=== PATIENT | female | born 1930 | race Caucasian/White ===

== ENCOUNTER 2016-12-10 18:24 | Emergency (ER) | payer MEDICARE ==
[2016-12-10] MEDS ORDERED: SODIUM CHLORIDE 1,000 ML IV SCH (19:30)
[2016-12-10 19:39] VITALS: BMI 29.2
[2016-12-10 20:08] LABS: BASOPHIL 0.7 % (0-2.0); EOSINOPHIL 4.4 % (0-4.5); MCH 31.9 pg (25.7-33.7); MCHC 33.2 g/dl (32.0-36.0); MEAN CELL VOLUME 96.2 fl (80-96); MEAN PLT VOLUME 7.6 fl (7.5-11.1); NEUTROPHILS 61.2 % (42.8-82.8); PLATELET COUNT 348 K/MM3 (134-434); RDW 14.5 % (11.6-15.6)
[2016-12-10 23:00] LABS: ALBUMIN 3.1 g/dl (3.4-5.0); ANION GAP 9 (8-16); BILIRUBIN,TOTAL 0.3 mg/dL (0.2-1.0); CALCIUM 8.8 mg/dL (8.5-10.1); CO2 26 mmol/L (21-32); CREATININE 1.1 mg/dL (0.55-1.02); GLUCOSE,RANDOM 93 mg/dL (74-106); SGOT/AST 12 U/L (15-37); SGPT/ALT 11 U/L (12-78); TOT PROT 5.9 g/dl (6.4-8.2)
[2016-12-10 23:03] LABS: ALK PHOS 69 U/L (45-117); TROPONIN I < 0.02 ng/ml (0.00-0.05)
--- NOTE | 2016-12-10 23:46 | PDOC ---
History of Present Illness - General Chief Complaint: Lightheaded Stated Complaint: Lightheaded Time Seen by Provider: 12/10/16 19:07 History Source: Patient Exam Limitations: No Limitations - History of Present Illness Initial Comments: 12/10/16 21:41 86yo Female patient presented to ED c/o dizziness. Patient states while watching TV the room began spinning for approximately 30 sec. She closed her eye - spinning stopped, but felt pain to left side of body from head to toes w/ left sided jaw pain. Patient reports sx began around 6pm tonight. She reported that she took a Tramadol for pain at 10am this morning and thinks this may have something to do with her symptoms. Denies CP, Abd pain, Back pain, Diff breathing, n/v/d, fever, cough, congestion, dysuria, hematuria or any other complaints at this time. Past History - Travel Traveled outside of the country in the last 30 days: No Close contact w/someone who was outside of country & ill: No - Past Medical History Allergies/Adverse Reactions: Allergies Allergy/AdvReac Type Severity Reaction Status Date / Time No Known Allergies Allergy Verified 12/10/16 19:39 Home Medications: Ambulatory Orders Aspirin [ASA -] 81 mg PO DAILY #0 tab.chew 08/22/12 Levothyroxine [Synthroid -] 75 mcg PO DAILY #0 tablet 08/22/12 Meclizine HCl [Antivert -] 25 mg PO Q6H PRN #30 tablet 08/22/12 Olmesartan/Hydrochlorothiazide [Benicar Hct 40-25 mg Tablet] 1 each PO DAILY #0 tablet 08/22/12 Tramadol HCl 50 mg PO TID PRN #10 tablet MDD 3 10/14/16 Levofloxacin [Levaquin] 750 mg PO DAILY #7 tab 12/11/16 HTN: Yes Thyroid Disease: Yes - Surgical History Appendectomy: Yes - Psycho/Social/Smoking Cessation Hx Anxiety: No Suicidal Ideation: No Smoking Status: No Smoking History: Never smoked Have you smoked in the past 12 months: No Number of Cigarettes Smoked Daily: 0 Hx Alcohol Use: No Drug/Substance Use Hx: No Hx Substance Use Treatment: No Review of Systems - Review of Systems Able to Perform ROS?: Yes Is the patient limited Cymro proficient: No Constitutional: No: Chills, Fever, Weakness HEENTM: No: Blurred Vision, Double Vision, Ear Pain, Difficulty Swallowing Respiratory: No: Symptoms reported, See HPI, Cough, Orthopnea, Shortness of Breath, SOB with Exertion, SOB at Rest, Stridor, Wheezing, Productive cough, Hemoptysis, Other Cardiac (ROS): No: Symptoms Reported, See HPI, Chest Pain, Edema, Irregular Heart Rate, Lightheadedness, Palpitations, Syncope, Chest Tightness, Other ABD/GI: No: Symptoms Reported, See HPI, Abdominal Distended, Abd. Pain w/ defecation, Blood Streaked Bowels, Constipated, Diarrhea, Difficulty Swallowing , Nausea, Poor Appetite, Poor Fluid Intake, Rectal Bleeding, Vomiting, Indigestion, Abdominal cramping, Tarry Stools, Other : No: Symptoms Reported, See HPI, Burning, Dysuria, Discharge, Frequency, Flank Pain, Hematuria, Incontinence, Pain, Urgency, Testicular Mass, Testicular Swelling, Lesions, Testicular Pain, Other Musculoskeletal: Yes: Muscle Pain (Throughout left side of patients' body.). No : Back Pain Integumentary: No: Symptoms Reported, See HPI, Bruising, Change in Color, Change in Hair/Nails, Dryness, Erythema, Flushing, Lesions, Lumps, Pallor, Pruritus, Rash, Sweating, Other Neurological: No: Symptoms reported, See HPI, Headache, Numbness, Paresthesia, Pre-Existing Deficit, Seizure, Tingling, Tremors, Weakness, Unsteady Gait, Ataxia, Dizziness, Other All Other Systems: Reviewed and Negative *Physical Exam - Vital Signs Last Vital Signs Temp Pulse Resp BP Pulse Ox 97.9 F 72 20 171/60 100 12/10/16 19:00 12/10/16 19:00 12/10/16 19:00 12/10/16 19:00 12/10/16 19:00 - Physical Exam General Appearance: Yes: Nourished, Appropriately Dressed. No: Apparent Distress, Mild Distress, Moderate Distress, Severe Distress HEENT: positive: EOMI, HOMER, Normal ENT Inspection, Normal Voice, Symmetrical, TMs Normal, Pharynx Normal Neck: positive: Trachea midline, Supple. negative: Decreased range of motion, Stridor, Lymphadenopathy (R), Lymphadenopathy (L), Tender lateral, Tender midline Respiratory/Chest: positive: Lungs Clear, Normal Breath Sounds. negative: Respiratory Distress, Accessory Muscle Use, Labored Respiration, Rapid RR, Crackles, Rales, Rhonchi, Stridor, Wheezing Cardiovascular: positive: Regular Rhythm, Regular Rate. negative: JVD, Murmur Gastrointestinal/Abdominal: positive: Normal Bowel Sounds, Soft, Distended. negative: Guarding, Rebound, Tenderness Musculoskeletal: positive: Normal Inspection. negative: CVA Tenderness Extremity: positive: Normal Capillary Refill, Normal Inspection, Normal Range of Motion. negative: Swelling, Calf Tenderness Integumentary: positive: Normal Color, Dry, Warm Neurologic: positive: medical asst II-XII NML intact, Fully Oriented, Alert, Normal Mood/ Affect, Normal Response, Motor Strength 5/5 Heart Score/ECG Review - History History: Slightly suspicious - Electrocardiogram EKG: Normal - Age Age: >/= 65 - Risk Factors Risk Factors Heart Score: Yes Hx Hypertension Based on the list above the patient has:: 1-2 risk factors - Troponin Troponin: </= normal limit - Score Heart Score - Total: 3 - ECG Impressions Normal ECG: Yes Non-specific ST Elevation: No Ischemic Changes: No Bradycardia: No Torsades mic Pointes: No WPW: No Comment:: 12/10/16 23:49 NORMAL EKG. ED Treatment Course - LABORATORY CBC & Chemistry Diagram: 12/10/16 19:40 12/10/16 22:20 - ADDITIONAL ORDERS Additional order review: Laboratory Results 12/10/16 12/10/16 12/10/16 22:20 19:39 19:39 Sodium 141 Cancelled Potassium 4.2 Cancelled Chloride 106 Cancelled Carbon Dioxide 26 Cancelled Anion Gap 9 Cancelled BUN 26 H D Cancelled Creatinine 1.1 H Cancelled Creat Clearance w eGFR 46.98 Cancelled Random Glucose 93 Cancelled Calcium 8.8 Cancelled Total Bilirubin 0.3 D Cancelled AST 12 L Cancelled ALT 11 L D Cancelled Alkaline Phosphatase 69 D Cancelled Creatine Kinase 64 Cancelled Troponin I < 0.02 Cancelled B-Natriuretic Peptide 91.61 Cancelled Total Protein 5.9 L Cancelled Albumin 3.1 L Cancelled 12/10/16 19:40 RBC 3.49 L MCV 96.2 H MCHC 33.2 RDW 14.5 MPV 7.6 Neutrophils % 61.2 Lymphocytes % 19.4 Monocytes % 14.3 H Eosinophils % 4.4 Basophils % 0.7 - RADIOLOGY Radiology Studies Ordered: Category Date Time Status HEAD CT WITHOUT CONTRAST [CT] Stat CT Scan 12/10/16 19:20 Completed CHEST X-RAY PORTABLE* [RAD] Stat Radiology 12/10/16 19:20 Completed *DC/Admit/Observation/Transfer Diagnosis at time of Disposition: UTI (urinary tract infection), bacterial - Discharge Dispostion Disposition: HOME Condition at time of disposition: Stable Admit: No - Prescriptions - Patient Instructions
--- NOTE | 2016-12-11 00:05 | HP ---
Admitting History and Physical - Primary Care Physician PCP: Phyllis Myers - Smoking History Smoking history: Never smoked Have you smoked in the past 12 months: No Aproximately how many cigarettes per day: 0 - Alcohol/Substance Use Hx Alcohol Use: No Home Medications - Allergies Allergies/Adverse Reactions: Allergies Allergy/AdvReac Type Severity Reaction Status Date / Time No Known Allergies Allergy Verified 12/10/16 19:39 - Home Medications Home Medications: Ambulatory Orders Aspirin [ASA -] 81 mg PO DAILY #0 tab.chew 08/22/12 Levothyroxine [Synthroid -] 75 mcg PO DAILY #0 tablet 08/22/12 Meclizine HCl [Antivert -] 25 mg PO Q6H PRN #30 tablet 08/22/12 Olmesartan/Hydrochlorothiazide [Benicar Hct 40-25 mg Tablet] 1 each PO DAILY #0 tablet 08/22/12 Tramadol HCl 50 mg PO TID PRN #10 tablet MDD 3 10/14/16 Physical Examination Vital Signs: Vital Signs Temperature 97.9 F 12/10/16 19:00 Pulse Rate 72 12/10/16 19:00 Respiratory Rate 20 12/10/16 19:00 Blood Pressure 171/60 12/10/16 19:00 O2 Sat by Pulse Oximetry (%) 100 12/10/16 19:00 HENT: Yes: Atraumatic Neck: Yes: Supple Cardiovascular: Yes: Regular Rate and Rhythm Respiratory: Yes: CTA Bilaterally Gastrointestinal: Yes: Normal Bowel Sounds Extremities: Yes: WNL Labs: CBC, BMP 12/10/16 19:40 12/10/16 22:20
--- NOTE | 2016-12-11 00:32 | PDOC ---
*Physical Exam - Vital Signs Last Vital Signs Temp Pulse Resp BP Pulse Ox 97.9 F 72 20 171/60 100 12/10/16 19:00 12/10/16 19:00 12/10/16 19:00 12/10/16 19:00 12/10/16 19:00 ED Treatment Course - LABORATORY CBC & Chemistry Diagram: 12/10/16 19:40 12/10/16 22:20 - ADDITIONAL ORDERS Additional order review: Laboratory Results 12/10/16 12/10/16 12/10/16 22:20 19:39 19:39 Sodium 141 Cancelled Potassium 4.2 Cancelled Chloride 106 Cancelled Carbon Dioxide 26 Cancelled Anion Gap 9 Cancelled BUN 26 H D Cancelled Creatinine 1.1 H Cancelled Creat Clearance w eGFR 46.98 Cancelled Random Glucose 93 Cancelled Calcium 8.8 Cancelled Total Bilirubin 0.3 D Cancelled AST 12 L Cancelled ALT 11 L D Cancelled Alkaline Phosphatase 69 D Cancelled Creatine Kinase 64 Cancelled Troponin I < 0.02 Cancelled B-Natriuretic Peptide 91.61 Cancelled Total Protein 5.9 L Cancelled Albumin 3.1 L Cancelled 12/10/16 19:40 RBC 3.49 L MCV 96.2 H MCHC 33.2 RDW 14.5 MPV 7.6 Neutrophils % 61.2 Lymphocytes % 19.4 Monocytes % 14.3 H Eosinophils % 4.4 Basophils % 0.7 Medical Decision Making - Medical Decision Making 12/11/16 00:32 agree with care from WHITNEY Maldonado *DC/Admit/Observation/Transfer Diagnosis at time of Disposition: UTI (urinary tract infection), bacterial - Discharge Dispostion Disposition: HOME Condition at time of disposition: Stable - Prescriptions Prescriptions: Levofloxacin [Levaquin] 750 mg PO DAILY #7 tab Meclizine HCl 25 mg PO TID PRN #30 tab.chew PRN Reason: Dizziness - Referrals Referrals: Jewel Nassar MD [Primary Care Provider] - - Patient Instructions Printed Discharge Instructions: Urinary Tract Infection
[2016-12-11 00:33] LABS: URINE APPEARANCE TURBID; URINE BILIRUBIN NEGATIVE (NEGATIVE); URINE COLOR YELLOW; URINE GLUCOSE (UA) NEGATIVE (NEGATIVE); URINE KETONE NEGATIVE (NEGATIVE); URINE NITRITE POSITIVE (NEGATIVE); URINE UROBILINOGEN NEGATIVE E.U./dl (0.2-1.0)
[2016-12-11 00:49] LABS: URINE BLOOD 2+ (NEGATIVE); URINE LEUK ESTERASE 3+ (NEGATIVE); URINE PROTEIN 1+ (NEGATIVE)
[2016-12-11 00:51] LABS: URINE BACTERIA MANY /hpf (NONE SEEN); URINE MUCUS RARE; URINE RBC 24 /hpf (0-3); URINE WBC 1792 /hpf (3-5)
[2016-12-11] MEDS ORDERED: LEVOFLOXACIN 750 MG IVPB 150 ML IVPB ONE ×2 (01:18→01:54)
[2016-12-11 03:50] VITALS: BP 180/78; PULSE 71; TEMP 98
[2016-12-11] MEDS ORDERED: LEVOTHYROXINE NA 75 MCG TABLET (FP) PO SCH (10:00)
[2016-12-11] MEDS ORDERED: PATIENT'S OWN MEDICATION (NON-FORMULARY) (Olmesartan/Hydrochlorothiazide [Benicar Hct 40-2 PO SCH (10:00)
[2016-12-11] MEDS ORDERED: ASPIRIN 81 MG CHEWABLE TABLETS PO SCH (10:00)
--- NOTE | 2016-12-11 16:08 | EKG ---
Test Reason : Blood Pressure : / mmHG Vent. Rate : 063 BPM Atrial Rate : 063 BPM P-R Int : 208 ms QRS Dur : 084 ms QT Int : 434 ms P-R-T Axes : 059 012 047 degrees QTc Int : 444 ms NORMAL SINUS RHYTHM POSSIBLE LEFT ATRIAL ENLARGEMENT BORDERLINE ECG WHEN COMPARED WITH ECG OF 13-OCT-2016 20:57, NO SIGNIFICANT CHANGE WAS FOUND Confirmed by OSKAR KIRKLAND MD ([id number]) on 12/11/2016 4:07:46 PM Referred By: Confirmed By:OSKAR KIRKLAND MD
== END 2016-12-11 04:26 | disposition home or self-care (01) ==
LOC: JER 18:24 → UNDOADMIN 12-11 00:03 → JERBED 12-11 00:03 → JER 12-11 04:26
DX: N39.0 Urinary tract infection, site not specified (principal); I10 Essential (primary) hypertension; E07.9 Disorder of thyroid, unspecified
CPT/HCPCS: 36415; 70450-TC; 71010-TC; 80053; 81003; 81015; 82550; 83880; 84484; 85025; 87086; 87186; 93005; 93010; 99284-25

== ENCOUNTER 2017-06-27 12:55 | Inpatient (IN) | payer MEDICARE ==
--- NOTE | 2017-06-27 13:50 | PDOC ---
History of Present Illness - General History Source: Patient Exam Limitations: No Limitations - History of Present Illness Initial Comments: 06/27/17 15:37 The patient is a 87 year old female brought via EMS nad presenting with her daughter, with a significant past medical history of HTN, chronic back pain, chronic bilateral knee pain, prolapsed bladder and thyroid disease, who presents to the emergency department with weakness since yesterday. The daughter reports that the patient fell yesterday (slid off her couch) and attempted to break her fall against the cough, which she did but then slid to the floor. There was no head injury, or loc. The patient has urinary incontinence sometimes. The pateint has an upcoming breast biopsy after a nodule was found in her breast. The patient denies chest pain, shortness of breath, headache and dizziness. Denies fever, chills, nausea, vomit, diarrhea and constipation. Denies dysuria, frequency, urgency and hematuria. Allergies: None Past surgical history: Appendectomy Social history: No alcohol, tobacco or drug use reported PMD - Dr. Kike Nassar <Vic Valenzuela - Last Filed: 06/27/17 15:37> - General History Source: Patient Exam Limitations: No Limitations <Yadiel Carmona - Last Filed: 06/27/17 15:49> - General Chief Complaint: Weakness Stated Complaint: CONFUSE, SHAKING Time Seen by Provider: 06/27/17 13:16 Past History <Vic Valenzuela - Last Filed: 06/27/17 15:37> - Past Medical History HTN: Yes Thyroid Disease: Yes - Surgical History Appendectomy: Yes - Psycho/Social/Smoking Cessation Hx Anxiety: No Suicidal Ideation: No Smoking Status: No Smoking History: Never smoked Have you smoked in the past 12 months: No Number of Cigarettes Smoked Daily: 0 Hx Alcohol Use: No Drug/Substance Use Hx: No Hx Substance Use Treatment: No <Yadiel Carmona - Last Filed: 06/27/17 15:49> - Past Medical History Allergies/Adverse Reactions: Allergies Allergy/AdvReac Type Severity Reaction Status Date / Time No Known Allergies Allergy Verified 06/27/17 13:28 Home Medications: Ambulatory Orders Aspirin [ASA -] 81 mg PO DAILY #0 tab.chew 08/22/12 Levothyroxine [Synthroid -] 75 mcg PO DAILY #0 tablet 08/22/12 Meclizine HCl [Antivert -] 25 mg PO Q6H PRN #30 tablet 08/22/12 Olmesartan/Hydrochlorothiazide [Benicar Hct 40-25 mg Tablet] 1 each PO DAILY #0 tablet 08/22/12 Tramadol HCl 50 mg PO TID PRN #10 tablet MDD 3 10/14/16 Review of Systems - Review of Systems Able to Perform ROS?: Yes Comments:: 06/27/17 15:37 CONSTITUTIONAL: Reported: Genralzied weakness No reported: Fever, Chills, Diaphoresis, Malaise, Loss of Appetite HEENT: No reported: Rhinorrhea, Nasal Congestion, Throat Pain, Throat Swelling, Difficulty Swallowing, Mouth Swelling, Ear Pain, Eye Pain, Visual Changes CARDIOVASCULAR: No reported: Chest Pain, Syncope, Palpitations, Irregular Heart Rate, Lightheadedness, Peripheral Edema RESPIRATORY: No reported: Cough, Shortness of Breath, SOB with Exertion, Orthopnea, Wheezing , Stridor, Hemoptysis GASTROINTESTINAL: No reported: Abdominal pain, Abdominal Distension, Nausea, Vomiting, Diarrhea, Constipation, Melena, Hematochezia GENITOURINARY: No reported: Dysuria, Frequency, Urgency, Hesitancy, Flank Pain, Genital Pain MUSCULOSKELETAL: No reported: Myalgia, Arthralgia, Joint Swelling, Back pain, Neck Pain SKIN: No reported: Rash, Itching, Pallor HEMEATOLOGIC/IMMUNOLOGIC: No reported: Easy Bleeding, Easy Bruising, Lymphadenopathy, Frequent infections ENDOCRINE: No reported: Unexplained Weight Gain, Unexplained Weight Loss, Heat Intolerance , Cold Intolerance NEUROLOGIC: No reported: Headache, Focal Weakness, Paresthesias, Vertigo, Lightheadedness, Unsteady Gait, Seizure, Mental Status Changes, Incontinence PSYCHIATRIC: No reported: Anxiety, Depression <Vic Valenzuela - Last Filed: 06/27/17 15:37> *Physical Exam - Vital Signs Last Vital Signs Temp Pulse Resp BP Pulse Ox 99.0 F 71 22 142/49 95 06/27/17 13:05 06/27/17 13:05 06/27/17 13:05 06/27/17 13:05 06/27/17 13:05 - Physical Exam Comments: 06/27/17 15:37 GENERAL: The patient is awake, alert, Nontoxic - in no acute distress. HEAD: Normocephalic, atraumatic. EYES: extraocular movements intact, sclera anicteric, conjunctiva clear. ENT: Normal voice, Moist mucous membranes. NECK: Normal range of motion, supple LUNGS: Breath sounds equal, clear to auscultation bilaterally. No wheezes, no rhonchi, no rales. HEART: Regular rate and rhythm, without murmur, rub or gallop. ABDOMEN: Soft, nontender, normoactive bowel sounds. No guarding, no rebound.No CVA tenderness EXTREMITIES: Normal range of motion, no edema. No clubbing or cyanosis. No cords, erythema, or tenderness. NEUROLOGICAL: No facial assymetry, Normal speech, PSYCH: Normal mood, normal affect. SKIN: Warm, Dry, normal turgor, <Vic Valenzuela - Last Filed: 06/27/17 15:37> - Vital Signs Last Vital Signs Temp Pulse Resp BP Pulse Ox 99.0 F 71 22 142/49 95 06/27/17 13:05 06/27/17 13:05 06/27/17 13:05 06/27/17 13:05 06/27/17 13:05 <Yadiel Carmona - Last Filed: 06/27/17 15:49> Heart Score/ECG Review - ECG Impressions Comment:: 06/27/17 15:49 Twelve-lead EKG was performed and reviewed by me. There is normal sinus rhythm with a normal rate. Rate of 63 The axis is normal. The intervals are normal. There are no ST or T wave abnormalities. <Yadiel Carmona - Last Filed: 06/27/17 15:49> ED Treatment Course - LABORATORY CBC & Chemistry Diagram: 06/27/17 14:02 06/27/17 14:02 - ADDITIONAL ORDERS Additional order review: Laboratory Results 06/27/17 06/27/17 06/27/17 14:02 14:02 14:02 INR Sodium 134 L Potassium 4.6 Chloride 98 Carbon Dioxide 24 Anion Gap 12 BUN 34 H D Creatinine 2.1 H D Creat Clearance w eGFR 22.23 Random Glucose 98 Calcium 8.9 Total Bilirubin 0.7 D AST 17 D ALT 13 Alkaline Phosphatase 85 D Creatine Kinase 165 Creatine Kinase Index 0.9 CK-MB (CK-2) 1.640 Troponin I < 0.02 Total Protein 6.7 Albumin 3.4 TSH 2.18 Urine Color Yellow Urine Appearance Cloudy Urine pH 5.0 Urine Protein 1+ H Urine Glucose (UA) Negative Urine Ketones Negative Urine Blood 2+ H Urine Nitrite Positive Urine Bilirubin Negative Urine Urobilinogen Negative Ur Leukocyte Esterase 2+ H Urine RBC 2 Urine WBC 530 Ur Epithelial Cells Rare Urine Mucus Rare 06/27/17 14:02 INR 1.32 H D Sodium Potassium Chloride Carbon Dioxide Anion Gap BUN Creatinine Creat Clearance w eGFR Random Glucose Calcium Total Bilirubin AST ALT Alkaline Phosphatase Creatine Kinase Creatine Kinase Index CK-MB (CK-2) Troponin I Total Protein Albumin TSH Urine Color Urine Appearance Urine pH Urine Protein Urine Glucose (UA) Urine Ketones Urine Blood Urine Nitrite Urine Bilirubin Urine Urobilinogen Ur Leukocyte Esterase Urine RBC Urine WBC Ur Epithelial Cells Urine Mucus 06/27/17 14:02 RBC 3.20 L MCV 91.3 MCHC 32.4 RDW 15.8 H MPV 8.2 Neutrophils % Y Lymphocytes % Y - Medications Given in the ED: ED Medications Discontinued Medications Generic Name Dose Route Start Last Admin Trade Name Freq PRN Reason Stop Dose Admin Ceftriaxone Sodium 1 gm/ 50 mls @ 100 mls/hr 06/27/17 14:36 06/27/17 15:10 Dextrose IVPB 06/27/17 15:05 100 mls/hr ONCE ONE Administration <Vic Valenzuela - Last Filed: 06/27/17 15:37> - LABORATORY CBC & Chemistry Diagram: 06/27/17 14:02 06/27/17 14:02 - RADIOLOGY Radiology Studies Ordered: Category Date Time Status CHEST X-RAY PORTABLE* [RAD] Stat Radiology 06/27/17 13:45 Ordered <Yadiel Carmona - Last Filed: 06/27/17 15:49> Medical Decision Making - Medical Decision Making 06/27/17 13:47 89y F hx of hypothyroidism, htn, chronic back pain, prolapsed bladder presents for evaluation of weakness. Per the daugther the pt has been unable to ambulate by herself last night and was shaky. The pt denies any focal complaints including chest pain, sob, cough, abd pain, dysuria, diarrhea, headache, dizziness, dsyarthria, numbness/tingling/weakness, neck pain. pts exam is also nonfocal. differential is wide and includes occult infection, uti/pna, acs, anemia, metabolic dernagement, thyroid disease will ck labs, ua will ck ekg/trops will reassess A portion of this note was documented by scribe services under my direction. I have reviewed the details of the note, within reason, and agree with the documentation with the following case summary and management plan written by me 06/27/17 15:34 labs reviewed noted for elevated cr. to 2.1 up tfomr 1.1 ua c/w uti will admit for further management of Uti and sobia pt written for ctx case dw dr. wynne agree with adimssion for further management Case discussed in detail with admitting physician including history, physical exam and ancillary studies. Admitting physician has assumed care for the patient, will follow all pending diagnostics and will complete the evaluation and treatment. <Yadiel Carmona - Last Filed: 06/27/17 15:49> *DC/Admit/Observation/Transfer - Attestations Scribe Attestion: 06/27/17 15:37 Documentation prepared by Vic Valenzuela, acting as medical logistics specialist for Yadiel Carmona MD <Vic Valenzuela - Last Filed: 06/27/17 15:37> - Discharge Dispostion Admit: Yes <Yadiel Carmona - Last Filed: 06/27/17 15:49> Diagnosis at time of Disposition: UTI (urinary tract infection), bacterial Accident due to mechanical fall without injury Qualifiers: Encounter type: initial encounter Qualified Code(s): W19.XXXA - Unspecified fall, initial encounter Acute kidney failure Qualifiers: Acute renal failure type: unspecified Qualified Code(s): N17.9 - Acute kidney failure, unspecified - Discharge Dispostion Condition at time of disposition: Stable - Referrals Referrals: Jewel Nassar MD [Primary Care Provider] -
[2017-06-27 14:15] LABS: MCH 29.6 pg (25.7-33.7); MCHC 32.4 g/dl (32.0-36.0); MEAN CELL VOLUME 91.3 fl (80-96); MEAN PLT VOLUME 8.2 fl (7.5-11.1); PLATELET COUNT 286 K/MM3 (134-434); RDW 15.8 % (11.6-15.6); WHITE BLOOD COUNT 20.9 K/mm3 (4.0-10.0)
[2017-06-27 14:18] LABS: URINE APPEARANCE CLOUDY; URINE BILIRUBIN NEGATIVE (NEGATIVE); URINE BLOOD 2+ (NEGATIVE); URINE COLOR YELLOW; URINE GLUCOSE (UA) NEGATIVE (NEGATIVE); URINE KETONE NEGATIVE (NEGATIVE); URINE LEUK ESTERASE 2+ (NEGATIVE); URINE NITRITE POSITIVE (NEGATIVE); URINE PROTEIN 1+ (NEGATIVE); URINE UROBILINOGEN NEGATIVE mg/dL (0.2-1.0)
[2017-06-27 14:22] LABS: URINE MUCUS RARE; URINE RBC 2 /hpf (0-3); URINE WBC 530 /hpf (3-5)
[2017-06-27] MEDS ORDERED: CEFTRIAXONE 1 GM in DEXTROSE 5%-WATER - 50 ML IVPB ONE (14:36)
[2017-06-27 14:42] LABS: ALBUMIN 3.4 g/dl (3.4-5.0); ANION GAP 12 (8-16); BILIRUBIN,TOTAL 0.7 mg/dL (0.2-1.0); CALCIUM 8.9 mg/dL (8.5-10.1); CO2 24 mmol/L (21-32); CREATININE 2.1 mg/dL (0.55-1.02); GLUCOSE,RANDOM 98 mg/dL (74-106); SGOT/AST 17 U/L (15-37); SGPT/ALT 13 U/L (12-78); TOT PROT 6.7 g/dl (6.4-8.2)
[2017-06-27 14:44] LABS: INR 1.32 (0.82-1.09); PROTHROMBIN TIME (PATIENT) 14.6 SEC (9.98-11.88)
[2017-06-27 14:45] LABS: ALK PHOS 85 U/L (45-117); CPK 165 IU/L (26-192); TROPONIN I < 0.02 ng/ml (0.00-0.05)
[2017-06-27] MEDS ORDERED: CEFTRIAXONE 50 ML ONE (14:55)
[2017-06-27 15:19] LABS: PLATELET COMMENT2 FEW LARGE PLTS; PLATELET ESTIMATE ADEQUATE (NORMAL); TOTAL CELLS COUNTED 100
[2017-06-27] MEDS ORDERED: SODIUM CHLORIDE 500 ML IV STA (15:34)
[2017-06-27] MEDS ORDERED: MECLIZINE HCL 25 MG TABLET (FP) PO PRN (17:18)
[2017-06-27] MEDS ORDERED: DEXTROSE 5%-0.45% SALINE 1,000 ML IV SCH (17:30)
[2017-06-27 17:43] VITALS: BMI 32.1
--- NOTE | 2017-06-27 21:00 | HP ---
Admitting History and Physical - Admission Chief Complaint: weakness, unable to walk History of Present Illness: Patient has a history of "arthritis" in knees and notes a few days ago she "slid " off her couch when she tried to get up. Notes EMS was called and helped her up, but as she was unhurt she did not want to go to hospital. Dtr noted, however that now patient unable to walk, as seems too weak. Patient denies any N /V or diarrhea, no coughing. In ED found to have WBC 20,000, anemic at hgb 9.4 and 500 WBC in urine, so started on treatment for UTI. Patient denies any blood per rectum. History Source: Patient, Family Member ((dtr)), Medical Record Limitations to Obtaining History: No Limitations - Past Medical History SANITIZER: Yes: Vertigo Cardiovascular: Yes: CAD, HTN, Hyperlipdemia, Other (LVH) Gastrointestinal: Yes: GERD, Hiatal Hernia, Irritable Bowel Disease Hepatobiliary: Yes: Other (gall bladder sludge) Psych: Yes: Anxiety Musculoskeletal: Yes: Chronic low back pain, Osteoarthritis Endocrine: Yes: Hypothyroidism, Other (osteoporosis, vit d def) Additional Past Medical History: left sided ptosis - Past Surgical History Past Surgical History: Yes: Appendectomy, Cataract Removal (bilateral), Hysterectomy (with BSO) - Smoking History Smoking history: Never smoked Have you smoked in the past 12 months: No Aproximately how many cigarettes per day: 0 - Alcohol/Substance Use Hx Alcohol Use: No - Social History 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 Other Social History: , 4 children Home Medications - Allergies Allergies/Adverse Reactions: Allergies Allergy/AdvReac Type Severity Reaction Status Date / Time No Known Allergies Allergy Verified 06/27/17 13:28 - Home Medications Home Medications: Ambulatory Orders Aspirin [ASA -] 81 mg PO DAILY #0 tab.chew 08/22/12 Levothyroxine [Synthroid -] 75 mcg PO DAILY #0 tablet 08/22/12 Meclizine HCl [Antivert -] 25 mg PO Q6H PRN #30 tablet 08/22/12 Olmesartan/Hydrochlorothiazide [Benicar Hct 40-25 mg Tablet] 1 each PO DAILY #0 tablet 08/22/12 Tramadol HCl 50 mg PO TID PRN #10 tablet MDD 3 10/14/16 Family Disease History - Family Disease History Family History: Unremarkable Review of Systems - Review of Systems Constitutional: reports: Malaise, Weakness. denies: Loss of Appetite, Unintentional Wgt. Loss Eyes: reports: No Symptoms HENT: denies: Difficult Swallowing, Epistaxis, Nasal Congestion Neck: denies: Pain on Movement, Swollen Glands Cardiovascular: denies: Chest Pain, Palpitations Respiratory: denies: Cough, SOB Gastrointestinal: denies: Abdominal Pain, Diarrhea, Dysphagia, Nausea, Vomiting Genitourinary: denies: Burning, Dysuria Musculoskeletal: reports: Joint Pain (bilateral knees) Neurological: denies: Syncope Physical Examination Vital Signs: Vital Signs Temperature 100.0 F H 06/27/17 17:29 Pulse Rate 73 06/27/17 17:29 Respiratory Rate 22 06/27/17 17:29 Blood Pressure 157/64 06/27/17 17:29 O2 Sat by Pulse Oximetry (%) 98 06/27/17 17:29 Constitutional: Yes: Well Nourished, No Distress Eyes: Yes: EOM Intact, PERRL HENT: Yes: Atraumatic Neck: Yes: Supple. No: Lymphadenopathy, Tenderness Cardiovascular: Yes: Regular Rate and Rhythm, S1, S2. No: Murmur Respiratory: Yes: Regular, CTA Bilaterally. No: Rales, Rhonchi, Wheezes Gastrointestinal: Yes: Normal Bowel Sounds, Soft. No: Distention, Tenderness Musculoskeletal: Yes: Other (OA changes b/l knees) Edema: No Neurological: Yes: Alert, Oriented Labs: Laboratory Tests 06/27/17 06/27/17 06/27/17 14:02 14:02 14:02 WBC 20.9 H D RBC 3.20 L Hgb 9.4 L D Hct 29.2 L MCV 91.3 MCH 29.6 MCHC 32.4 RDW 15.8 H Plt Count 286 MPV 8.2 Total Counted 100 Neutrophils % Y Neutrophils % (Manual) 82 Band Neuts % (Manual) 8 Lymphocytes % Y Lymphocytes % (Manual) 4 L Monocytes % (Manual) 6 Platelet Estimate Adequate Platelet Comment Few large plts INR 1.32 H D Sodium Potassium Chloride Carbon Dioxide Anion Gap BUN Creatinine Creat Clearance w eGFR Random Glucose Calcium Total Bilirubin AST ALT Alkaline Phosphatase Creatine Kinase Creatine Kinase Index CK-MB (CK-2) Troponin I Total Protein Albumin TSH Urine Color Yellow Urine Appearance Cloudy Urine pH 5.0 Ur Specific [place] 1.015 Urine Protein 1+ H Urine Glucose (UA) Negative Urine Ketones Negative Urine Blood 2+ H Urine Nitrite Positive Urine Bilirubin Negative Urine Urobilinogen Negative Ur Leukocyte Esterase 2+ H Urine RBC 2 Urine WBC 530 Ur Epithelial Cells Rare Urine Mucus Rare 06/27/17 06/27/17 14:02 14:02 WBC RBC Hgb Hct MCV MCH MCHC RDW Plt Count MPV Total Counted Neutrophils % Neutrophils % (Manual) Band Neuts % (Manual) Lymphocytes % Lymphocytes % (Manual) Monocytes % (Manual) Platelet Estimate Platelet Comment INR Sodium 134 L Potassium 4.6 Chloride 98 Carbon Dioxide 24 Anion Gap 12 BUN 34 H D Creatinine 2.1 H D Creat Clearance w eGFR 22.23 Random Glucose 98 Calcium 8.9 Total Bilirubin 0.7 D AST 17 D ALT 13 Alkaline Phosphatase 85 D Creatine Kinase 165 Creatine Kinase Index 0.9 CK-MB (CK-2) 1.640 Troponin I < 0.02 Total Protein 6.7 Albumin 3.4 TSH 2.18 Urine Color Urine Appearance Urine pH Ur Specific [place] Urine Protein Urine Glucose (UA) Urine Ketones Urine Blood Urine Nitrite Urine Bilirubin Urine Urobilinogen Ur Leukocyte Esterase Urine RBC Urine WBC Ur Epithelial Cells Urine Mucus Imaging - Results Chest X-ray: Report Reviewed (NO infiltrates, blunting of) Problem List - Problems (1) UTI (urinary tract infection), bacterial Assessment/Plan: ?source of her weakness and failure to thrive -started on abx, await culture Code(s): N39.0 - URINARY TRACT INFECTION, SITE NOT SPECIFIED A49.9 - BACTERIAL INFECTION, UNSPECIFIED (2) Acute kidney failure Assessment/Plan: -Creatinine 1.1 earlier this year at an ER visit -renal consult -check renal dopplers -low dose IVF Code(s): N17.9 - ACUTE KIDNEY FAILURE, UNSPECIFIED Qualifiers: Acute renal failure type: unspecified Qualified Code(s): N17.9 - Acute kidney failure, unspecified (3) Elevated WBC count Assessment/Plan: -due to UTI, follow on abx Code(s): D72.829 - ELEVATED WHITE BLOOD CELL COUNT, UNSPECIFIED (4) Anemia Assessment/Plan: -Hgb 11.1 at earlier visit this year (in ER) -check iron studies, B12/ folate -?anemia contributing to her weakness Code(s): D64.9 - ANEMIA, UNSPECIFIED (5) Osteoarthritis Assessment/Plan: -PT eval Code(s): M19.90 - UNSPECIFIED OSTEOARTHRITIS, UNSPECIFIED SITE (6) Hypothyroidism Assessment/Plan: -TSH controlled on current dose synthroid Code(s): E03.9 - HYPOTHYROIDISM, UNSPECIFIED (7) Hypertension Assessment/Plan: -with ARF will hold Benicar HCT -[facility] Code(s): I10 - ESSENTIAL (PRIMARY) HYPERTENSION
[2017-06-27] MEDS: HEPARIN NA (PORCINE) 5,000 UNITS/ML 1ML VIAL SQ SCH (21:32)
[2017-06-27] MEDS: ACETAMINOPHEN 325 MG TABLET (FP) PO PRN (22:14)
[2017-06-28] MEDS: traMADol HCL 50 MG TABLET PO PRN ×2 (06:34→18:58)
[2017-06-28] MEDS: LEVOTHYROXINE NA 75 MCG TABLET (FP) PO SCH (06:34)
[2017-06-28] MEDS: amLODIPine BESYLATE 5 MG TABLET (FP) PO SCH (07:11)
[2017-06-28 08:01] LABS: BASOPHIL 0.4 % (0-2.0); EOSINOPHIL 0.4 % (0-4.5); MCH 29.9 pg (25.7-33.7); MCHC 32.6 g/dl (32.0-36.0); MEAN CELL VOLUME 91.8 fl (80-96); MEAN PLT VOLUME 8.2 fl (7.5-11.1); NEUTROPHILS 88.6 % (42.8-82.8); PLATELET COUNT 265 K/MM3 (134-434); RDW 16.3 % (11.6-15.6); WHITE BLOOD COUNT 11.9 K/mm3 (4.0-10.0)
[2017-06-28 08:26] LABS: ALBUMIN 2.9 g/dl (3.4-5.0); ANION GAP 11 (8-16); CALCIUM 8.4 mg/dL (8.5-10.1); CO2 24 mmol/L (21-32); CREATININE 1.9 mg/dL (0.55-1.02); GLUCOSE,RANDOM 101 mg/dL (74-106); SGOT/AST 15 U/L (15-37); SGPT/ALT 11 U/L (12-78)
[2017-06-28 08:28] LABS: ALK PHOS 80 U/L (45-117); BILIRUBIN,TOTAL 0.5 mg/dL (0.2-1.0); TOT PROT 6.2 g/dl (6.4-8.2)
[2017-06-28 08:30] LABS: FERRITIN 93.896 ng/ml (6.9-282.5)
--- NOTE | 2017-06-28 08:42 | PN ---
Progress Note, Physician History of Present Illness: notes pain in left buttock going down leg today. Had fevers overnight, blood cultures drawn (on abx currently) - Current Medication List Current Medications: Active Medications Acetaminophen (Tylenol -) 650 mg PO Q4H PRN PRN Reason: FEVER OR PAIN Last Admin: 06/27/17 22:14 Dose: 650 mg Amlodipine Besylate (Norvasc -) 5 mg PO DAILY [facility] Last Admin: 06/28/17 07:11 Dose: 5 mg Aspirin (Asa -) 81 mg PO DAILY [facility] Heparin Sodium (Porcine) (Heparin -) 5,000 unit SQ BID [facility] Last Admin: 06/27/17 21:32 Dose: 5,000 unit Ceftriaxone Sodium 1 gm/ (Dextrose) 50 mls @ 100 mls/hr IVPB DAILY [facility] Levothyroxine Sodium (Synthroid -) 75 mcg PO DAILY@0700 [facility] Last Admin: 06/28/17 06:34 Dose: 75 mcg Meclizine HCl (Antivert -) 25 mg PO Q6H PRN PRN Reason: DIZZINESS Tramadol HCl (Ultram -) 50 mg PO Q8H PRN PRN Reason: PAIN LEVEL 6-10 Last Admin: 06/28/17 06:34 Dose: 50 mg - Objective Vital Signs: Vital Signs Temperature 98.9 F 06/28/17 06:00 Pulse Rate 77 06/27/17 21:43 Respiratory Rate 18 06/27/17 21:43 Blood Pressure 166/74 06/28/17 06:38 O2 Sat by Pulse Oximetry (%) 95 06/27/17 21:00 Constitutional: Yes: No Distress, Calm Neck: Yes: Supple, Trachea Midline Cardiovascular: Yes: Regular Rate and Rhythm, S1, S2. No: Murmur Respiratory: Yes: Regular, CTA Bilaterally. No: Rales, Rhonchi, Wheezes Gastrointestinal: Yes: Normal Bowel Sounds, Soft. No: Distention, Tenderness Edema: No Labs: CBC, BMP 06/28/17 07:20 INR, PTT INR 1.32 (0.82-1.09) H D 06/27/17 14:02 Problem List - Problems (1) UTI (urinary tract infection), bacterial Code(s): N39.0 - URINARY TRACT INFECTION, SITE NOT SPECIFIED A49.9 - BACTERIAL INFECTION, UNSPECIFIED (2) Acute kidney failure Code(s): N17.9 - ACUTE KIDNEY FAILURE, UNSPECIFIED Qualifiers: Acute renal failure type: unspecified Qualified Code(s): N17.9 - Acute kidney failure, unspecified (3) Elevated WBC count Code(s): D72.829 - ELEVATED WHITE BLOOD CELL COUNT, UNSPECIFIED (4) Anemia Code(s): D64.9 - ANEMIA, UNSPECIFIED (5) Osteoarthritis Code(s): M19.90 - UNSPECIFIED OSTEOARTHRITIS, UNSPECIFIED SITE (6) Hypothyroidism Code(s): E03.9 - HYPOTHYROIDISM, UNSPECIFIED (7) Hypertension Code(s): I10 - ESSENTIAL (PRIMARY) HYPERTENSION Assessment/Plan Current Active Problems Accident due to mechanical fall without injury (Acute) Acute kidney failure (Acute) Anemia (Acute) Elevated WBC count (Acute) Hypertension (Acute) Hypothyroidism (Acute) Osteoarthritis (Acute) UTI (urinary tract infection), bacterial (Acute) -for renal sono, nephrology consult -if obstructive uropathy, may have to check abd/pelv CT -does have a history of back pain, on prn tramadol, but if quesada and fevers continue may have to image back (r/o discitis)
[2017-06-28] MEDS ORDERED: cefTRIAXone SODIUM 1 GM VIAL ONE (09:49)
[2017-06-28] MEDS ORDERED: DEXTROSE 5%-WATER - 50 ML IVPB ONE (09:50)
[2017-06-28] MEDS: CEFTRIAXONE 1 GM in DEXTROSE 5%-WATER - 50 ML IVPB SCH (09:57)
[2017-06-28] MEDS: ASPIRIN 81 MG CHEWABLE TABLETS PO SCH (09:57)
[2017-06-28] MEDS: HEPARIN NA (PORCINE) 5,000 UNITS/ML 1ML VIAL SQ SCH ×2 (09:57→21:32)
[2017-06-28] MEDS ORDERED: amLODIPine BESYLATE 5 MG TABLET (FP) PO SCH (10:00)
--- NOTE | 2017-06-28 10:29 | PN ---
Progress Note (short form) - Note Progress Note: ID Full note dictated Selected Entries 06/28/17 09:52 Pulse Rate 96 H Respiratory 18 Rate Blood Pressure 124/60 Microbiology 12/11/16 00:11 Urine - Urine Clean Catch Urine Culture - Final Staphylococcus Aureus Laboratory Tests 06/27/17 06/27/17 06/28/17 14:02 14:02 07:20 WBC 20.9 H D 11.9 H D RBC 3.06 L Hct 28.1 L Plt Count 265 Creatinine Ur Leukocyte Esterase 2+ H Urine RBC 2 Urine WBC 530 06/28/17 07:20 WBC RBC Hct Plt Count Creatinine 1.9 H Ur Leukocyte Esterase Urine RBC Urine WBC ASSESSMENT Hydronephrosis kidney stones and UTI Plan Ceftriaxone pending c/s as ordered Katie MARIA Problem List - Problems (1) UTI (urinary tract infection), bacterial Code(s): N39.0 - URINARY TRACT INFECTION, SITE NOT SPECIFIED A49.9 - BACTERIAL INFECTION, UNSPECIFIED (2) Hydronephrosis Code(s): N13.30 - UNSPECIFIED HYDRONEPHROSIS
--- NOTE | 2017-06-28 11:05 | CONS ---
DATE OF CONSULTATION: DATE OF DICTATION: 06/28/2017 INFECTIOUS DISEASE CONSULTATION HISTORY OF PRESENT ILLNESS: This is an 87-year-old female whom I am asked to see for evaluation of a urinary tract infection, with fever and white count elevation. She came in because she apparently slid off her couch trying to get up, necessitating a call to EMS, which brought her unhurt to the hospital. She apparently felt very weak and on admission was found to have an elevated WBC count of 20,000, with fever and pyuria. She notes at least 1 prior episode of urinary tract infection, but this does not seem to be a recurrence, with a recurrent event with her. She is empirically placed on ceftriaxone and I am asked to see her, noting that she denies any urinary complaints. PAST MEDICAL HISTORY: Includes coronary artery disease, hypertension, hyperlipidemia, GERD, irritable bowel disease, osteoarthritis, hypothyroidism, appendectomy, cataract removal, hysterectomy. SOCIAL HISTORY: Never smoked. Lives with a family member at home who helps care for her. 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 MEDICATIONS: Aspirin, levothyroxine, Antivert, Benicar and tramadol. ALLERGIES: None known. FAMILY HISTORY: Reviewed and unremarkable. REVIEW OF SYSTEMS: All systems reviewed and negative. PHYSICAL EXAMINATION: General: She was an alert female in no acute distress. Vital Signs: T-max 101.7, currently 100.5. Pulse 96, blood pressure 124/60, respirations 18. Neck: Supple. Lungs: Clear to percussion and auscultation. Heart: S1, S2. Regular rhythm. No murmur. Abdomen: Soft, normoactive bowel sounds. No distention, tenderness, rebound, guarding. Extremities: No edema. DIAGNOSTIC STUDIES: White count initially 21,000, now 11.9; hemoglobin 9.2; platelets 265. INR 1.32. BUN 34, creatinine 2.1. Liver enzymes within normal limits. Urinalysis with 530 WBCs, 2 RBCs, 2+ leukocyte esterase. Renal sonogram obtained June 27 showed bilateral hydronephrosis, greater on the left, with non-obstructing right renal stones. ASSESSMENT: Urinary tract infection in the setting of bilateral hydronephrosis with kidney stones, white count coming down at this time. RECOMMENDATIONS: The patient has received ceftriaxone as per Dr. White, which we will continue pending final blood and urine cultures. Consideration of Urology consultation. A renal consultation has been requested. BRIAN JJ M.D. ROHIT/[id number]
--- NOTE | 2017-06-28 12:59 | CONSULT ---
Consult Consult Specialty:: Hematology Reason for Consultation:: anemia - History of Present Illness History of Present Illness: Patient admitted following period of failure to thrive, with gait instability etc, and found to be febrile, with likely urosepsis. Noted to have new normocytic anemia - Hb circa 9, that was not present 6 months ago. Patient report being in her usual state of health until relatively recently, when started experiencing generalized weakness, pain lower extremities, and poor appetite. No knowledge of prior hematological issues. Denies blood in stools, melena, PMVB, hematuria. 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 Cardio/Vascular: Yes: CAD, HTN, Hyperlipdemia, Other (LVH) Gastrointestinal: Yes: GERD, Hiatal Hernia, Irritable Bowel Disease Hepatobiliary: Yes: Other (gall bladder sludge) Heme/Onc: No: Anemia, B12 Deficiency, Bleeding Disorder Psych: Yes: Anxiety Musculoskeletal: Yes: Chronic low back pain, Osteoarthritis Endocrine: Yes: Hypothyroidism, Other (osteoporosis, vit d def) - Past Surgical History Past Surgical History: Yes: Appendectomy, Cataract Removal (bilateral), Hysterectomy (with BSO) - Alcohol/Substance Use Hx Alcohol Use: No - Smoking History Smoking history: Never smoked Have you smoked in the past 12 months: No Aproximately how many cigarettes per day: 0 - 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 Home Medications - Allergies Allergies/Adverse Reactions: Allergies Allergy/AdvReac Type Severity Reaction Status Date / Time No Known Allergies Allergy Verified 06/27/17 13:28 - Home Medications Home Medications: Ambulatory Orders Aspirin [ASA -] 81 mg PO DAILY #0 tab.chew 08/22/12 Levothyroxine [Synthroid -] 75 mcg PO DAILY #0 tablet 08/22/12 Meclizine HCl [Antivert -] 25 mg PO Q6H PRN #30 tablet 08/22/12 Olmesartan/Hydrochlorothiazide [Benicar Hct 40-25 mg Tablet] 1 each PO DAILY #0 tablet 08/22/12 Tramadol HCl 50 mg PO TID PRN #10 tablet MDD 3 10/14/16 Review of Systems - Review of Systems Constitutional: reports: Lethargy, Loss of Appetite, Weakness. denies: Unintentional Wgt. Loss Eyes: reports: No Symptoms HENT: reports: No Symptoms Neck: reports: No Symptoms Cardiovascular: reports: No Symptoms. denies: Palpitations, Shortness of Breath Respiratory: reports: SOB on Exertion. denies: Cough Gastrointestinal: reports: No Symptoms. denies: Abdominal Pain, Rectal Bleeding Neurological: reports: Unsteady Gait Endocrine: denies: Unexplained Weight Loss Hematology/Lymphatic: denies: Easily Bruised, Excessive Bleeding Psychiatric: reports: No Symptoms Physical Exam Vital Signs: Vital Signs Temperature 100.5 F H 06/28/17 09:52 Pulse Rate 96 H 06/28/17 09:52 Respiratory Rate 18 06/28/17 09:52 Blood Pressure 124/60 06/28/17 09:52 O2 Sat by Pulse Oximetry (%) 96 06/28/17 09:00 Constitutional: Yes: Well Nourished, No Distress, Calm Eyes: Yes: Conjunctiva Clear HENT: Yes: Atraumatic Neck: Yes: Supple, Trachea Midline. No: Lymphadenopathy Cardiovascular: Yes: Regular Rate and Rhythm, S1, S2. No: Murmur Respiratory: Yes: WNL, Regular, CTA Bilaterally. No: Rales, Stridor, Tachypnea Gastrointestinal: Yes: Normal Bowel Sounds, Abdomen, Obese. No: Splenomegaly, Tenderness ...Rectal Exam: Yes: Deferred Musculoskeletal: No: Joint Swelling Extremities: Yes: WNL Neurological: Yes: Alert, Oriented, Cran Nerves II-XII Intact. No: Confusion, Loss of Sensation ...Motor Strength: WNL Psychiatric: Yes: Alert, Oriented Labs: CBC, BMP 06/28/17 07:20 06/28/17 07:20 Assessment/Plan Mild normocytic anemia, in an elderly female presenting from home with recent acute onset ambulatory dysfunction / fall, likely attributable to sepsis ( febrile, leukocytosis) - now improved with initiation of abics/hydration. Mild drop in Hb from historical baseline difficult to evaluate in acute setting , but would agree with screening hematinics, reticulocyte count for now. Mild increase in creatinine also noted - but may be acute. Screening SPEP and serum free LCs fro completeness. Interesting to note that MCV significantly decreased compared to September 2016 ( when she was macrocytcic, without anemia), raising suggestion of interim development of of iron deficiency. Iron panel pending. Check serial stools for occult blood. Undiagosed breast lump - unlikely to be relevant to her anemia, but noted.
--- NOTE | 2017-06-28 13:47 | EKG ---
Test Reason : Blood Pressure : / mmHG Vent. Rate : 063 BPM Atrial Rate : 063 BPM P-R Int : 186 ms QRS Dur : 088 ms QT Int : 418 ms P-R-T Axes : 059 011 035 degrees QTc Int : 427 ms NORMAL SINUS RHYTHM POSSIBLE LEFT ATRIAL ENLARGEMENT SLOW R WAVE PROGRESSION IN V1-V3 ABNORMAL ECG WHEN COMPARED WITH ECG OF 10-DEC-2016 18:36, NO SIGNIFICANT CHANGE WAS FOUND REPEAT EKG IF CLINICALLY INDICATED Confirmed by SANDRO REILLY MD ([id number]) on 06/28/2017 1:46:48 PM Referred By: Confirmed By:SANDRO REILLY MD
--- NOTE | 2017-06-28 13:58 | CONSULT ---
Consult Consult Specialty:: Nephrology ( Drs. Santos/ Rohan) Referred by:: Dr. White Reason for Consultation:: Abnormal kidney functions - History of Present Illness Chief Complaint: Many thanks for this consult referral. Patient has a history of "arthritis" in knees and notes a few days ago she "slid" off her couch when she tried to get up. EMS was called and helped her up, but as she was unhurt she did not want to go to hospital. Later her daughter noted, however that now patient unable to walk and too weak. Patient denies any N/V or diarrhea, no coughing. In ED found to have WBC 20,000, anemic at hgb 9.4 and 500 WBC in urine, so started on treatment for UTI. Patient denies any blood per rectum. History of Present Illness: Her medical history is significant for Coronary artery disease, Hypertension, Hyperlipidemia, LVH, GERD, IBS, Chronic anxiety, Ch. LBP, Hypothyroidism. A sonogram done during this admission shows Bilateral Hydronephrosis and possible kidney stones. The patient has urinary incontinence. She had a Vaginal pessary , which was removed about 1 year ago because of her feeling uncomfortable. 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 Cardio/Vascular: Yes: CAD, HTN, Hyperlipdemia, Other (LVH) Gastrointestinal: Yes: GERD, Hiatal Hernia, Irritable Bowel Disease Hepatobiliary: Yes: Other (gall bladder sludge) Renal/: Yes: Neurogenic Bladder Heme/Onc: Yes: Anemia Psych: Yes: Anxiety Musculoskeletal: Yes: Chronic low back pain, Osteoarthritis Endocrine: Yes: Hypothyroidism, Other (osteoporosis, vit d def) - Past Surgical History Past Surgical History: Yes: Appendectomy, Cataract Removal (bilateral), Hysterectomy (with BSO) - Alcohol/Substance Use Hx Alcohol Use: No - Smoking History Smoking history: Never smoked Have you smoked in the past 12 months: No Aproximately how many cigarettes per day: 0 - 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 History 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 Home Medications - Allergies Allergies/Adverse Reactions: Allergies Allergy/AdvReac Type Severity Reaction Status Date / Time No Known Allergies Allergy Verified 06/27/17 13:28 - Home Medications Home Medications: Ambulatory Orders Aspirin [ASA -] 81 mg PO DAILY #0 tab.chew 08/22/12 Levothyroxine [Synthroid -] 75 mcg PO DAILY #0 tablet 08/22/12 Meclizine HCl [Antivert -] 25 mg PO Q6H PRN #30 tablet 08/22/12 Olmesartan/Hydrochlorothiazide [Benicar Hct 40-25 mg Tablet] 1 each PO DAILY #0 tablet 08/22/12 Tramadol HCl 50 mg PO TID PRN #10 tablet MDD 3 10/14/16 Review of Systems - Review of Systems Constitutional: reports: Malaise HENT: reports: No Symptoms Neck: reports: No Symptoms Cardiovascular: denies: Chest Pain, Palpitations, Shortness of Breath Respiratory: denies: Cough Gastrointestinal: reports: Abdominal Pain, Bloating Genitourinary: reports: Incontinence Musculoskeletal: reports: Back Pain Neurological: reports: Weakness Psychiatric: reports: Anxiety Physical Exam Vital Signs: Vital Signs Temperature 100.5 F H 06/28/17 09:52 Pulse Rate 96 H 06/28/17 09:52 Respiratory Rate 18 06/28/17 09:52 Blood Pressure 124/60 06/28/17 09:52 O2 Sat by Pulse Oximetry (%) 96 06/28/17 09:00 Constitutional: Yes: Anxious, Pallor Eyes: Yes: Conjunctiva Clear HENT: Yes: Normocephalic Neck: Yes: Trachea Midline Cardiovascular: Yes: Regular Rate and Rhythm, S1, S2 Respiratory: Yes: CTA Bilaterally, Diminished Gastrointestinal: Yes: Normal Bowel Sounds, Abdomen, Obese Renal/: No: CVA Tenderness - Left, CVA Tenderness - Right Musculoskeletal: Yes: Back Pain, Joint Stiffness Edema: No Neurological: Yes: Alert, Oriented Labs: CBC, BMP 06/28/17 07:20 06/28/17 07:20 Imaging - Results Chest X-ray: Pending X-ray: Pending Problem List - Problems (1) Accident due to mechanical fall without injury Code(s): W19.XXXA - UNSPECIFIED FALL, INITIAL ENCOUNTER Qualifiers: Encounter type: initial encounter Qualified Code(s): W19.XXXA - Unspecified fall, initial encounter (2) Acute kidney failure Code(s): N17.9 - ACUTE KIDNEY FAILURE, UNSPECIFIED Qualifiers: Acute renal failure type: unspecified Qualified Code(s): N17.9 - Acute kidney failure, unspecified (3) Anemia Code(s): D64.9 - ANEMIA, UNSPECIFIED (4) Elevated WBC count Code(s): D72.829 - ELEVATED WHITE BLOOD CELL COUNT, UNSPECIFIED (5) Hydronephrosis Code(s): N13.30 - UNSPECIFIED HYDRONEPHROSIS (6) Hypertension Code(s): I10 - ESSENTIAL (PRIMARY) HYPERTENSION (7) Hypothyroidism Code(s): E03.9 - HYPOTHYROIDISM, UNSPECIFIED (8) Osteoarthritis Code(s): M19.90 - UNSPECIFIED OSTEOARTHRITIS, UNSPECIFIED SITE (9) UTI (urinary tract infection), bacterial Code(s): N39.0 - URINARY TRACT INFECTION, SITE NOT SPECIFIED A49.9 - BACTERIAL INFECTION, UNSPECIFIED (10) Nephrolithiasis Code(s): N20.0 - CALCULUS OF KIDNEY Assessment/Plan 87 y/o female admitted with inability to ambulate after a trauma. Found to have a Urinary Tract Infection...and has been started on Antibiotics. Abnormal Kidney functions, with elevated BUN/ Cr. While there is definitely an Acute component to her renal dysfunction( Chronic Microvascular Renal disease), there is possibly a Chronic component to her renal disease as well. The patient has bilateral Hydronephrosis ( h/o pessary in the past) with evidence of stone disease. The patient seems to be unaware of any renal stones. ? eval. PLAN: Basic w/u as ordered. Will monitor the renal functions with you. IV Abx as ordered...ID Thank you. Will follow with you. Jayda Santos MD
[2017-06-28] MEDS: BACLOFEN 10 MG TABLET (FP) PO PRN (21:32)
[2017-06-28] MEDS: APPLE CIDER VINEGAR PO SCH (21:36)
[2017-06-28] MEDS ORDERED: APPLE CIDER VINEGAR PO SCH (22:00)
[2017-06-29] MEDS: BACLOFEN 10 MG TABLET (FP) PO PRN (06:03)
[2017-06-29] MEDS: LEVOTHYROXINE NA 75 MCG TABLET (FP) PO SCH (06:03)
[2017-06-29 06:06] LABS: SERUM IRON 7 ug/dL (27-139); TOTAL IRON BINDING CAPACITY 267 ug/dL (250-450); UIBC 260 ug/dL (118-369)
[2017-06-29 08:28] LABS: BASOPHIL 0.4 % (0-2.0); EOSINOPHIL 1.5 % (0-4.5); MCH 30.4 pg (25.7-33.7); MCHC 33.5 g/dl (32.0-36.0); MEAN CELL VOLUME 90.8 fl (80-96); MEAN PLT VOLUME 8.3 fl (7.5-11.1); NEUTROPHILS 76.2 % (42.8-82.8); PLATELET COUNT 248 K/MM3 (134-434); RDW 16.4 % (11.6-15.6); WHITE BLOOD COUNT 7.1 K/mm3 (4.0-10.0)
[2017-06-29 08:55] LABS: ALBUMIN 2.4 g/dl (3.4-5.0); ANION GAP 11 (8-16); CALCIUM 8.3 mg/dL (8.5-10.1); CO2 22 mmol/L (21-32); CREATININE 1.8 mg/dL (0.55-1.02); GLUCOSE,RANDOM 85 mg/dL (74-106); PHOSPHOROUS 2.8 mg/dL (2.5-4.9); SGOT/AST 17 U/L (15-37); SGPT/ALT 13 U/L (12-78)
[2017-06-29 08:57] LABS: ALK PHOS 62 U/L (45-117); BILIRUBIN,TOTAL 0.5 mg/dL (0.2-1.0); TOT PROT 5.4 g/dl (6.4-8.2)
--- NOTE | 2017-06-29 10:25 | PN ---
Progress Note (short form) - Note Progress Note: ID Ceftriaxone continues NO fevers T max 102 on admission Selected Entries 06/29/17 06:00 Temperature 99.1 F Pulse Rate 63 Respiratory 18 Rate Blood Pressure 140/64 Microbiology 06/28/17 01:30 Blood - Peripheral Venous Blood Culture - Preliminary NO GROWTH OBTAINED AFTER 24 HOURS, INCUBATION TO CONTINUE FOR 4 DAYS. 06/28/17 01:30 Blood - Peripheral Venous Blood Culture - Preliminary NO GROWTH OBTAINED AFTER 24 HOURS, INCUBATION TO CONTINUE FOR 4 DAYS. 06/27/17 14:02 Urine - Urine Clean Catch Urine Culture - Preliminary Lactose Fermenting Neg Bacilli Laboratory Tests 06/27/17 06/27/17 06/28/17 14:02 14:02 07:20 WBC 20.9 H D 11.9 H D RBC Hgb Plt Count Creat Clearance w eGFR Ur Leukocyte Esterase 2+ H Urine RBC 2 Urine WBC 530 06/29/17 06/29/17 07:25 07:25 WBC 7.1 D RBC 2.63 L Hgb 8.0 L D Plt Count 248 Creat Clearance w eGFR 26.55 Ur Leukocyte Esterase Urine RBC Urine WBC Assessment Gram negative urinary infection Plan Continue Ceftriaxone pendin c/s Urology margarita Wilson MD Problem List - Problems (1) UTI (urinary tract infection), bacterial Code(s): N39.0 - URINARY TRACT INFECTION, SITE NOT SPECIFIED A49.9 - BACTERIAL INFECTION, UNSPECIFIED (2) Hydronephrosis Code(s): N13.30 - UNSPECIFIED HYDRONEPHROSIS
--- NOTE | 2017-06-29 10:31 | PN ---
Progress Note (short form) - Note Progress Note: Renal Follow up for GILA vs. CKD Pt seen and examined at the bedside awake and alert denies any SOB, chest pain, abd pain Vital Signs Temperature 99.1 F 06/29/17 06:00 Pulse Rate 63 06/29/17 06:00 Respiratory Rate 18 06/29/17 06:00 Blood Pressure 140/64 06/29/17 06:00 O2 Sat by Pulse Oximetry (%) 95 06/28/17 21:00 Intake & Output 06/26/17 06/27/17 06/28/17 06/29/17 23:59 23:59 23:59 23:59 Intake Total 715 1905 Balance 715 1905 Weight 164 lb 8 oz gen: NAD, awake and alert CVS:RRR Lungs CTA (anterior) Abd: soft NT/ND, no bladder distension Ext: no edema CBC, BMP 06/29/17 07:25 06/29/17 07:25 Current Medications Acetaminophen (Tylenol -) 650 mg PO Q4H PRN PRN Reason: FEVER OR PAIN Last Admin: 06/27/17 22:14 Dose: 650 mg Amlodipine Besylate (Norvasc -) 5 mg PO DAILY [facility] Last Admin: 06/28/17 07:11 Dose: 5 mg Aspirin (Asa -) 81 mg PO DAILY [facility] Last Admin: 06/28/17 09:57 Dose: 81 mg Baclofen (Lioresal -) 10 mg PO TID PRN PRN Reason: MUSCLE SPASMS Last Admin: 06/29/17 06:03 Dose: 10 mg Heparin Sodium (Porcine) (Heparin -) 5,000 unit SQ BID [facility] Last Admin: 06/28/17 21:32 Dose: 5,000 unit Ceftriaxone Sodium 1 gm/ (Dextrose) 50 mls @ 100 mls/hr IVPB DAILY [facility] Last Admin: 06/28/17 09:57 Dose: 100 mls/hr Levothyroxine Sodium (Synthroid -) 75 mcg PO DAILY@0700 [facility] Last Admin: 06/29/17 06:03 Dose: 75 mcg Meclizine HCl (Antivert -) 25 mg PO Q6H PRN PRN Reason: DIZZINESS Ptnt's Own Med ( Apple Cider Vinegar 108 Mg) 108 mg PO BID [facility] Last Admin: 06/28/17 21:36 Dose: Not Given Tramadol HCl (Ultram -) 50 mg PO Q8H PRN PRN Reason: PAIN LEVEL 6-10 Last Admin: 06/28/17 18:58 Dose: 50 mg A/P 87 year old woman with PMhx of HTN, chronic back pain, chronic bilateral knee pain, prolapsed bladder and thyroid disease who presented with weakness and found to be febrile and with GILA with b/l hydronephrosis #Acute Kidney Injury with b/l hydronephrosis with some small kidney stones Renal function stable, unclear how much urine pt is producing will insert robbins catheter to r/o lower level urinary tract obstruction Urology consult continue to monitor renal function #Fever/Cystitis continue Ceftriaxone as per ID will plan to discontinue robbins in 24 hours if no significant improvement in renal function Thank you Al Madrigal DO
[2017-06-29] MEDS ORDERED: DEXTROSE 5%-WATER - 50 ML IVPB ONE (11:29)
[2017-06-29] MEDS ORDERED: cefTRIAXone SODIUM 1 GM VIAL ONE (11:29)
[2017-06-29] MEDS: HEPARIN NA (PORCINE) 5,000 UNITS/ML 1ML VIAL SQ SCH ×2 (11:30→22:13)
[2017-06-29] MEDS: APPLE CIDER VINEGAR PO SCH ×2 (11:31→22:13)
[2017-06-29] MEDS: CEFTRIAXONE 1 GM in DEXTROSE 5%-WATER - 50 ML IVPB SCH (11:31)
[2017-06-29] MEDS: amLODIPine BESYLATE 5 MG TABLET (FP) PO SCH (11:31)
[2017-06-29] MEDS: ASPIRIN 81 MG CHEWABLE TABLETS PO SCH (11:31)
--- NOTE | 2017-06-29 11:48 | PN ---
Progress Note, Physician History of Present Illness: Feeling better today with decreased back pain and leg pain - Current Medication List Current Medications: Active Medications Acetaminophen (Tylenol -) 650 mg PO Q4H PRN PRN Reason: FEVER OR PAIN Last Admin: 06/27/17 22:14 Dose: 650 mg Amlodipine Besylate (Norvasc -) 5 mg PO DAILY [facility] Last Admin: 06/29/17 11:31 Dose: 5 mg Aspirin (Asa -) 81 mg PO DAILY [facility] Last Admin: 06/29/17 11:31 Dose: 81 mg Baclofen (Lioresal -) 10 mg PO TID PRN PRN Reason: MUSCLE SPASMS Last Admin: 06/29/17 06:03 Dose: 10 mg Heparin Sodium (Porcine) (Heparin -) 5,000 unit SQ BID [facility] Last Admin: 06/29/17 11:30 Dose: 5,000 unit Ceftriaxone Sodium 1 gm/ (Dextrose) 50 mls @ 100 mls/hr IVPB DAILY [facility] Last Admin: 06/29/17 11:31 Dose: 100 mls/hr Levothyroxine Sodium (Synthroid -) 75 mcg PO DAILY@0700 [facility] Last Admin: 06/29/17 06:03 Dose: 75 mcg Meclizine HCl (Antivert -) 25 mg PO Q6H PRN PRN Reason: DIZZINESS Ptnt's Own Med ( Apple Cider Vinegar 108 Mg) 108 mg PO BID [facility] Last Admin: 06/29/17 11:31 Dose: 108 mg Tramadol HCl (Ultram -) 50 mg PO Q8H PRN PRN Reason: PAIN LEVEL 6-10 Last Admin: 06/28/17 18:58 Dose: 50 mg - Objective Vital Signs: Vital Signs Temperature 98.4 F 06/29/17 11:41 Pulse Rate 82 06/29/17 11:29 Respiratory Rate 20 06/29/17 11:29 Blood Pressure 143/70 06/29/17 11:29 O2 Sat by Pulse Oximetry (%) 95 06/28/17 21:00 Constitutional: Yes: No Distress, Calm Cardiovascular: Yes: Regular Rate and Rhythm, S1, S2. No: Murmur Respiratory: Yes: Regular, CTA Bilaterally. No: Rales, Rhonchi, Wheezes Gastrointestinal: Yes: Normal Bowel Sounds, Soft. No: Distention, Tenderness Edema: No Labs: CBC, BMP 06/29/17 07:25 06/29/17 07:25 INR, PTT INR 1.32 (0.82-1.09) H D 06/27/17 14:02 Problem List - Problems (1) UTI (urinary tract infection), bacterial Code(s): N39.0 - URINARY TRACT INFECTION, SITE NOT SPECIFIED A49.9 - BACTERIAL INFECTION, UNSPECIFIED (2) Acute kidney failure Code(s): N17.9 - ACUTE KIDNEY FAILURE, UNSPECIFIED Qualifiers: Acute renal failure type: unspecified Qualified Code(s): N17.9 - Acute kidney failure, unspecified (3) Elevated WBC count Code(s): D72.829 - ELEVATED WHITE BLOOD CELL COUNT, UNSPECIFIED (4) Anemia Code(s): D64.9 - ANEMIA, UNSPECIFIED (5) Osteoarthritis Code(s): M19.90 - UNSPECIFIED OSTEOARTHRITIS, UNSPECIFIED SITE (6) Hypothyroidism Code(s): E03.9 - HYPOTHYROIDISM, UNSPECIFIED (7) Hypertension Code(s): I10 - ESSENTIAL (PRIMARY) HYPERTENSION Assessment/Plan Current Active Problems Accident due to mechanical fall without injury (Acute) Acute kidney failure (Acute) Anemia (Acute) Elevated WBC count (Acute) Hypertension (Acute) Hypothyroidism (Acute) Osteoarthritis (Acute) UTI (urinary tract infection), bacterial (Acute) Bilateral Hydronephrosis -WBC improving on current abx -urology consult for hydronephrosis (to receive robbins catheter -anemia worsened, although no sign of active bleeding -is iron deficient -will start iron supplement (?need for GI eval for occult GI bleed)
[2017-06-29] MEDS: ASCORBIC ACID 500 MG TABLET (FP) PO SCH (22:13)
[2017-06-29] MEDS: FERROUS SO4 325 MG TABLET (FP) PO SCH (22:13)
[2017-06-30] MEDS: BACLOFEN 10 MG TABLET (FP) PO PRN (02:34)
[2017-06-30] MEDS: LEVOTHYROXINE NA 75 MCG TABLET (FP) PO SCH (06:11)
[2017-06-30 07:07] LABS: BASOPHIL 0.4 % (0-2.0); EOSINOPHIL 2.3 % (0-4.5); MCH 30.2 pg (25.7-33.7); MCHC 33.5 g/dl (32.0-36.0); MEAN CELL VOLUME 90.2 fl (80-96); MEAN PLT VOLUME 8.5 fl (7.5-11.1); NEUTROPHILS 70.5 % (42.8-82.8); PLATELET COUNT 257 K/MM3 (134-434); RDW 16.6 % (11.6-15.6); WHITE BLOOD COUNT 6.7 K/mm3 (4.0-10.0)
[2017-06-30 07:23] LABS: ANION GAP 11 (8-16); CALCIUM 8.4 mg/dL (8.5-10.1); CO2 22 mmol/L (21-32); CREATININE 1.7 mg/dL (0.55-1.02); GLUCOSE,RANDOM 91 mg/dL (74-106); MAGNESIUM 2.3 mg/dL (1.8-2.4); PHOSPHOROUS 2.9 mg/dL (2.5-4.9)
--- NOTE | 2017-06-30 10:31 | CON.GU ---
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 Cardio/Vascular: Yes: CAD, HTN, Hyperlipdemia, Other (LVH) Gastrointestinal: Yes: GERD, Hiatal Hernia, Irritable Bowel Disease Hepatobiliary: Yes: Other (gall bladder sludge) Renal/: Yes: Neurogenic Bladder Heme/Onc: Yes: Anemia Psych: Yes: Anxiety Musculoskeletal: Yes: Chronic low back pain, Osteoarthritis Endocrine: Yes: Hypothyroidism, Other (osteoporosis, vit d def) - Past Surgical History Past Surgical History: Yes: Appendectomy, Cataract Removal (bilateral), Hysterectomy (with BSO) - Alcohol/Substance Use Hx Alcohol Use: No - Smoking History Smoking history: Never smoked Have you smoked in the past 12 months: No Aproximately how many cigarettes per day: 0 - Social History 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 Home Medications - Allergies Allergies/Adverse Reactions: Allergies Allergy/AdvReac Type Severity Reaction Status Date / Time No Known Allergies Allergy Verified 06/27/17 13:28 - Home Medications Home Medications: Ambulatory Orders Aspirin [ASA -] 81 mg PO DAILY #0 tab.chew 08/22/12 Levothyroxine [Synthroid -] 75 mcg PO DAILY #0 tablet 08/22/12 Meclizine HCl [Antivert -] 25 mg PO Q6H PRN #30 tablet 08/22/12 Olmesartan/Hydrochlorothiazide [Benicar Hct 40-25 mg Tablet] 1 each PO DAILY #0 tablet 08/22/12 Tramadol HCl 50 mg PO TID PRN #10 tablet MDD 3 10/14/16 Physical Exam- Vital Signs: Vital Signs Temperature 98.9 F 06/30/17 06:00 Pulse Rate 61 06/30/17 06:00 Respiratory Rate 18 06/30/17 06:00 Blood Pressure 148/66 06/30/17 06:00 O2 Sat by Pulse Oximetry (%) 97 06/29/17 21:00 Respiratory: Yes: WNL Gastrointestinal: Yes: Normal Bowel Sounds Renal/: Yes: CVA Tenderness - Left (no cvat B/L), Beasley Present Labs: CBC, BMP 06/30/17 06:10 09/05/17 06:10 Imaging - Results Cat Scan: Report Reviewed Problem List - Problems (1) Hydronephrosis Assessment/Plan: 87 yo female w pylonepritis initially w WBC 20 now 6.7 Pt clinically w no signs of renal colic Small b/l calc noted on sonogram non obstructing Would order ncct scan of abd and pelvis to R/O ureteral calculus cr 1.7 stable Cont IV abx as per id Beasley to sd may give voiding trial when medically indicated and follow pvr Code(s): N13.30 - UNSPECIFIED HYDRONEPHROSIS
[2017-06-30] MEDS ORDERED: cefTRIAXone SODIUM 1 GM VIAL ONE (11:03)
[2017-06-30] MEDS ORDERED: DEXTROSE 5%-WATER - 50 ML IVPB ONE (11:04)
[2017-06-30] MEDS: amLODIPine BESYLATE 5 MG TABLET (FP) PO SCH (11:06)
[2017-06-30] MEDS: FERROUS SO4 325 MG TABLET (FP) PO SCH ×2 (11:06→22:58)
[2017-06-30] MEDS: ASPIRIN 81 MG CHEWABLE TABLETS PO SCH (11:06)
[2017-06-30] MEDS: ASCORBIC ACID 500 MG TABLET (FP) PO SCH ×2 (11:06→22:57)
[2017-06-30] MEDS: APPLE CIDER VINEGAR PO SCH ×2 (11:07→22:57)
[2017-06-30] MEDS: CEFTRIAXONE 1 GM in DEXTROSE 5%-WATER - 50 ML IVPB SCH (11:07)
[2017-06-30] MEDS: HEPARIN NA (PORCINE) 5,000 UNITS/ML 1ML VIAL SQ SCH ×2 (11:07→22:57)
--- NOTE | 2017-06-30 13:51 | PN ---
Progress Note (short form) - Note Progress Note: Renal Follow up for GILA vs. CKD Pt seen and examined at the bedside no acute complaints awake and alert but with slow speech has a flat affect robbins in place with good urine output Vital Signs Temperature 98 F 06/30/17 13:05 Pulse Rate 54 L 06/30/17 13:05 Respiratory Rate 19 06/30/17 13:05 Blood Pressure 150/53 06/30/17 13:05 O2 Sat by Pulse Oximetry (%) 97 06/29/17 21:00 Intake & Output 06/27/17 06/28/17 06/29/17 06/30/17 23:59 23:59 23:59 23:59 Intake Total 715 1905 940 180 Output Total 1150 1300 Balance 715 1905 -210 -1120 Weight 164 lb 8 oz gen: NAD, awake and alert CVS:RRR Lungs CTA (anterior) Abd: soft NT/ND, no bladder distension Ext: no edema CBC, BMP 06/30/17 06:10 06/30/17 06:10 Laboratory Tests 06/30/17 06:10 Calcium 8.4 L Phosphorus 2.9 Magnesium 2.3 Current Medications Acetaminophen (Tylenol -) 650 mg PO Q4H PRN PRN Reason: FEVER OR PAIN Last Admin: 06/27/17 22:14 Dose: 650 mg Amlodipine Besylate (Norvasc -) 5 mg PO DAILY [facility] Last Admin: 06/30/17 11:06 Dose: 5 mg Ascorbic Acid (Vitamin C -) 500 mg PO BID [facility] Last Admin: 06/30/17 11:06 Dose: 500 mg Aspirin (Asa -) 81 mg PO DAILY [facility] Last Admin: 06/30/17 11:06 Dose: 81 mg Baclofen (Lioresal -) 10 mg PO TID PRN PRN Reason: MUSCLE SPASMS Last Admin: 06/30/17 02:34 Dose: 10 mg Ferrous Sulfate (Feosol -) 325 mg PO BID [facility] Last Admin: 06/30/17 11:06 Dose: 325 mg Heparin Sodium (Porcine) (Heparin -) 5,000 unit SQ BID [facility] Last Admin: 06/30/17 11:07 Dose: 5,000 unit Ceftriaxone Sodium 1 gm/ (Dextrose) 50 mls @ 100 mls/hr IVPB DAILY [facility] Last Admin: 06/30/17 11:07 Dose: 100 mls/hr Levothyroxine Sodium (Synthroid -) 75 mcg PO DAILY@0700 [facility] Last Admin: 06/30/17 06:11 Dose: 75 mcg Meclizine HCl (Antivert -) 25 mg PO Q6H PRN PRN Reason: DIZZINESS Ptnt's Own Med ( Apple Cider Vinegar 108 Mg) 108 mg PO BID [facility] Last Admin: 06/30/17 11:07 Dose: 108 mg Tramadol HCl (Ultram -) 50 mg PO Q8H PRN PRN Reason: PAIN LEVEL 6-10 Last Admin: 06/28/17 18:58 Dose: 50 mg A/P 87 year old woman with PMhx of HTN, chronic back pain, chronic bilateral knee pain, prolapsed bladder and thyroid disease who presented with weakness and found to be febrile and with GILA with b/l hydronephrosis #Non-oliguric Acute Kidney Injury with b/l hydronephrosis with some small kidney stones No significant improvement in renal function seen by urology, for CT of the Abd today would maintain robbins for new pending CT scan Trend BUN/Cr Dose all meds for Cr Cl less then 30 avoid nsaids, iv contrast #Fever/Cystitis continue Ceftriaxone as per ID Thank you Al Madrigal DO
--- NOTE | 2017-06-30 14:58 | PN ---
Progress Note (short form) - Note Progress Note: flat affect Vital Signs Period Temp Pulse Resp BP Sys/[place] Pulse Ox Last 24 Hr 98 F-99.4 F 54-66 16-20 117-207/53-79 97 cor-rrr lungs clear abd soft,nt ext no edema +robbins CBC, BMP 06/30/17 06:10 06/30/17 06:10 Microbiology 06/28/17 01:30 Blood - Peripheral Venous Blood Culture - Preliminary NO GROWTH OBTAINED AFTER 48 HOURS, INCUBATION TO CONTINUE FOR 3 DAYS. 06/28/17 01:30 Blood - Peripheral Venous Blood Culture - Preliminary NO GROWTH OBTAINED AFTER 48 HOURS, INCUBATION TO CONTINUE FOR 3 DAYS. 06/27/17 14:02 Urine - Urine Clean Catch Urine Culture - Final Escherichia Coli Active Medications Acetaminophen (Tylenol -) 650 mg PO Q4H PRN PRN Reason: FEVER OR PAIN Last Admin: 06/27/17 22:14 Dose: 650 mg Amlodipine Besylate (Norvasc -) 5 mg PO DAILY [facility] Last Admin: 06/30/17 11:06 Dose: 5 mg Ascorbic Acid (Vitamin C -) 500 mg PO BID [facility] Last Admin: 06/30/17 11:06 Dose: 500 mg Aspirin (Asa -) 81 mg PO DAILY [facility] Last Admin: 06/30/17 11:06 Dose: 81 mg Baclofen (Lioresal -) 10 mg PO TID PRN PRN Reason: MUSCLE SPASMS Last Admin: 06/30/17 02:34 Dose: 10 mg Ferrous Sulfate (Feosol -) 325 mg PO BID [facility] Last Admin: 06/30/17 11:06 Dose: 325 mg Heparin Sodium (Porcine) (Heparin -) 5,000 unit SQ BID [facility] Last Admin: 06/30/17 11:07 Dose: 5,000 unit Ceftriaxone Sodium 1 gm/ (Dextrose) 50 mls @ 100 mls/hr IVPB DAILY [facility] Last Admin: 06/30/17 11:07 Dose: 100 mls/hr Levothyroxine Sodium (Synthroid -) 75 mcg PO DAILY@0700 [facility] Last Admin: 06/30/17 06:11 Dose: 75 mcg Meclizine HCl (Antivert -) 25 mg PO Q6H PRN PRN Reason: DIZZINESS Ptnt's Own Med ( Apple Cider Vinegar 108 Mg) 108 mg PO BID [facility] Last Admin: 06/30/17 11:07 Dose: 108 mg Tramadol HCl (Ultram -) 50 mg PO Q8H PRN PRN Reason: PAIN LEVEL 6-10 Last Admin: 06/28/17 18:58 Dose: 50 mg a/p ecoli uti- continue rocephin bilateral hydronephrosis- for ct scan per urology
[2017-06-30] MEDS ORDERED: amLODIPine BESYLATE 5 MG TABLET (FP) PO ONE (15:01)
--- NOTE | 2017-06-30 15:02 | PN ---
Progress Note, Physician Chief Complaint: Ms Richards says she "doesn't feel anything". Denies headache, dizziness, tinnitus, chest pain, shortness of breath, nausea/vomiting. She says that she feels like she is "going downhill". Says that she cannot move her hands or feet and that she has no feeling in them, however she moves them both spontaneously and also when stimulated by pain without difficulty. - Current Medication List Current Medications: Active Medications Acetaminophen (Tylenol -) 650 mg PO Q4H PRN PRN Reason: FEVER OR PAIN Last Admin: 06/27/17 22:14 Dose: 650 mg Amlodipine Besylate (Norvasc -) 10 mg PO DAILY [facility] Amlodipine Besylate (Norvasc -) 5 mg PO ONCE ONE Stop: 06/30/17 15:02 Ascorbic Acid (Vitamin C -) 500 mg PO BID [facility] Last Admin: 06/30/17 11:06 Dose: 500 mg Aspirin (Asa -) 81 mg PO DAILY [facility] Last Admin: 06/30/17 11:06 Dose: 81 mg Baclofen (Lioresal -) 10 mg PO TID PRN PRN Reason: MUSCLE SPASMS Last Admin: 06/30/17 02:34 Dose: 10 mg Ferrous Sulfate (Feosol -) 325 mg PO BID [facility] Last Admin: 06/30/17 11:06 Dose: 325 mg Heparin Sodium (Porcine) (Heparin -) 5,000 unit SQ BID [facility] Last Admin: 06/30/17 11:07 Dose: 5,000 unit Ceftriaxone Sodium 1 gm/ (Dextrose) 50 mls @ 100 mls/hr IVPB DAILY [facility] Last Admin: 06/30/17 11:07 Dose: 100 mls/hr Levothyroxine Sodium (Synthroid -) 75 mcg PO DAILY@0700 [facility] Last Admin: 06/30/17 06:11 Dose: 75 mcg Meclizine HCl (Antivert -) 25 mg PO Q6H PRN PRN Reason: DIZZINESS Ptnt's Own Med ( Apple Cider Vinegar 108 Mg) 108 mg PO BID [facility] Last Admin: 06/30/17 11:07 Dose: 108 mg Tramadol HCl (Ultram -) 50 mg PO Q8H PRN PRN Reason: PAIN LEVEL 6-10 Last Admin: 06/28/17 18:58 Dose: 50 mg - Objective Vital Signs: Vital Signs Temperature 36.8 C 06/30/17 14:40 Pulse Rate 60 06/30/17 14:41 Respiratory Rate 20 06/30/17 14:41 Blood Pressure 207/79 06/30/17 14:41 O2 Sat by Pulse Oximetry (%) 97 06/29/17 21:00 Constitutional: Yes: Well Nourished, No Distress, Calm, Other (flat affect) Cardiovascular: Yes: Regular Rate and Rhythm. No: Gallop, Murmur, Rub Respiratory: Yes: Regular, CTA Bilaterally. No: Rales, Rhonchi, Wheezes Gastrointestinal: Yes: Normal Bowel Sounds, Soft. No: Distention, Tenderness Extremities: Yes: WNL Edema: No Labs: CBC, BMP 06/30/17 06:10 06/30/17 06:10 INR, PTT INR 1.32 (0.82-1.09) H D 06/27/17 14:02 Problem List - Problems (1) UTI (urinary tract infection), bacterial Assessment/Plan: -patient with pansensitive e coli UTI -continue rocephin -leukocytosis resolved Code(s): N39.0 - URINARY TRACT INFECTION, SITE NOT SPECIFIED A49.9 - BACTERIAL INFECTION, UNSPECIFIED (2) Sepsis Assessment/Plan: -present on admission -resolved -continue rocephin Code(s): A41.9 - SEPSIS, UNSPECIFIED ORGANISM (3) Acute kidney failure Assessment/Plan: -appreciate nephrology assistance and note reviewed -not much improvement in renal function -holding all nephrotoxic agents -with hydronephrosis, urology following Code(s): N17.9 - ACUTE KIDNEY FAILURE, UNSPECIFIED Qualifiers: Acute renal failure type: unspecified Qualified Code(s): N17.9 - Acute kidney failure, unspecified (4) Hydronephrosis Assessment/Plan: -bilateral -urology note reviewed and appreciate assistance -abd/pelvis ct scan ordered Code(s): N13.30 - UNSPECIFIED HYDRONEPHROSIS (5) Nephrolithiasis Assessment/Plan: -non-obstructing nephrolithiasis seen on ultrasound -obtain CT scan as above for further investigation Code(s): N20.0 - CALCULUS OF KIDNEY (6) Anemia Assessment/Plan: -hematology consulted -labs c/w anemia of chronic disease with iron deficiency -currently stable -monitor, currently no need for transfusion -will consult GI for possible GI bleed -occult blood ordered but currently no recorded bowel movement, add stool softeners Code(s): D64.9 - ANEMIA, UNSPECIFIED Qualifiers: Anemia type: iron deficiency Iron deficiency anemia type: unspecified iron deficiency Qualified Code(s): D50.9 - Iron deficiency anemia, unspecified (7) Hypertension Assessment/Plan: -poorly controlled -because of ARF, both olmesartan and HCTZ are held -started on amlodipine -however now blood pressure quite elevated -will increase amlodipine to 10mg daily, give extra 5mg dose today -avoiding CARLOZ/ARBs/diuretics secondary to renal function -patient's HR 50-60s, consider beta blanca but will need to use sparingly as do not want to cause bradycardia -also avoid clonidine secondary to bradycardia -consider hydralazine, but patient with history of CAD -will d/w nephrology and see if responds to increase of amlodipine Code(s): I10 - ESSENTIAL (PRIMARY) HYPERTENSION (8) Hypothyroidism Assessment/Plan: -continue synthroid Code(s): E03.9 - HYPOTHYROIDISM, UNSPECIFIED (9) Accident due to mechanical fall without injury Assessment/Plan: -PT consult Code(s): W19.XXXA - UNSPECIFIED FALL, INITIAL ENCOUNTER Qualifiers: Encounter type: initial encounter Qualified Code(s): W19.XXXA - Unspecified fall, initial encounter
[2017-06-30] MEDS: ACETAMINOPHEN 325 MG TABLET (FP) PO PRN (15:28)
[2017-06-30] MEDS: POLYETHYLENE GLYCOL 3350 119 GM BTL PO SCH (22:50)
[2017-06-30] MEDS: traMADol HCL 50 MG TABLET PO PRN (22:58)
[2017-06-30] MEDS: DOCUSATE SODIUM 100 MG CAPSULE (FP) PO SCH (22:58)
[2017-07-01] MEDS: LEVOTHYROXINE NA 75 MCG TABLET (FP) PO SCH (06:17)
[2017-07-01 07:25] LABS: BASOPHIL 0.4 % (0-2.0); EOSINOPHIL 1.5 % (0-4.5); MCH 30.1 pg (25.7-33.7); MCHC 33.3 g/dl (32.0-36.0); MEAN CELL VOLUME 90.4 fl (80-96); PLATELET COUNT 286 K/MM3 (134-434); WHITE BLOOD COUNT 8.5 K/mm3 (4.0-10.0)
[2017-07-01 08:07] LABS: ANION GAP 11 (8-16); CALCIUM 8.4 mg/dL (8.5-10.1); CO2 22 mmol/L (21-32); CREATININE 1.4 mg/dL (0.55-1.02); GLUCOSE,RANDOM 87 mg/dL (74-106); MAGNESIUM 2.5 mg/dL (1.8-2.4); PHOSPHOROUS 2.7 mg/dL (2.5-4.9)
--- NOTE | 2017-07-01 09:35 | CON.GI ---
Consult Consult Specialty:: GI: For Dr. Medina Referred by:: Dr. Simpson Reason for Consultation:: Anemia - History of Present Illness Chief Complaint: Patient was not sure why she was brought to hospital History of Present Illness: 87F admitted through [facility] ER 06/28 for evaluation of weakness. This history was obtained from the chart as the patient was unclear as to why she was in the hospital. She complains of being "unable to have a bowel movement of late" and has been eating less. She denies rectal bleeding, dark bowel movements, abdominal pain. She is being evaluated by urology, had robbins placed and is being treated for UTI. Hematology also evaluated her and raised the question of some component of iron deficiency ad her MCV has decreased and serum iron was low. Ms. Rincon is unsure if she has ever had an EGD or colonoscopy. There is no family history of colorectal cancer. - History Source History Provided By: Patient, Medical Record Limitations to Obtaining History: Poor Historian - Past Medical History [employer]: Yes: Vertigo Cardio/Vascular: Yes: CAD, HTN, Hyperlipdemia, Other (LVH) Gastrointestinal: Yes: GERD, Hiatal Hernia, Irritable Bowel Disease Hepatobiliary: Yes: Other (gall bladder sludge) Renal/: Yes: Neurogenic Bladder Psych: Yes: Anxiety Musculoskeletal: Yes: Chronic low back pain, Osteoarthritis Endocrine: Yes: Hypothyroidism, Other (osteoporosis, vit d def) - Past Surgical History Past Surgical History: Yes: Appendectomy, Cataract Removal (bilateral), Hysterectomy (with BSO) - Alcohol/Substance Use Hx Alcohol Use: No - Smoking History Smoking history: Never smoked Have you smoked in the past 12 months: No Aproximately how many cigarettes per day: 0 - 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 History 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 Home Medications - Allergies Allergies/Adverse Reactions: Allergies Allergy/AdvReac Type Severity Reaction Status Date / Time No Known Allergies Allergy Verified 06/27/17 13:28 - Home Medications Home Medications: Ambulatory Orders Aspirin [ASA -] 81 mg PO DAILY #0 tab.chew 08/22/12 Levothyroxine [Synthroid -] 75 mcg PO DAILY #0 tablet 08/22/12 Meclizine HCl [Antivert -] 25 mg PO Q6H PRN #30 tablet 08/22/12 Olmesartan/Hydrochlorothiazide [Benicar Hct 40-25 mg Tablet] 1 each PO DAILY #0 tablet 08/22/12 Tramadol HCl 50 mg PO TID PRN #10 tablet MDD 3 10/14/16 Family Disease History - Family Disease History Family Disease History: Other: Father ( 80's: unclear cause), Mother ( 49: unclear cause. ? liver problem), Son (2, 1 with parkinson's disease), Daughter (2, healthy) Other Family History: No family history of colorectal cancer or other GI malignancy Review of Systems - Review of Systems Constitutional: denies: Chills Cardiovascular: denies: Chest Pain, Shortness of Breath Gastrointestinal: reports: Constipation. denies: Abdominal Pain, Diarrhea, Dysphagia, Melena, Rectal Bleeding, Vomiting Musculoskeletal: reports: Joint Pain Physical Exam-GI Vital Signs: Vital Signs Temperature 99.8 F H 07/01/17 06:00 Pulse Rate 73 07/01/17 06:00 Respiratory Rate 20 07/01/17 06:00 Blood Pressure 152/63 07/01/17 06:00 O2 Sat by Pulse Oximetry (%) 98 06/30/17 21:00 Constitutional: Yes: Calm Eyes: No: Sclera Icterus Cardiovascular: Yes: Regular Rate and Rhythm. No: Murmur Respiratory: Yes: CTA Bilaterally Gastrointestinal Inspection: Yes: Scars (pelvic scar and ruq scar). No: Distention ...Auscultate: Yes: Normoactive Bowel Sounds ...Palpate: No: Hepatomegaly, Splenomegaly, Tenderness ...Percussion: No: Tympanitic ...Rectal Exam: Yes: Guaiac Negative (formed light brown stool in rectal vault, no masses, no external lesions) Edema: No Neurological: Yes: Alert. No: Oriented (to person,place and partially to time) Labs: CBC, BMP 07/01/17 06:15 07/01/17 06:15 INR, PTT INR 1.32 (0.82-1.09) H D 06/27/17 14:02 Problem List - Problems (1) Anemia Assessment/Plan: No overt bleeding and guaiac negative on my exam Discussed the finding of anemia with Ms. Rincon. We discussed both EGD and colonoscopy to evaluate for GI sources of blood loss / iron deficiency such as colon polyps, bleeding blood vessels and maligfnancies of the GI tract such as colon cancer. We discussed potential risks of the procedures like but not limited to bleeding, perforation requiring surgery to repair, infection, sedation medication effects all of which could be potentially life threatening. She did not consent to the procedures. I asked that she think about these options and speak with her daughter as well. I also called her daughter at Ms. Rincon's request to discuss things further as well and left my office number to call back Please recall if patient and family amenable to procedures Code(s): D64.9 - ANEMIA, UNSPECIFIED Qualifiers: Anemia type: iron deficiency Iron deficiency anemia type: unspecified iron deficiency Qualified Code(s): D50.9 - Iron deficiency anemia, unspecified
[2017-07-01] MEDS ORDERED: cefTRIAXone SODIUM 1 GM VIAL ONE (10:54)
[2017-07-01] MEDS ORDERED: DEXTROSE 5%-WATER - 50 ML IVPB ONE (10:55)
[2017-07-01] MEDS: DOCUSATE SODIUM 100 MG CAPSULE (FP) PO SCH ×2 (11:02→21:14)
[2017-07-01] MEDS: APPLE CIDER VINEGAR PO SCH ×2 (11:12→21:13)
[2017-07-01] MEDS: ASPIRIN 81 MG CHEWABLE TABLETS PO SCH (11:12)
[2017-07-01] MEDS: FERROUS SO4 325 MG TABLET (FP) PO SCH ×2 (11:13→21:14)
[2017-07-01] MEDS: HEPARIN NA (PORCINE) 5,000 UNITS/ML 1ML VIAL SQ SCH ×2 (11:13→21:29)
[2017-07-01] MEDS: amLODIPine BESYLATE 5 MG TABLET (FP) PO SCH (11:14)
--- NOTE | 2017-07-01 11:14 | PN ---
Progress Note, Physician Chief Complaint: Ms Susie fragoso says she doesn't feel anything, but this morning clarifies that she is not having pain and that she feels fine. No cp, sob, n/v. - Current Medication List Current Medications: Active Medications Acetaminophen (Tylenol -) 650 mg PO Q4H PRN PRN Reason: FEVER OR PAIN Last Admin: 06/30/17 15:28 Dose: 650 mg Amlodipine Besylate (Norvasc -) 10 mg PO DAILY [facility] Ascorbic Acid (Vitamin C -) 500 mg PO BID [facility] Last Admin: 06/30/17 22:57 Dose: 500 mg Aspirin (Asa -) 81 mg PO DAILY [facility] Last Admin: 06/30/17 11:06 Dose: 81 mg Docusate Sodium (Colace -) 100 mg PO BID [facility] Last Admin: 07/01/17 11:02 Dose: 100 mg Ferrous Sulfate (Feosol -) 325 mg PO BID [facility] Last Admin: 06/30/17 22:58 Dose: 325 mg Heparin Sodium (Porcine) (Heparin -) 5,000 unit SQ BID [facility] Last Admin: 06/30/17 22:57 Dose: 5,000 unit Ceftriaxone Sodium 1 gm/ (Dextrose) 50 mls @ 100 mls/hr IVPB DAILY [facility] Last Admin: 06/30/17 11:07 Dose: 100 mls/hr Levothyroxine Sodium (Synthroid -) 75 mcg PO DAILY@0700 [facility] Last Admin: 07/01/17 06:17 Dose: 75 mcg Meclizine HCl (Antivert -) 25 mg PO Q6H PRN PRN Reason: DIZZINESS Ptnt's Own Med ( Apple Cider Vinegar 108 Mg) 108 mg PO BID [facility] Last Admin: 06/30/17 22:57 Dose: 108 mg Polyethylene Glycol (Miralax (For Daily Use) -) 17 gm PO BID [facility] Last Admin: 06/30/17 22:50 Dose: 17 grams Tramadol HCl (Ultram -) 50 mg PO Q8H PRN PRN Reason: PAIN LEVEL 6-10 Last Admin: 06/30/17 22:58 Dose: 50 mg - Objective Vital Signs: Vital Signs Temperature 37.7 C H 07/01/17 06:00 Pulse Rate 73 07/01/17 06:00 Respiratory Rate 20 07/01/17 06:00 Blood Pressure 152/63 07/01/17 06:00 O2 Sat by Pulse Oximetry (%) 98 06/30/17 21:00 Constitutional: Yes: No Distress, Calm, Obese Cardiovascular: Yes: Regular Rate and Rhythm. No: Gallop, Murmur, Rub Respiratory: Yes: Regular, CTA Bilaterally. No: Rales, Rhonchi, Wheezes Gastrointestinal: Yes: Normal Bowel Sounds, Soft. No: Distention, Tenderness Extremities: Yes: WNL Edema: No Labs: CBC, BMP 07/01/17 06:15 07/01/17 06:15 INR, PTT INR 1.32 (0.82-1.09) H D 06/27/17 14:02 Problem List - Problems (1) UTI (urinary tract infection), bacterial Code(s): N39.0 - URINARY TRACT INFECTION, SITE NOT SPECIFIED A49.9 - BACTERIAL INFECTION, UNSPECIFIED (2) Sepsis Code(s): A41.9 - SEPSIS, UNSPECIFIED ORGANISM (3) Acute kidney failure Code(s): N17.9 - ACUTE KIDNEY FAILURE, UNSPECIFIED Qualifiers: Qualified Code(s): N17.9 - Acute kidney failure, unspecified (4) Hydronephrosis Code(s): N13.30 - UNSPECIFIED HYDRONEPHROSIS (5) Nephrolithiasis Code(s): N20.0 - CALCULUS OF KIDNEY (6) Anemia Code(s): D64.9 - ANEMIA, UNSPECIFIED Qualifiers: Qualified Code(s): D50.9 - Iron deficiency anemia, unspecified (7) Hypertension Code(s): I10 - ESSENTIAL (PRIMARY) HYPERTENSION (8) Hypothyroidism Code(s): E03.9 - HYPOTHYROIDISM, UNSPECIFIED (9) Accident due to mechanical fall without injury Code(s): W19.XXXA - UNSPECIFIED FALL, INITIAL ENCOUNTER Qualifiers: Qualified Code(s): W19.XXXA - Unspecified fall, initial encounter Assessment/Plan (1) UTI (urinary tract infection), bacterial Assessment/Plan: -patient with pansensitive e coli UTI -continue rocephin day 4/5 Code(s): N39.0 - URINARY TRACT INFECTION, SITE NOT SPECIFIED A49.9 - BACTERIAL INFECTION, UNSPECIFIED (2) Sepsis Assessment/Plan: -present on admission -resolved -continue rocephin Code(s): A41.9 - SEPSIS, UNSPECIFIED ORGANISM (3) Acute kidney failure Assessment/Plan: -CT scan reviewed, no hydronephrosis noted -? secondary to urinary retention in the bladder -renal function improving -nephrology following -still holding HCT and olmesartan Code(s): N17.9 - ACUTE KIDNEY FAILURE, UNSPECIFIED Qualifiers: Acute renal failure type: unspecified Qualified Code(s): N17.9 - Acute kidney failure, unspecified (4) Hydronephrosis Assessment/Plan: -resolved on CT scan -urology following Code(s): N13.30 - UNSPECIFIED HYDRONEPHROSIS (5) Nephrolithiasis Assessment/Plan: -not seen on CT scan Code(s): N20.0 - CALCULUS OF KIDNEY (6) Anemia Assessment/Plan: -hematology and GI consulted -patient declines GI interventions at this time -H/H stable, monitor Code(s): D64.9 - ANEMIA, UNSPECIFIED Qualifiers: Anemia type: iron deficiency Iron deficiency anemia type: unspecified iron deficiency Qualified Code(s): D50.9 - Iron deficiency anemia, unspecified (7) Hypertension Assessment/Plan: -improved on increased amlodipine -continue amlodipine 10mg daily -will await nephrology recommendations about restarting olmesartan and HCTZ Code(s): I10 - ESSENTIAL (PRIMARY) HYPERTENSION (8) Hypothyroidism Assessment/Plan: -continue synthroid Code(s): E03.9 - HYPOTHYROIDISM, UNSPECIFIED (9) Accident due to mechanical fall without injury Assessment/Plan: -PT consulted Code(s): W19.XXXA - UNSPECIFIED FALL, INITIAL ENCOUNTER Qualifiers: Encounter type: initial encounter Qualified Code(s): W19.XXXA - Unspecified fall, initial encounter
[2017-07-01] MEDS: CEFTRIAXONE 1 GM in DEXTROSE 5%-WATER - 50 ML IVPB SCH (11:15)
--- NOTE | 2017-07-01 11:15 | PN ---
Progress Note (short form) - Note Progress Note: much more animated today feels well Vital Signs Period Temp Pulse Resp BP Sys/[place] Pulse Ox Last 24 Hr 97.9 F-99.8 F 54-73 17-20 149-207/50-94 98 cor-rrr lungs clear abd soft,nt ext no edema robbins CBC, BMP 07/01/17 06:15 07/01/17 06:15 Microbiology 06/28/17 01:30 Blood - Peripheral Venous Blood Culture - Preliminary NO GROWTH OBTAINED AFTER 72 HOURS, INCUBATION TO CONTINUE FOR 2 DAYS. 06/28/17 01:30 Blood - Peripheral Venous Blood Culture - Preliminary NO GROWTH OBTAINED AFTER 72 HOURS, INCUBATION TO CONTINUE FOR 2 DAYS. 06/27/17 14:02 Urine - Urine Clean Catch Urine Culture - Final Escherichia Coli a/p ecoli uti- continue rocephin day #4 bilateral hydronephrosis- resolved on ct scan sobia resolving can switch to po keflex bid when ready for discharge please call back if needed
[2017-07-01] MEDS: ASCORBIC ACID 500 MG TABLET (FP) PO SCH ×2 (11:16→21:14)
[2017-07-01] MEDS: POLYETHYLENE GLYCOL 3350 119 GM BTL PO SCH ×2 (12:51→21:14)
--- NOTE | 2017-07-01 14:05 | PN ---
Progress Note (short form) - Note Progress Note: Called Ms. Richards's daughter Sara. She spoke with her mother. Both agreeable for procedures. Plan for EGD/Colon 07/02/17 Problem List - Problems (1) Anemia Code(s): D64.9 - ANEMIA, UNSPECIFIED Qualifiers: Anemia type: iron deficiency Iron deficiency anemia type: unspecified iron deficiency Qualified Code(s): D50.9 - Iron deficiency anemia, unspecified
[2017-07-01 14:14] LABS: A/G RATIO 0.9 (0.7-1.7); ALBUMIN 2.4 g/dL (2.9-4.4); CALCIUM 8.3 mg/dL (8.7-10.3); GLOBULIN, TOTAL 2.8 g/dL (2.2-3.9); M-SPIKE Not Observed g/dL (Not Observed); TOTAL PROTEIN 5.2 g/dL (6.0-8.5)
--- NOTE | 2017-07-01 14:35 | PN ---
Progress Note (short form) - Note Progress Note: Renal Follow up for GILA vs. CKD Pt seen and examined at the bedside more awake and alert today reports intermittent abd pain no sob, chest pain Robbins in place Vital Signs Temperature 97.9 F 07/01/17 13:58 Pulse Rate 73 07/01/17 13:58 Respiratory Rate 18 07/01/17 13:58 Blood Pressure 159/57 07/01/17 13:58 O2 Sat by Pulse Oximetry (%) 96 07/01/17 09:00 Intake & Output 06/28/17 06/29/17 06/30/17 07/01/17 23:59 23:59 23:59 23:59 Intake Total 1905 940 50 850 Output Total 1150 2300 625 Balance 1905 -210 -2250 225 gen: NAD, awake and alert CVS:RRR Lungs CTA (anterior) Abd: soft NT/ND, no bladder distension Ext: no edema CBC, BMP 07/01/17 06:15 07/01/17 06:15 Laboratory Tests 07/01/17 06:15 Calcium 8.4 L Phosphorus 2.7 Magnesium 2.5 H Current Medications Acetaminophen (Tylenol -) 650 mg PO Q4H PRN PRN Reason: FEVER OR PAIN Last Admin: 06/30/17 15:28 Dose: 650 mg Amlodipine Besylate (Norvasc -) 10 mg PO DAILY [facility] Last Admin: 07/01/17 11:14 Dose: 10 mg Ascorbic Acid (Vitamin C -) 500 mg PO BID [facility] Last Admin: 07/01/17 11:16 Dose: 500 mg Aspirin (Asa -) 81 mg PO DAILY [facility] Last Admin: 07/01/17 11:12 Dose: 81 mg Bisacodyl (Dulcolax -) 20 mg PO ONCE ONE Stop: 07/02/17 15:01 Docusate Sodium (Colace -) 100 mg PO BID [facility] Last Admin: 07/01/17 11:02 Dose: 100 mg Ferrous Sulfate (Feosol -) 325 mg PO BID [facility] Last Admin: 07/01/17 11:13 Dose: 325 mg Heparin Sodium (Porcine) (Heparin -) 5,000 unit SQ BID [facility] Last Admin: 07/01/17 11:13 Dose: 5,000 unit Ceftriaxone Sodium 1 gm/ (Dextrose) 50 mls @ 100 mls/hr IVPB DAILY [facility] Last Admin: 07/01/17 11:15 Dose: 100 mls/hr Levothyroxine Sodium (Synthroid -) 75 mcg PO DAILY@0700 [facility] Last Admin: 07/01/17 06:17 Dose: 75 mcg Meclizine HCl (Antivert -) 25 mg PO Q6H PRN PRN Reason: DIZZINESS Ptnt's Own Med ( Apple Cider Vinegar 108 Mg) 108 mg PO BID [facility] Last Admin: 07/01/17 11:12 Dose: 108 mg Polyethylene Glycol (Miralax (For Daily Use) -) 17 gm PO BID [facility] Last Admin: 07/01/17 12:51 Dose: 17 grams Polyethylene Glycol (Miralax (For Bowel Prep) -) 255 gm PO ONCE ONE Stop: 07/02/17 16:01 Tramadol HCl (Ultram -) 50 mg PO Q8H PRN PRN Reason: PAIN LEVEL 6-10 Last Admin: 06/30/17 22:58 Dose: 50 mg A/P 87 year old woman with PMhx of HTN, chronic back pain, chronic bilateral knee pain, prolapsed bladder and thyroid disease who presented with weakness and found to be febrile and with GILA with b/l hydronephrosis #Non-oliguric Acute Kidney Injury with b/l hydronephrosis with some small kidney stones CT of the abd showed no hydro - possible resolution with Robbins? will d/c robbins today and do a trial of void renal function improving off IVF Trend BUN/Cr #Fever/Cystitis continue Ceftriaxone as per ID Thank you Al Madrigal DO
[2017-07-01] MEDS: traMADol HCL 50 MG TABLET PO PRN (23:46)
[2017-07-02] MEDS: LEVOTHYROXINE NA 75 MCG TABLET (FP) PO SCH (06:15)
[2017-07-02 08:06] LABS: MCH 30.1 pg (25.7-33.7); MCHC 33.6 g/dl (32.0-36.0); MEAN CELL VOLUME 89.7 fl (80-96); MEAN PLT VOLUME 7.8 fl (7.5-11.1); PLATELET COUNT 345 K/MM3 (134-434); RDW 16.9 % (11.6-15.6); WHITE BLOOD COUNT 9.3 K/mm3 (4.0-10.0)
[2017-07-02 08:44] LABS: ANION GAP 15 (8-16); CALCIUM 8.9 mg/dL (8.5-10.1); CO2 20 mmol/L (21-32); CREATININE 1.6 mg/dL (0.55-1.02); GLUCOSE,RANDOM 111 mg/dL (74-106); MAGNESIUM 2.3 mg/dL (1.8-2.4); PHOSPHOROUS 3.2 mg/dL (2.5-4.9)
[2017-07-02] MEDS ORDERED: DEXTROSE 5%-WATER - 50 ML IVPB ONE (09:32)
[2017-07-02] MEDS ORDERED: cefTRIAXone SODIUM 1 GM VIAL ONE (09:32)
[2017-07-02] MEDS: APPLE CIDER VINEGAR PO SCH ×2 (09:39→22:45)
[2017-07-02] MEDS: DOCUSATE SODIUM 100 MG CAPSULE (FP) PO SCH ×2 (09:40→22:45)
[2017-07-02] MEDS: FERROUS SO4 325 MG TABLET (FP) PO SCH ×2 (09:40→22:46)
[2017-07-02] MEDS: amLODIPine BESYLATE 5 MG TABLET (FP) PO SCH (09:40)
[2017-07-02] MEDS: POLYETHYLENE GLYCOL 3350 119 GM BTL PO SCH ×2 (09:40→22:56)
[2017-07-02] MEDS: ASCORBIC ACID 500 MG TABLET (FP) PO SCH ×2 (09:40→22:46)
[2017-07-02] MEDS: CEFTRIAXONE 1 GM in DEXTROSE 5%-WATER - 50 ML IVPB SCH (09:41)
[2017-07-02 09:43] LABS: PLATELET ESTIMATE ADEQUATE (NORMAL); TOTAL CELLS COUNTED 100
[2017-07-02 09:44] LABS: METAMYELOCYTE 2 % (0-2); REACTIVE LYMPHOCYTES 1 % (0-80)
[2017-07-02] MEDS: HEPARIN NA (PORCINE) 5,000 UNITS/ML 1ML VIAL SQ SCH ×2 (09:50→22:57)
[2017-07-02] MEDS: ASPIRIN 81 MG CHEWABLE TABLETS PO SCH (09:50)
--- NOTE | 2017-07-02 12:19 | PN ---
Progress Note (short form) - Note Progress Note: Consent obtained for EGD/Colon from Ms. Richards. Ms. Richards's daughter was aware per yesterday's conversation. I asked Ms. Richards's nurse to make the consent available to Ms. Richards's daughter to sign when she comes to visit today. She will also need to sign for anesthesia consent Problem List - Problems (1) Anemia Code(s): D64.9 - ANEMIA, UNSPECIFIED Qualifiers: Anemia type: iron deficiency Iron deficiency anemia type: unspecified iron deficiency Qualified Code(s): D50.9 - Iron deficiency anemia, unspecified
[2017-07-02] MEDS ORDERED: BISACODYL 5 MG TABLET.DR (FP) PO ONE (15:00)
--- NOTE | 2017-07-02 15:12 | PN ---
Progress Note, Physician Chief Complaint: Ms Richards says she is feeling well today. No cp, sob, n/v. - Current Medication List Current Medications: Active Medications Acetaminophen (Tylenol -) 650 mg PO Q4H PRN PRN Reason: FEVER OR PAIN Last Admin: 06/30/17 15:28 Dose: 650 mg Amlodipine Besylate (Norvasc -) 10 mg PO DAILY [facility] Last Admin: 07/02/17 09:40 Dose: 10 mg Ascorbic Acid (Vitamin C -) 500 mg PO BID [facility] Last Admin: 07/02/17 09:40 Dose: 500 mg Aspirin (Asa -) 81 mg PO DAILY [facility] Last Admin: 07/02/17 09:50 Dose: 81 mg Docusate Sodium (Colace -) 100 mg PO BID [facility] Last Admin: 07/02/17 09:40 Dose: 100 mg Ferrous Sulfate (Feosol -) 325 mg PO BID [facility] Last Admin: 07/02/17 09:40 Dose: 325 mg Heparin Sodium (Porcine) (Heparin -) 5,000 unit SQ BID [facility] Last Admin: 07/02/17 09:50 Dose: 5,000 unit Ceftriaxone Sodium 1 gm/ (Dextrose) 50 mls @ 100 mls/hr IVPB DAILY [facility] Last Admin: 07/02/17 09:41 Dose: 100 mls/hr Levothyroxine Sodium (Synthroid -) 75 mcg PO DAILY@0700 [facility] Last Admin: 07/02/17 06:15 Dose: 75 mcg Meclizine HCl (Antivert -) 25 mg PO Q6H PRN PRN Reason: DIZZINESS Ptnt's Own Med ( Apple Cider Vinegar 108 Mg) 108 mg PO BID [facility] Last Admin: 07/02/17 09:39 Dose: 108 mg Polyethylene Glycol (Miralax (For Daily Use) -) 17 gm PO BID [facility] Last Admin: 07/02/17 09:40 Dose: 17 grams Polyethylene Glycol (Miralax (For Bowel Prep) -) 255 gm PO ONCE ONE Stop: 07/02/17 16:01 Tramadol HCl (Ultram -) 50 mg PO Q8H PRN PRN Reason: PAIN LEVEL 6-10 Last Admin: 07/01/17 23:46 Dose: 50 mg - Objective Vital Signs: Vital Signs Temperature 37.2 C 07/02/17 14:08 Pulse Rate 77 07/02/17 14:08 Respiratory Rate 20 07/02/17 14:08 Blood Pressure 143/68 07/02/17 14:08 O2 Sat by Pulse Oximetry (%) 98 07/02/17 09:00 Constitutional: Yes: Well Nourished, No Distress, Calm Cardiovascular: Yes: Regular Rate and Rhythm. No: Gallop, Murmur, Rub Respiratory: Yes: Regular, CTA Bilaterally. No: Rales, Rhonchi, Wheezes Gastrointestinal: Yes: Normal Bowel Sounds, Soft. No: Distention, Tenderness Extremities: Yes: WNL Edema: No Labs: CBC, BMP 07/02/17 07:00 07/02/17 07:00 INR, PTT INR 1.32 (0.82-1.09) H D 06/27/17 14:02 Problem List - Problems (1) UTI (urinary tract infection), bacterial Code(s): N39.0 - URINARY TRACT INFECTION, SITE NOT SPECIFIED A49.9 - BACTERIAL INFECTION, UNSPECIFIED (2) Sepsis Code(s): A41.9 - SEPSIS, UNSPECIFIED ORGANISM (3) Acute kidney failure Code(s): N17.9 - ACUTE KIDNEY FAILURE, UNSPECIFIED Qualifiers: Acute renal failure type: unspecified Qualified Code(s): N17.9 - Acute kidney failure, unspecified (4) Hydronephrosis Code(s): N13.30 - UNSPECIFIED HYDRONEPHROSIS (5) Nephrolithiasis Code(s): N20.0 - CALCULUS OF KIDNEY (6) Anemia Code(s): D64.9 - ANEMIA, UNSPECIFIED Qualifiers: Anemia type: iron deficiency Iron deficiency anemia type: unspecified iron deficiency Qualified Code(s): D50.9 - Iron deficiency anemia, unspecified (7) Hypertension Code(s): I10 - ESSENTIAL (PRIMARY) HYPERTENSION (8) Hypothyroidism Code(s): E03.9 - HYPOTHYROIDISM, UNSPECIFIED (9) Accident due to mechanical fall without injury Code(s): W19.XXXA - UNSPECIFIED FALL, INITIAL ENCOUNTER Qualifiers: Encounter type: initial encounter Qualified Code(s): W19.XXXA - Unspecified fall, initial encounter Assessment/Plan (1) UTI (urinary tract infection), bacterial Assessment/Plan: -patient with pansensitive e coli UTI -continue rocephin day 5 -ID following Code(s): N39.0 - URINARY TRACT INFECTION, SITE NOT SPECIFIED A49.9 - BACTERIAL INFECTION, UNSPECIFIED (2) Sepsis Assessment/Plan: -present on admission -resolved -continue rocephin Code(s): A41.9 - SEPSIS, UNSPECIFIED ORGANISM (3) Acute kidney failure Assessment/Plan: -creatinine stable -nephrology following -continue to monitor s/p robbins removal and urine output Code(s): N17.9 - ACUTE KIDNEY FAILURE, UNSPECIFIED Qualifiers: Acute renal failure type: unspecified Qualified Code(s): N17.9 - Acute kidney failure, unspecified (4) Hydronephrosis Assessment/Plan: -resolved on CT scan -urology following Code(s): N13.30 - UNSPECIFIED HYDRONEPHROSIS (5) Nephrolithiasis Assessment/Plan: -not seen on CT scan Code(s): N20.0 - CALCULUS OF KIDNEY (6) Anemia Assessment/Plan: -hematology and GI consulted -planning for EGD/colonoscopy tomorrow Code(s): D64.9 - ANEMIA, UNSPECIFIED Qualifiers: Anemia type: iron deficiency Iron deficiency anemia type: unspecified iron deficiency Qualified Code(s): D50.9 - Iron deficiency anemia, unspecified (7) Hypertension Assessment/Plan: -improved on increased amlodipine -continue amlodipine 10mg daily -will await nephrology recommendations about restarting olmesartan and HCTZ Code(s): I10 - ESSENTIAL (PRIMARY) HYPERTENSION (8) Hypothyroidism Assessment/Plan: -continue synthroid Code(s): E03.9 - HYPOTHYROIDISM, UNSPECIFIED (9) Accident due to mechanical fall without injury Assessment/Plan: -PT consulted Code(s): W19.XXXA - UNSPECIFIED FALL, INITIAL ENCOUNTER Qualifiers: Encounter type: initial encounter Qualified Code(s): W19.XXXA - Unspecified fall, initial encounter
--- NOTE | 2017-07-02 15:19 | PN ---
Progress Note (short form) - Note Progress Note: Renal Follow up for GILA vs. CKD Pt seen and examined at the bedside awake and alert much better appearing robbins removed yesterday, intially found to have PVR ~400cc but then was able to void no sob, chest pain, abd pain for EGD/Colonoscopy tomorrow Vital Signs Temperature 98.9 F 07/02/17 14:08 Pulse Rate 77 07/02/17 14:08 Respiratory Rate 20 07/02/17 14:08 Blood Pressure 143/68 07/02/17 14:08 O2 Sat by Pulse Oximetry (%) 98 07/02/17 09:00 Intake & Output 06/29/17 06/30/17 07/01/17 07/02/17 23:59 23:59 23:59 23:59 Intake Total 366 68 6495 1450 Output Total 1150 2300 1225 400 Balance -210 -2250 225 1050 gen: NAD, awake and alert CVS:RRR Lungs CTA (anterior) Abd: soft NT/ND, no bladder distension Ext: no edema CBC, BMP 07/02/17 07:00 07/02/17 07:00 Current Medications Acetaminophen (Tylenol -) 650 mg PO Q4H PRN PRN Reason: FEVER OR PAIN Last Admin: 06/30/17 15:28 Dose: 650 mg Amlodipine Besylate (Norvasc -) 10 mg PO DAILY [facility] Last Admin: 07/02/17 09:40 Dose: 10 mg Ascorbic Acid (Vitamin C -) 500 mg PO BID [facility] Last Admin: 07/02/17 09:40 Dose: 500 mg Aspirin (Asa -) 81 mg PO DAILY [facility] Last Admin: 07/02/17 09:50 Dose: 81 mg Docusate Sodium (Colace -) 100 mg PO BID [facility] Last Admin: 07/02/17 09:40 Dose: 100 mg Ferrous Sulfate (Feosol -) 325 mg PO BID [facility] Last Admin: 07/02/17 09:40 Dose: 325 mg Heparin Sodium (Porcine) (Heparin -) 5,000 unit SQ BID [facility] Last Admin: 07/02/17 09:50 Dose: 5,000 unit Ceftriaxone Sodium 1 gm/ (Dextrose) 50 mls @ 100 mls/hr IVPB DAILY [facility] Last Admin: 07/02/17 09:41 Dose: 100 mls/hr Levothyroxine Sodium (Synthroid -) 75 mcg PO DAILY@0700 [facility] Last Admin: 07/02/17 06:15 Dose: 75 mcg Meclizine HCl (Antivert -) 25 mg PO Q6H PRN PRN Reason: DIZZINESS Ptnt's Own Med ( Apple Cider Vinegar 108 Mg) 108 mg PO BID [facility] Last Admin: 07/02/17 09:39 Dose: 108 mg Polyethylene Glycol (Miralax (For Daily Use) -) 17 gm PO BID [facility] Last Admin: 07/02/17 09:40 Dose: 17 grams Polyethylene Glycol (Miralax (For Bowel Prep) -) 255 gm PO ONCE ONE Stop: 07/02/17 16:01 Tramadol HCl (Ultram -) 50 mg PO Q8H PRN PRN Reason: PAIN LEVEL 6-10 Last Admin: 07/01/17 23:46 Dose: 50 mg A/P 87 year old woman with PMhx of HTN, chronic back pain, chronic bilateral knee pain, prolapsed bladder and thyroid disease who presented with weakness and found to be febrile and with GILA with b/l hydronephrosis #Non-oliguric Acute Kidney Injury with b/l hydronephrosis with some small kidney stones Renal function improved s/p IVF and Robbins now robbins discontinued and pt voiding Cr stable for now would continue to trend BUN/Cr and Urine output #Fever/Cystitis continue Ceftriaxone as per ID #Anemia For EGD/Colonoscopy tomorrow please do not use any phosphorous based enemas for bowel prep Thank you Al Madrigal DO
--- NOTE | 2017-07-02 15:41 | PN ---
Progress Note (short form) - Note Progress Note: Patient seen and examined. Chart reviewed in detail. Labs/notes reviewed Constitutional: Yes: Well Nourished, No Distress, Calm Eyes: Yes: Conjunctiva Clear HENT: Yes: Atraumatic Neck: Yes: Supple, Trachea Midline. No: Lymphadenopathy Cardiovascular: Yes: Regular Rate and Rhythm, S1, S2. No: Murmur Respiratory: Yes: WNL, Regular, CTA Bilaterally. No: Rales, Stridor, Tachypnea Gastrointestinal: Yes: Normal Bowel Sounds, Abdomen, Obese. No: Splenomegaly, Tenderness Extremities: Yes: WNL Neurological: Yes: Alert, Oriented Temp Pulse Resp BP Pulse Ox 98.9 F 77 20 143/68 98 07/02/17 14:08 07/02/17 14:08 07/02/17 14:08 07/02/17 14:08 07/02/17 09:00 Current Medications Generic Name Dose Route Start Last Admin Trade Name Freq PRN Reason Stop Dose Admin Acetaminophen 650 mg 06/27/17 21:50 06/30/17 15:28 Tylenol - PO 650 mg Q4H PRN Administration FEVER OR PAIN Amlodipine Besylate 10 mg 07/01/17 10:00 07/02/17 09:40 Norvasc - PO 10 mg HODAN Y DEJAN Administration Ascorbic Acid 500 mg 06/29/17 22:00 07/02/17 09:40 Vitamin C - PO 500 mg BID DEJAN Administration Aspirin 81 mg 06/28/17 10:00 07/02/17 09:50 Asa - PO 81 mg DAILY DEJAN Administration Docusate Sodium 100 mg 06/30/17 22:00 07/02/17 09:40 Colace - PO 100 mg BID DEJAN Administration Ferrous Sulfate 325 mg 06/29/17 22:00 07/02/17 09:40 Feosol - PO 325 mg BID DEJAN Administration Heparin Sodium (Porcine) 5,000 unit 06/27/17 22:00 07/02/17 09:50 Heparin - SQ 5,000 unit BID DEJAN Administration Ceftriaxone Sodium 1 gm/ 50 mls @ 100 mls/hr 06/28/17 10:00 07/02/17 09:41 Dextrose IVPB 100 mls/hr DAILY DEJAN Administration Levothyroxine Sodium 75 mcg 06/28/17 07:00 07/02/17 06:15 Synthroid - PO 75 mcg DAILY@0700 DEJAN Administration Meclizine HCl 25 mg 06/27/17 17:18 Antivert - PO Q6H PRN DIZZINESS Ptnt's Own Med ( 108 mg 06/28/17 22:00 07/02/17 09:39 Apple Cider Vinegar PO 108 mg 108 Mg) BID DEJAN Administration Polyethylene Glycol 17 gm 06/30/17 22:00 07/02/17 09:40 Miralax (For Daily Use) - PO 17 grams BID DEJAN Administration Polyethylene Glycol 255 gm 07/02/17 16:00 Miralax (For Bowel Prep) - PO 07/02/17 16:01 ONCE ONE Tramadol HCl 50 mg 06/27/17 17:18 07/01/17 23:46 Ultram - PO 50 mg Q8H PRN Administration PAIN LEVEL 6-10 A/P: Anemia (Fe def) CKD Hypothyroidism -for GI procedures tomorrow -presently crit stable -will follow up -discussed with son and pt
[2017-07-02] MEDS ORDERED: POLYETHYLENE GLYCOL 3350 255 GM BTL PO ONE (16:00)
[2017-07-03] MEDS ORDERED: HYDROCHLOROTHIAZIDE 25 MG TABLET (FP) PO ONE (00:23)
[2017-07-03] MEDS ORDERED: PANTOPRAZOLE SODIUM 40 MG in SODIUM CHLORIDE 100 ML IVPB ONE (00:26)
--- NOTE | 2017-07-03 00:27 | HOSP ---
Physical Examination Vital Signs: Vital Signs Temperature 98.5 F 07/02/17 22:59 Pulse Rate 90 07/03/17 00:09 Respiratory Rate 20 07/03/17 00:09 Blood Pressure 182/78 07/03/17 00:09 O2 Sat by Pulse Oximetry (%) 98 07/02/17 09:00 Labs: CBC, BMP 07/02/17 07:00 07/02/17 07:00 Hospitalist Encounter Assessment: Paged by RN. Patient's BP 182/78 and complaining of heartburn. Patient on maximum dose of norvasc. Will give 1x dose of HCTZ 25 mg po for BP. For heartburn, will give 40 mg IVPB protonix. Visit type - Emergency Visit Emergency Visit: Yes ED Registration Date: 06/27/17 Care time: The patient presented to the Emergency Department on the above date and was hospitalized for further evaluation of their emergent condition. - New Patient This patient is new to me today: Yes Date on this admission: 07/03/17 - Critical Care Critical Care patient: No
[2017-07-03] MEDS ORDERED: PANTOPRAZOLE SODIUM 40 MG VIAL ONE (00:39)
[2017-07-03] MEDS ORDERED: SODIUM CHLORIDE 100 ML IVPB ONE (00:40)
[2017-07-03] MEDS: LEVOTHYROXINE NA 75 MCG TABLET (FP) PO SCH (06:41)
[2017-07-03 08:25] LABS: MCHC 33.2 g/dl (32.0-36.0); MEAN CELL VOLUME 90.4 fl (80-96); MEAN PLT VOLUME 7.7 fl (7.5-11.1); PLATELET COUNT 396 K/MM3 (134-434); RDW 16.4 % (11.6-15.6); WHITE BLOOD COUNT 9.6 K/mm3 (4.0-10.0)
[2017-07-03 09:34] LABS: ANION GAP 11 (8-16); CO2 23 mmol/L (21-32); GLUCOSE,RANDOM 91 mg/dL (74-106); MAGNESIUM 2.4 mg/dL (1.8-2.4)
[2017-07-03 09:37] LABS: CALCIUM 9.3 mg/dL (8.5-10.1); CREATININE 1.4 mg/dL (0.55-1.02); PHOSPHOROUS 3.2 mg/dL (2.5-4.9)
[2017-07-03 09:41] LABS: BASOPHIL (MANUAL) 1 % (0-2.0); METAMYELOCYTE 1 % (0-2); MYELOCYTE 1 % (0-2); PLATELET ESTIMATE ADEQUATE (NORMAL); TOTAL CELLS COUNTED 100
[2017-07-03] MEDS ORDERED: cefTRIAXone SODIUM 1 GM VIAL ONE (11:27)
[2017-07-03] MEDS ORDERED: DEXTROSE 5%-WATER - 50 ML IVPB ONE (11:28)
[2017-07-03] MEDS: CEFTRIAXONE 1 GM in DEXTROSE 5%-WATER - 50 ML IVPB SCH (11:32)
[2017-07-03] MEDS ORDERED: LIDOCAINE HCL/PF 2% SDV 5ML VIAL ONE (12:13)
[2017-07-03] MEDS ORDERED: PROPOFOL 20 ML ONE ×5 (12:14)
--- NOTE | 2017-07-03 14:37 | PN ---
Progress Note, Physician Chief Complaint: Ms Richards says she is feeling well today. No cp, sob, n/v. - Current Medication List Current Medications: Active Medications Acetaminophen (Tylenol -) 650 mg PO Q4H PRN PRN Reason: FEVER OR PAIN Last Admin: 06/30/17 15:28 Dose: 650 mg Amlodipine Besylate (Norvasc -) 10 mg PO DAILY [facility] Last Admin: 07/02/17 09:40 Dose: 10 mg Ascorbic Acid (Vitamin C -) 500 mg PO BID [facility] Last Admin: 07/02/17 22:46 Dose: 500 mg Aspirin (Asa -) 81 mg PO DAILY [facility] Last Admin: 07/02/17 09:50 Dose: 81 mg Docusate Sodium (Colace -) 100 mg PO BID [facility] Last Admin: 07/02/17 22:45 Dose: 100 mg Ferrous Sulfate (Feosol -) 325 mg PO BID [facility] Last Admin: 07/02/17 22:46 Dose: 325 mg Heparin Sodium (Porcine) (Heparin -) 5,000 unit SQ BID [facility] Last Admin: 07/02/17 22:57 Dose: 5,000 unit Ceftriaxone Sodium 1 gm/ (Dextrose) 50 mls @ 100 mls/hr IVPB DAILY [facility] Last Admin: 07/03/17 11:32 Dose: 100 mls/hr Levothyroxine Sodium (Synthroid -) 75 mcg PO DAILY@0700 [facility] Last Admin: 07/03/17 06:41 Dose: 75 mcg Meclizine HCl (Antivert -) 25 mg PO Q6H PRN PRN Reason: DIZZINESS Last Admin: 07/02/17 22:46 Dose: 25 mg Ptnt's Own Med ( Apple Cider Vinegar 108 Mg) 108 mg PO BID [facility] Last Admin: 07/02/17 22:45 Dose: 108 mg Polyethylene Glycol (Miralax (For Daily Use) -) 17 gm PO BID [facility] Last Admin: 07/02/17 22:56 Dose: 17 grams Tramadol HCl (Ultram -) 50 mg PO Q8H PRN PRN Reason: PAIN LEVEL 6-10 Last Admin: 07/01/17 23:46 Dose: 50 mg - Objective Vital Signs: Vital Signs Temperature 36.9 C 07/03/17 14:10 Pulse Rate 62 07/03/17 14:10 Respiratory Rate 19 07/03/17 14:10 Blood Pressure 130/58 07/03/17 14:10 O2 Sat by Pulse Oximetry (%) 100 07/03/17 14:10 Constitutional: Yes: Well Nourished, No Distress, Calm Cardiovascular: Yes: Regular Rate and Rhythm. No: Gallop, Murmur, Rub Respiratory: Yes: Regular, CTA Bilaterally. No: Rales, Rhonchi, Wheezes Gastrointestinal: Yes: Normal Bowel Sounds, Soft. No: Distention, Tenderness Extremities: Yes: WNL Edema: No Labs: CBC, BMP 07/03/17 07:35 07/03/17 07:35 INR, PTT INR 1.32 (0.82-1.09) H D 06/27/17 14:02 Problem List - Problems (1) UTI (urinary tract infection), bacterial Code(s): N39.0 - URINARY TRACT INFECTION, SITE NOT SPECIFIED A49.9 - BACTERIAL INFECTION, UNSPECIFIED (2) Sepsis Code(s): A41.9 - SEPSIS, UNSPECIFIED ORGANISM (3) Acute kidney failure Code(s): N17.9 - ACUTE KIDNEY FAILURE, UNSPECIFIED Qualifiers: Acute renal failure type: unspecified Qualified Code(s): N17.9 - Acute kidney failure, unspecified (4) Hydronephrosis Code(s): N13.30 - UNSPECIFIED HYDRONEPHROSIS (5) Nephrolithiasis Code(s): N20.0 - CALCULUS OF KIDNEY (6) Anemia Code(s): D64.9 - ANEMIA, UNSPECIFIED Qualifiers: Anemia type: iron deficiency Iron deficiency anemia type: unspecified iron deficiency Qualified Code(s): D50.9 - Iron deficiency anemia, unspecified (7) Hypertension Code(s): I10 - ESSENTIAL (PRIMARY) HYPERTENSION (8) Hypothyroidism Code(s): E03.9 - HYPOTHYROIDISM, UNSPECIFIED (9) Accident due to mechanical fall without injury Code(s): W19.XXXA - UNSPECIFIED FALL, INITIAL ENCOUNTER Qualifiers: Encounter type: initial encounter Qualified Code(s): W19.XXXA - Unspecified fall, initial encounter Assessment/Plan (1) UTI (urinary tract infection), bacterial Assessment/Plan: -patient with pansensitive e coli UTI -continue rocephin day 04/01 -ID following Code(s): N39.0 - URINARY TRACT INFECTION, SITE NOT SPECIFIED A49.9 - BACTERIAL INFECTION, UNSPECIFIED (2) Sepsis Assessment/Plan: -present on admission -resolved -continue rocephin Code(s): A41.9 - SEPSIS, UNSPECIFIED ORGANISM (3) Acute kidney failure Assessment/Plan: -creatinine stable -nephrology following -continue to monitor s/p robbins removal and urine output Code(s): N17.9 - ACUTE KIDNEY FAILURE, UNSPECIFIED Qualifiers: Acute renal failure type: unspecified Qualified Code(s): N17.9 - Acute kidney failure, unspecified (4) Hydronephrosis Assessment/Plan: -resolved on CT scan -urology following Code(s): N13.30 - UNSPECIFIED HYDRONEPHROSIS (5) Nephrolithiasis Assessment/Plan: -not seen on CT scan Code(s): N20.0 - CALCULUS OF KIDNEY (6) Anemia Assessment/Plan: -hematology and GI consulted -planning for EGD/colonoscopy today -if normal, possible discharge tomorrow Code(s): D64.9 - ANEMIA, UNSPECIFIED Qualifiers: Anemia type: iron deficiency Iron deficiency anemia type: unspecified iron deficiency Qualified Code(s): D50.9 - Iron deficiency anemia, unspecified (7) Hypertension Assessment/Plan: -improved on increased amlodipine -continue amlodipine 10mg daily -will await nephrology recommendations about restarting olmesartan and HCTZ if needed Code(s): I10 - ESSENTIAL (PRIMARY) HYPERTENSION (8) Hypothyroidism Assessment/Plan: -continue synthroid Code(s): E03.9 - HYPOTHYROIDISM, UNSPECIFIED (9) Accident due to mechanical fall without injury Assessment/Plan: -PT consulted Code(s): W19.XXXA - UNSPECIFIED FALL, INITIAL ENCOUNTER Qualifiers: Encounter type: initial encounter Qualified Code(s): W19.XXXA - Unspecified fall, initial encounter
[2017-07-03] MEDS: APPLE CIDER VINEGAR PO SCH ×2 (15:43→22:27)
[2017-07-03] MEDS: DOCUSATE SODIUM 100 MG CAPSULE (FP) PO SCH ×2 (15:44→22:27)
[2017-07-03] MEDS: ASCORBIC ACID 500 MG TABLET (FP) PO SCH ×2 (15:44→22:27)
[2017-07-03] MEDS: FERROUS SO4 325 MG TABLET (FP) PO SCH ×2 (15:44→22:27)
[2017-07-03] MEDS: ASPIRIN 81 MG CHEWABLE TABLETS PO SCH (15:44)
[2017-07-03] MEDS: POLYETHYLENE GLYCOL 3350 119 GM BTL PO SCH ×2 (15:45→22:28)
[2017-07-03] MEDS: amLODIPine BESYLATE 5 MG TABLET (FP) PO SCH (15:45)
[2017-07-03] MEDS ORDERED: PT OWN MED DRAWER 7, Y5N ONE (22:14)
[2017-07-03] MEDS: HEPARIN NA (PORCINE) 5,000 UNITS/ML 1ML VIAL SQ SCH (22:27)
[2017-07-03] MEDS: ACETAMINOPHEN 325 MG TABLET (FP) PO PRN (22:27)
[2017-07-04] MEDS: LEVOTHYROXINE NA 75 MCG TABLET (FP) PO SCH (06:20)
[2017-07-04 08:11] LABS: MCH 29.6 pg (25.7-33.7); MCHC 32.8 g/dl (32.0-36.0); MEAN CELL VOLUME 90.1 fl (80-96); MEAN PLT VOLUME 7.7 fl (7.5-11.1); PLATELET COUNT 454 K/MM3 (134-434); RDW 16.7 % (11.6-15.6)
[2017-07-04 08:16] LABS: ANION GAP 12 (8-16); CALCIUM 8.7 mg/dL (8.5-10.1); CO2 21 mmol/L (21-32); CREATININE 1.4 mg/dL (0.55-1.02); GLUCOSE,RANDOM 76 mg/dL (74-106); MAGNESIUM 2.3 mg/dL (1.8-2.4); PHOSPHOROUS 2.9 mg/dL (2.5-4.9)
--- NOTE | 2017-07-04 10:23 | PN ---
Progress Note (short form) - Note Progress Note: Renal Follow up for GILA vs. CKD Pt seen and examined at the bedside awake and alert no acute complaints s/p EGD yesterday was able to eat breakfast today reports good urination, has frequent urination at night no sob, chest pain, abd pain, N/V/D Vital Signs Temperature 99.2 F 07/04/17 05:54 Pulse Rate 70 07/04/17 05:54 Respiratory Rate 20 07/04/17 05:54 Blood Pressure 147/62 07/04/17 05:54 O2 Sat by Pulse Oximetry (%) 98 07/03/17 21:00 Intake & Output 07/01/17 07/02/17 07/03/17 07/04/17 23:59 23:59 23:59 23:59 Intake Total 1450 1450 840 0 Output Total 1225 400 Balance 225 1050 840 0 gen: NAD, awake and alert CVS:RRR Lungs CTA (anterior) Abd: soft NT/ND, no bladder distension Ext: no edema CBC, BMP 07/04/17 06:00 07/04/17 06:00 Laboratory Tests 07/02/17 07/04/17 07:00 06:00 Calcium 8.9 8.7 Phosphorus 3.2 2.9 Magnesium 2.3 2.3 Current Medications Acetaminophen (Tylenol -) 650 mg PO Q4H PRN PRN Reason: FEVER OR PAIN Last Admin: 07/03/17 22:27 Dose: 650 mg Amlodipine Besylate (Norvasc -) 10 mg PO DAILY [facility] Last Admin: 07/03/17 15:45 Dose: 10 mg Ascorbic Acid (Vitamin C -) 500 mg PO BID [facility] Last Admin: 07/03/17 22:27 Dose: 500 mg Aspirin (Asa -) 81 mg PO DAILY [facility] Last Admin: 07/03/17 15:44 Dose: 81 mg Docusate Sodium (Colace -) 100 mg PO BID [facility] Last Admin: 07/03/17 22:27 Dose: 100 mg Ferrous Sulfate (Feosol -) 325 mg PO BID [facility] Last Admin: 07/03/17 22:27 Dose: 325 mg Heparin Sodium (Porcine) (Heparin -) 5,000 unit SQ BID [facility] Last Admin: 07/03/17 22:27 Dose: 5,000 unit Ceftriaxone Sodium 1 gm/ (Dextrose) 50 mls @ 100 mls/hr IVPB DAILY [facility] Last Admin: 07/03/17 11:32 Dose: 100 mls/hr Levothyroxine Sodium (Synthroid -) 75 mcg PO DAILY@0700 [facility] Last Admin: 07/04/17 06:20 Dose: 75 mcg Meclizine HCl (Antivert -) 25 mg PO Q6H PRN PRN Reason: DIZZINESS Last Admin: 07/02/17 22:46 Dose: 25 mg Ptnt's Own Med ( Apple Cider Vinegar 108 Mg) 108 mg PO BID [facility] Last Admin: 07/03/17 22:27 Dose: 108 mg Polyethylene Glycol (Miralax (For Daily Use) -) 17 gm PO BID [facility] Last Admin: 07/03/17 22:28 Dose: Not Given Tramadol HCl (Ultram -) 50 mg PO Q8H PRN PRN Reason: PAIN LEVEL 6-10 Last Admin: 07/01/17 23:46 Dose: 50 mg A/P 87 year old woman with PMhx of HTN, chronic back pain, chronic bilateral knee pain, prolapsed bladder and thyroid disease who presented with weakness and found to be febrile and with GILA with b/l hydronephrosis #Non-oliguric Acute Kidney Injury with b/l hydronephrosis with some small kidney stones Renal function improved and stable, baseline Cr ~1 pt voiding well w/o catheter trend BUN/Cr no CARLOZ/ARB/NSAIDs as renal function not at baseline yet #Fever/Cystitis continue Ceftriaxone as per ID #Anemia s/p EGD yesterday GI follow up Thank you Al Madrigal DO
--- NOTE | 2017-07-04 10:50 | PN ---
Progress Note (short form) - Note Progress Note: Patient seen and examined. Chart reviewed at length. Patient well known to me from outpatient care. Currently OOB to chair, alert and appropriate. Denies new chest discomfort, dyspnea or abdominal discomfort No dysuria. Fatigue persists. No pre-syncope EGD reviewed Colonoscopy report pending. Labs, radiologic procedures, medications and progress notes reviewed. Plan to send patient to SNF/Rehab Medications Non-Formulary Medication (Apple Cider Vinegar) 108 mg PO BID [facility] Last Admin: 07/03/17 22:27 Dose: 108 mg Amlodipine Besylate (Norvasc -) 10 mg PO DAILY [facility] Last Admin: 07/03/17 15:45 Dose: 10 mg Aspirin (Asa -) 81 mg PO DAILY [facility] Last Admin: 07/03/17 15:44 Dose: 81 mg Tramadol HCl (Ultram -) 50 mg PO Q8H PRN PRN Reason: PAIN LEVEL 6-10 Last Admin: 07/01/17 23:46 Dose: 50 mg Levothyroxine Sodium (Synthroid -) 75 mcg PO DAILY@0700 [facility] Last Admin: 07/04/17 06:20 Dose: 75 mcg Ascorbic Acid (Vitamin C -) 500 mg PO BID [facility] Last Admin: 07/03/17 22:27 Dose: 500 mg Acetaminophen (Tylenol -) 650 mg PO Q4H PRN PRN Reason: FEVER OR PAIN Last Admin: 07/03/17 22:27 Dose: 650 mg Ceftriaxone Sodium 1 gm/ (Dextrose) 50 mls @ 100 mls/hr IVPB DAILY [facility] Last Admin: 07/03/17 11:32 Dose: 100 mls/hr Heparin Sodium (Porcine) (Heparin -) 5,000 unit SQ BID [facility] Last Admin: 07/03/17 22:27 Dose: 5,000 unit Meclizine HCl (Antivert -) 25 mg PO Q6H PRN PRN Reason: DIZZINESS Last Admin: 07/02/17 22:46 Dose: 25 mg Docusate Sodium (Colace -) 100 mg PO BID [facility] Last Admin: 07/03/17 22:27 Dose: 100 mg Polyethylene Glycol (Miralax (For Daily Use) -) 17 gm PO BID [facility] Last Admin: 07/03/17 22:28 Dose: Not Given Ferrous Sulfate (Feosol -) 325 mg PO BID [facility] Last Admin: 07/03/17 22:27 Dose: 325 mg Selected Entries 07/04/17 05:54 Temperature 99.2 F Pulse Rate 70 Respiratory 20 Rate Blood Pressure 147/62 Laboratory Tests 07/04/17 07/04/17 06:00 06:00 WBC 15.0 H D Hgb 8.7 L Hct 26.6 L Plt Count 454 H Sodium 137 Potassium 3.9 Chloride 104 Carbon Dioxide 21 BUN 21 H Creatinine 1.4 H Random Glucose 76 Calcium 8.7 Phosphorus 2.9 Magnesium 2.3 Chest Clear Cor RRR Abd Soft non-tender No mass Ext No edema No phlebitis Neuro No new focal deficit Assessment and Plan UTI On Rx Hydronephrosis Not seen on follow-up CT Nephrolithiasis Not noted Elevated temperature 99.2 last PM Monitor Patient appears non-toxic Elevated WBC 15K this AM Monitor Elevated Platelets 454K ?acute phase reaction Renal insufficiency BUN/Cr 21/1.4 Anemia Await colonoscopy report EGD noted Although the MCV had been higher in the past, it is not low, nor is the Ferritin low. Also, the TIBC is inappropriately low normal (it should be elevated in the face of such a low iron ) Therefore, in addition to a possible iron deficiency anemia, there is likely to a be a significant contribution from "chronic disease" factors. Note low serum albumin as well, which is also a marker for acute and chronic disease states. Hypoalbuminemia As above Dysproteinemia Elevated Free [place] 28.4 HTN Stable Mental status changes Has been sseen by 2 neurologists recently to assess for early dementia On no Rx Low back pain Stable H/o prolapsed bladder Hypothyroid Stable Atrophic gastritis On EGD Hiatal hernia On EGD Continue current Rx Recheck labs To consider SNF/Rehab transfer Await data regarding colonoscopy .
[2017-07-04] MEDS ORDERED: cefTRIAXone SODIUM 1 GM VIAL ONE (10:51)
[2017-07-04] MEDS ORDERED: DEXTROSE 5%-WATER - 50 ML IVPB ONE (10:51)
[2017-07-04] MEDS ORDERED: PT OWN MED DRAWER 7, Y5N ONE (10:51)
[2017-07-04] MEDS: amLODIPine BESYLATE 5 MG TABLET (FP) PO SCH (10:57)
[2017-07-04] MEDS: FERROUS SO4 325 MG TABLET (FP) PO SCH ×2 (10:57→21:31)
[2017-07-04] MEDS: HEPARIN NA (PORCINE) 5,000 UNITS/ML 1ML VIAL SQ SCH ×2 (10:57→21:30)
[2017-07-04] MEDS: ASCORBIC ACID 500 MG TABLET (FP) PO SCH ×2 (10:57→21:31)
[2017-07-04] MEDS: ASPIRIN 81 MG CHEWABLE TABLETS PO SCH (10:57)
[2017-07-04] MEDS: DOCUSATE SODIUM 100 MG CAPSULE (FP) PO SCH ×2 (10:58→21:31)
[2017-07-04] MEDS: APPLE CIDER VINEGAR PO SCH ×2 (10:58→21:31)
[2017-07-04 10:59] LABS: METAMYELOCYTE 2 % (0-2); TOTAL CELLS COUNTED 100
[2017-07-04] MEDS: CEFTRIAXONE 1 GM in DEXTROSE 5%-WATER - 50 ML IVPB SCH (10:59)
[2017-07-04] MEDS: POLYETHYLENE GLYCOL 3350 119 GM BTL PO SCH ×2 (14:32→21:31)
[2017-07-05] MEDS: LEVOTHYROXINE NA 75 MCG TABLET (FP) PO SCH (06:45)
[2017-07-05 07:18] LABS: MCH 29.9 pg (25.7-33.7); MEAN CELL VOLUME 90.6 fl (80-96); MEAN PLT VOLUME 7.4 fl (7.5-11.1); PLATELET COUNT 593 K/MM3 (134-434); RDW 17.4 % (11.6-15.6); WHITE BLOOD COUNT 12.4 K/mm3 (4.0-10.0)
[2017-07-05 07:52] LABS: ANION GAP 12 (8-16); CALCIUM 9.1 mg/dL (8.5-10.1); CO2 22 mmol/L (21-32); CREATININE 1.7 mg/dL (0.55-1.02); GLUCOSE,RANDOM 85 mg/dL (74-106); MAGNESIUM 2.5 mg/dL (1.8-2.4); PHOSPHOROUS 3.1 mg/dL (2.5-4.9)
[2017-07-05 09:00] LABS: TOTAL CELLS COUNTED 100
[2017-07-05 09:01] LABS: METAMYELOCYTE 1 % (0-2)
[2017-07-05] MEDS ORDERED: cefTRIAXone SODIUM 1 GM VIAL ONE (09:34)
[2017-07-05] MEDS ORDERED: DEXTROSE 5%-WATER - 50 ML IVPB ONE (09:34)
[2017-07-05] MEDS: FERROUS SO4 325 MG TABLET (FP) PO SCH ×2 (09:43→21:29)
[2017-07-05] MEDS: ASPIRIN 81 MG CHEWABLE TABLETS PO SCH (09:43)
[2017-07-05] MEDS: amLODIPine BESYLATE 5 MG TABLET (FP) PO SCH (09:43)
[2017-07-05] MEDS: HEPARIN NA (PORCINE) 5,000 UNITS/ML 1ML VIAL SQ SCH ×2 (09:44→21:29)
[2017-07-05] MEDS: CEFTRIAXONE 1 GM in DEXTROSE 5%-WATER - 50 ML IVPB SCH (09:44)
[2017-07-05] MEDS: APPLE CIDER VINEGAR PO SCH ×2 (09:44→21:30)
[2017-07-05] MEDS: ASCORBIC ACID 500 MG TABLET (FP) PO SCH ×2 (09:45→21:29)
--- NOTE | 2017-07-05 10:23 | PN ---
Progress Note (short form) - Note Progress Note: Patient seen and examined. Chart reviewed. Patient well known to me from outpatient care. Currently OOB to chair, alert and appropriate. Denies new chest discomfort, dyspnea or abdominal discomfort No dysuria. Fatigue persists. No pre-syncope. Nurses describe periods of confusion EGD reviewed Colonoscopy report pending. Labs, radiologic procedures, medications and progress notes reviewed. Plan to send patient to SNF/Rehab Selected Entries 07/05/17 07/05/17 05:43 09:00 Temperature 98.9 F Pulse Rate 88 Respiratory 18 Rate Blood Pressure 146/82 O2 Sat by Pulse 97 Oximetry (%) Oxygen Delivery Room Air Method Laboratory Tests 07/05/17 07/05/17 06:15 06:15 WBC 12.4 H Hgb 9.6 L D Hct 29.0 L Plt Count 593 H D Sodium 138 Potassium 3.9 Chloride 104 Carbon Dioxide 22 BUN 23 H Creatinine 1.7 H D Random Glucose 85 Calcium 9.1 Phosphorus 3.1 Magnesium 2.5 H Chest Clear Cor RRR Abd Soft non-tender No mass Ext No edema No phlebitis Neuro No new focal deficit Assessment and Plan UTI On Rx Hydronephrosis Not seen on follow-up CT Nephrolithiasis Not noted Elevated temperature Improved Monitor Patient appears non-toxic Elevated WBC 15K>>12.4K this AM Monitor Elevated Platelets 454K>>593K ?acute phase reaction Renal insufficiency BUN/Cr 21/1.4>>23/1.7 Monitor closely Anemia Await colonoscopy report EGD noted Although the MCV had been higher in the past, it is not low, nor is the Ferritin low. Also, the TIBC is inappropriately low normal (it should be elevated in the face of such a low iron ) Therefore, in addition to a possible iron deficiency anemia, there is likely to a be a significant contribution from "chronic disease" factors. Note low serum albumin as well, which is also a marker for acute and chronic disease states. Hypoalbuminemia As above Dysproteinemia Elevated Free [place] 28.4 HTN Stable Mental status changes Has been seen by 2 neurologists recently to assess for early dementia On no Rx Low back pain Stable H/o prolapsed bladder Hypothyroid Stable Atrophic gastritis On EGD Hiatal hernia On EGD Continue current Rx Recheck labs To consider SNF/Rehab transfer Await data regarding colonoscopy .
[2017-07-05] MEDS: POLYETHYLENE GLYCOL 3350 119 GM BTL PO SCH ×2 (12:00→21:30)
[2017-07-05] MEDS: DOCUSATE SODIUM 100 MG CAPSULE (FP) PO SCH ×2 (12:00→21:29)
[2017-07-06] MEDS: LEVOTHYROXINE NA 75 MCG TABLET (FP) PO SCH (06:32)
[2017-07-06] MEDS ORDERED: PT OWN MED DRAWER 7, Y5N ONE (06:38)
[2017-07-06 07:51] LABS: MCH 30.5 pg (25.7-33.7); MCHC 33.5 g/dl (32.0-36.0); MEAN CELL VOLUME 91.2 fl (80-96); MEAN PLT VOLUME 7.4 fl (7.5-11.1); PLATELET COUNT 513 K/MM3 (134-434); RDW 17.2 % (11.6-15.6); WHITE BLOOD COUNT 9.2 K/mm3 (4.0-10.0)
[2017-07-06 08:08] LABS: ALBUMIN 3.1 g/dl (3.4-5.0); ANION GAP 11 (8-16); BILIRUBIN,TOTAL 0.4 mg/dL (0.2-1.0); CALCIUM 8.9 mg/dL (8.5-10.1); CO2 24 mmol/L (21-32); CREATININE 1.5 mg/dL (0.55-1.02); GLUCOSE,RANDOM 76 mg/dL (74-106); SGOT/AST 12 U/L (15-37); SGPT/ALT 22 U/L (12-78); TOT PROT 6.3 g/dl (6.4-8.2)
[2017-07-06 08:09] LABS: ALK PHOS 71 U/L (45-117)
[2017-07-06 09:31] LABS: MYELOCYTE 1 % (0-2); TOTAL CELLS COUNTED 100
--- NOTE | 2017-07-06 09:57 | DS ---
Physical Examination Vital Signs: Vital Signs Temperature 98.4 F 07/06/17 06:00 Pulse Rate 78 07/06/17 06:00 Respiratory Rate 18 07/06/17 06:00 Blood Pressure 150/77 07/06/17 06:00 O2 Sat by Pulse Oximetry (%) 99 07/05/17 21:00 Constitutional: Yes: No Distress, Calm Eyes: No: Sclera Icterus Cardiovascular: Yes: Regular Rate and Rhythm Respiratory: Yes: CTA Bilaterally Gastrointestinal: Yes: Normal Bowel Sounds, Soft Edema: No Labs: CBC, BMP 07/06/17 07:00 07/06/17 07:00 Discharge Summary Reason For Visit: ACUTE RENAL FAILURE,URINARY TRACT BACTERIAL Current Active Problems Acute kidney failure (Chronic) Anemia (Chronic) Hypertension (Chronic) Hypothyroidism (Chronic) Osteoarthritis (Chronic) Hospital Course: Please refer to daily notes and problem list UTI treated with iv antibiotics Mental status currently stable Will require urologic follow-up for bladder dysfunction as well as follow up for breast biopsy which had to be postponed Condition: Fair - Instructions Referrals: Jewel Nassar MD [Primary Care Provider] - Disposition: [facility] - Home Medications Comprehensive Discharge Medication List: Ambulatory Orders Olmesartan/Hydrochlorothiazide [Benicar Hct 40-25 mg Tablet] 1 each PO DAILY #0 tablet 08/22/12 Tramadol HCl 50 mg PO TID PRN #10 tablet MDD 3 10/14/16 Acetaminophen [Tylenol .Regular Strength -] 650 mg PO Q4H PRN #0 tablet Amlodipine Besylate [Norvasc -] 10 mg PO DAILY tablet 07/06/17 Apple Cider Vinegar 108 mg PO BID ml 07/06/17 Ascorbic Acid [Vitamin C -] 500 mg PO BID tablet 07/06/17 Aspirin [ASA -] 81 mg PO DAILY tab.chew 07/06/17 Docusate Sodium [Colace -] 100 mg PO BID #60 cap 07/06/17 Ferrous Sulfate [Feosol] 325 mg PO DAILY #30 tab 07/06/17 Levothyroxine [Synthroid -] 75 mcg PO DAILY@0700 tablet 07/06/17 Meclizine HCl [Antivert -] 25 mg PO Q6H PRN #0 tablet 07/06/17 Polyethylene Glycol 3350 [Miralax 119 gm Btl -] 17 gm PO DAILY PRN #1 bottle 09/11
[2017-07-06] MEDS ORDERED: cefTRIAXone SODIUM 1 GM VIAL ONE (10:42)
[2017-07-06] MEDS ORDERED: DEXTROSE 5%-WATER - 50 ML IVPB ONE (10:42)
[2017-07-06 10:54] VITALS: BP 122/76; PULSE 80; TEMP 97.6
[2017-07-06] MEDS: ASCORBIC ACID 500 MG TABLET (FP) PO SCH (10:54)
[2017-07-06] MEDS: DOCUSATE SODIUM 100 MG CAPSULE (FP) PO SCH (10:54)
[2017-07-06] MEDS: ASPIRIN 81 MG CHEWABLE TABLETS PO SCH (10:54)
[2017-07-06] MEDS: amLODIPine BESYLATE 5 MG TABLET (FP) PO SCH (10:55)
[2017-07-06] MEDS: POLYETHYLENE GLYCOL 3350 119 GM BTL PO SCH (10:55)
[2017-07-06] MEDS: CEFTRIAXONE 1 GM in DEXTROSE 5%-WATER - 50 ML IVPB SCH (10:55)
[2017-07-06] MEDS: HEPARIN NA (PORCINE) 5,000 UNITS/ML 1ML VIAL SQ SCH (10:55)
[2017-07-06] MEDS: FERROUS SO4 325 MG TABLET (FP) PO SCH (10:56)
[2017-07-06] MEDS: APPLE CIDER VINEGAR PO SCH (10:56)
--- NOTE | 2017-07-06 18:34 | PN ---
Progress Note (short form) - Note Progress Note: Renal Follow up for GILA vs. CKD Pt seen and examined at the bedside prior to discharge no acute complaints eager to go home frequent urination now resolved feels well Vital Signs Temperature 97.6 F 07/06/17 10:50 Pulse Rate 80 07/06/17 10:50 Respiratory Rate 20 07/06/17 10:50 Blood Pressure 122/76 07/06/17 10:50 O2 Sat by Pulse Oximetry (%) 98 07/06/17 11:30 Intake & Output 07/03/17 07/04/17 07/05/17 07/06/17 23:59 23:59 23:59 23:59 Intake Total 840 600 820 250 Balance 840 600 820 250 gen: NAD, awake and alert CVS:RRR Lungs CTA (anterior) Abd: soft NT/ND, no bladder distension Ext: no edema CBC, BMP 07/06/17 07:00 07/06/17 07:00 A/P 87 year old woman with PMhx of HTN, chronic back pain, chronic bilateral knee pain, prolapsed bladder and thyroid disease who presented with weakness and found to be febrile and with GILA with b/l hydronephrosis #Non-oliguric Acute Kidney Injury with b/l hydronephrosis with some small kidney stones Renal function improved and stable pt urinating w/o difficulty advised to maintain good oral intake of fluids avoidance of nsaids advised to follow with PMD and have repeat blood work #Fever/Cystitis s/p IV Abx #Anemia s/p EGD Thank you Al Madrigal DO
--- NOTE | 2017-07-07 14:20 | PATH ---
Surgical Pathology Report Patient Name: JOSELUIS DUMONT [facility]. Rec. #: [id number] /Age/Gender: 1930 (Age: 87) / F Account: [id number] Location: [address] [place] [address]/[facility] Taken: 07/03/2017 Received: 07/06/2017 Reported: 07/07/2017 Physicians: Azul Medina M.D. Specimen(s) Received A: BX SECOND PORTION DUODENUM AND DUODENAL BULB B: BX ANTRUM C: BX DISTAL ESOPHAGUS D: BX POLYPS PROXIMAL TRANSVERSE COLON Clinical History Anemia, rule out ulcer, rule out colon cancer Hiatal hernia, atrophic gastritis, colon polyps (proximal transverse colon), severe diverticulosis Final Diagnosis A. DUODENUM, SECOND PORTION AND BULB, BIOPSY: DUODENAL MUCOSA WITH MILD CHRONIC INFLAMMATION AND LORIN'S GLANDS HYPERPLASIA. NO HISTOLOGIC EVIDENCE OF GLUTEN SENSITIVE ENTEROPATHY (CELIAC DISEASE). B. STOMACH, ANTRUM, BIOPSY: GASTRIC ANTRAL AND OXYNTIC MUCOSA WITH MODERATE CHRONIC GASTRITIS. IMMUNOSTAIN FOR H. PYLORI IS NEGATIVE FOR ORGANISMS. C. ESOPHAGUS, DISTAL, BIOPSY: FRAGMENTS OF COLUMNAR GASTRIC TYPE EPITHELIUM AND ULCER SLOUGH. NO INTACT SQUAMOUS EPITHELIUM PRESENT. NO INTESTINAL METAPLASIA (FAN'S ESOPHAGUS) IDENTIFIED IN MATERIAL. NO HISTOLOGIC EVIDENCE OF VIRAL CYTOPATHIC EFFECT. NO FUNGAL ORGANISMS IDENTIFIED WITH PAS STAIN. D. COLON, PROXIMAL TRANSVERSE, POLYPS, POLYPECTOMY: MULTIPLE FRAGMENTS OF TUBULAR ADENOMA. Electronically Signed Addison Hunt M.D. Gross Description A. Received in formalin, labeled "biopsy second portion of duodenum and duodenal bulb" are 3 small, irregular portions of soft tissue averaging 0.3 cm in greatest dimension. The specimens are submitted in toto in one cassette. B. Received in formalin, labeled "biopsy antrum" are 2 small, irregular portions of soft tissue measuring 0.1 and 0.5 cm in greatest dimension. The specimens are submitted in toto in one cassette. C. Received in formalin, labeled "biopsy distal esophagus" are 2 small, irregular portions of soft tissue averaging 0.1 cm in greatest dimension. The specimens are submitted in toto in one cassette. D. Received in formalin, labeled "polyps proximal transverse colon" are 2 small, irregular portions of soft tissue measuring 0.3 and 0.4 cm. in greatest dimension. The specimens are submitted in toto in one cassette. 07/06/201707/06/2017
== END 2017-07-06 11:41 | DRG 872 ==
LOC: JER 12:55 → JERBED 15:36 → J5S 16:55
PROVIDERS: ADMIT Specialist; ATTEND Internal Medicine
PROC: 0DB98ZX Excision of Duodenum, Via Natural or Artificial Opening Endoscopic, Diagnostic (ICD-10-PCS; 2017-07-03)
PROC: 0DB58ZX Excision of Esophagus, Via Natural or Artificial Opening Endoscopic, Diagnostic (ICD-10-PCS; 2017-07-03)
PROC: 0DB78ZX Excision of Stomach, Pylorus, Via Natural or Artificial Opening Endoscopic, Diagnostic (ICD-10-PCS; 2017-07-03)
PROC: 0DBL8ZX Excision of Transverse Colon, Via Natural or Artificial Opening Endoscopic, Diagnostic (ICD-10-PCS; principal; 2017-07-03 12:00)
DX: A41.9 Sepsis, unspecified organism (principal); N17.9 Acute kidney failure, unspecified; N13.30 Unspecified hydronephrosis; N39.0 Urinary tract infection, site not specified; M19.90 Unspecified osteoarthritis, unspecified site; E03.9 Hypothyroidism, unspecified; N20.0 Calculus of kidney; E88.09 Other disorders of plasma-protein metabolism, not elsewhere classified; M54.5 Low back pain; D50.9 Iron deficiency anemia, unspecified; K44.9 Diaphragmatic hernia without obstruction or gangrene; K29.40 Chronic atrophic gastritis without bleeding; K57.30 Diverticulosis of large intestine without perforation or abscess without bleeding; K63.5 Polyp of colon; K64.8 Other hemorrhoids; B96.20 Unspecified Escherichia coli [E. coli] as the cause of diseases classified elsewhere; I12.9 Hypertensive chronic kidney disease with stage 1 through stage 4 chronic kidney disease, or unspecified chronic kidney disease; N18.9 Chronic kidney disease, unspecified
CPT/HCPCS: 36415; 71010-TC; 74020-TC; 74176-TC; 76775-TC; 80048; 80053; 81003; 81015; 82272; 82310; 82553; 82607; 82728; 82746; 83540; 83550; 83735; 83883; 83970; 84100; 84155; 84165; 84443; 84484; 84550; 85025; 85044; 85610; 87040; 87086; 87186; 88305-TC; 93005; 93010; 97116-GP; 97161-GP; 99285-25; J0475; J1644

== ENCOUNTER 2017-08-03 13:06 | Inpatient (IN) | payer MEDICARE ==
[2017-08-03 14:36] LABS: URINE APPEARANCE CLEAR; URINE BILIRUBIN NEGATIVE (NEGATIVE); URINE BLOOD NEGATIVE (NEGATIVE); URINE COLOR STRAW; URINE GLUCOSE (UA) NEGATIVE (NEGATIVE); URINE KETONE NEGATIVE (NEGATIVE); URINE NITRITE NEGATIVE (NEGATIVE); URINE PROTEIN NEGATIVE (NEGATIVE); URINE UROBILINOGEN NEGATIVE mg/dL (0.2-1.0)
--- NOTE | 2017-08-03 14:52 | PDOC ---
History of Present Illness - General History Source: Patient, Family (daughter was at bedside) Exam Limitations: No Limitations - History of Present Illness Initial Comments: 08/03/17 14:54 A 87 y/o F with a significant pmhx of anemia presents for a low Hgb and elevated Creatinine. The patient was d/c from [facility] 3 weeks ago after being treated for a UTI. She has then been at a rehab facility ([facility]). This past Thursday, the patient's Hgb was about 7.1. Repeat Hgb this morning was 8.8, with an elevated creatinine around 1.6 The patient is followed by Dr. Jewel Nassar. The patient is asymptomatic. She denies fever, chills, n/v/c/d, weakness, dizziness, LOC, CP, SOB, abd pain, hematuria or hematochezia. Patient takes iron supplements and always has dark stools. Daughter said that the usp notified them that the patient had blood in her stool. Timing/Duration: unsure Severity: mild Associated Symptoms: reports: denies symptoms <Charles Aponte - Last Filed: 08/03/17 18:34> <Rosalina Wheeler - Last Filed: 08/03/17 18:36> - General Chief Complaint: Blood Transfusion Stated Complaint: POSS UTI Time Seen by Provider: 08/03/17 13:44 Past History - Past Medical History Anemia: Yes HTN: Yes Thyroid Disease: Yes (hypothyroidism) - Surgical History Appendectomy: Yes Cholecystectomy: Yes Other Surgical History: 08/03/17 14:59 hysterectomy - Suicide/Smoking/Psychosocial Hx Smoking Status: No Smoking History: Never smoked Have you smoked in the past 12 months: No Number of Cigarettes Smoked Daily: 0 Hx Alcohol Use: No Drug/Substance Use Hx: No Hx Substance Use Treatment: No <Charlse Aponte - Last Filed: 08/03/17 18:34> <Rosalina Wheeler - Last Filed: 08/03/17 18:36> - Past Medical History Allergies/Adverse Reactions: Allergies Allergy/AdvReac Type Severity Reaction Status Date / Time No Known Allergies Allergy Verified 06/27/17 13:28 Home Medications: Ambulatory Orders Tramadol HCl 50 mg PO TID PRN #10 tablet MDD 3 10/14/16 Acetaminophen [Tylenol .Regular Strength -] 650 mg PO Q4H PRN #0 tablet Amlodipine Besylate [Norvasc -] 10 mg PO DAILY tablet 07/06/17 Ascorbic Acid [Vitamin C -] 500 mg PO BID tablet 07/06/17 Ferrous Sulfate [Feosol] 325 mg PO DAILY #30 tab 07/06/17 Meclizine HCl [Antivert -] 25 mg PO Q6H PRN #0 tablet 07/06/17 Polyethylene Glycol 3350 [Miralax 119 gm Btl -] 17 gm PO DAILY PRN #1 bottle 09/11 Apple Cider Vinegar 300 mg PO DAILY 08/03/17 Atenolol [Tenormin -] 50 mg PO DAILY 08/03/17 Docusate Sodium [Colace -] 200 mg PO HS 08/03/17 Levothyroxine [Synthroid -] 75 mcg PO 0600 08/03/17 Mirtazapine [Remeron -] 15 mg PO DAILY 08/03/17 Omeprazole 20 mg PO DAILY 08/03/17 Review of Systems - Review of Systems Is the patient limited Turkish proficient: No Constitutional: No: Chills, Fever, Loss of Appetite, Malaise, Weakness Respiratory: No: Shortness of Breath Cardiac (ROS): No: Chest Pain, Lightheadedness, Syncope ABD/GI: No: Constipated, Diarrhea, Nausea, Poor Appetite, Rectal Bleeding : Yes: Frequency. No: Burning, Dysuria, Hematuria, Pain, Urgency All Other Systems: Reviewed and Negative <Charles Aponte - Last Filed: 08/03/17 18:34> *Physical Exam - Vital Signs Last Vital Signs Temp Pulse Resp BP Pulse Ox 97.9 F 55 L 20 184/62 96 08/03/17 13:46 08/03/17 13:46 08/03/17 13:46 08/03/17 13:46 08/03/17 13:46 - Physical Exam General Appearance: Yes: Nourished, Appropriately Dressed Respiratory/Chest: positive: Lungs Clear, Normal Breath Sounds Cardiovascular: positive: Regular Rhythm, S1, S2, Bradycardia Gastrointestinal/Abdominal: positive: Normal Bowel Sounds, Tender (LUQ), Soft, Protuberent Extremity: positive: Normal Inspection <Charles Aponte - Last Filed: 08/03/17 18:34> - Vital Signs Last Vital Signs Temp Pulse Resp BP Pulse Ox 97.9 F 55 L 20 184/62 96 08/03/17 13:46 08/03/17 13:46 08/03/17 13:46 08/03/17 13:46 08/03/17 13:46 <Rosalina Wheeler - Last Filed: 08/03/17 18:36> ED Treatment Course - LABORATORY CBC & Chemistry Diagram: 08/03/17 15:45 08/03/17 15:51 - ADDITIONAL ORDERS Additional order review: Laboratory Results 08/03/17 14:02 Urine Color Straw Urine Appearance Clear Urine pH 6.0 Urine Protein Negative Urine Glucose (UA) Negative Urine Ketones Negative Urine Blood Negative Urine Nitrite Negative Urine Bilirubin Negative Urine Urobilinogen Negative <Charles Aponte - Last Filed: 08/03/17 18:34> - LABORATORY CBC & Chemistry Diagram: 08/03/17 15:45 08/03/17 15:51 - ADDITIONAL ORDERS Additional order review: Laboratory Results 08/03/17 08/03/17 08/03/17 15:51 15:45 15:45 PT with INR 11.00 INR 1.00 Sodium 140 Potassium 4.2 Chloride 108 H Carbon Dioxide 25 Anion Gap 7 L BUN 22 H Creatinine 1.3 H Creat Clearance w eGFR 38.66 Random Glucose 90 Calcium 8.6 Total Bilirubin 0.3 D AST 11 L ALT 12 D Alkaline Phosphatase 74 Creatine Kinase 67 Troponin I < 0.02 B-Natriuretic Peptide 1144.04 H Total Protein 6.0 L Albumin 3.0 L Urine Color Urine Appearance Urine pH Ur Specific [place] Urine Protein Urine Glucose (UA) Urine Ketones Urine Blood Urine Nitrite Urine Bilirubin Urine Urobilinogen Ur Leukocyte Esterase Blood Type O POSITIVE Antibody Screen Negative Crossmatch See Detail 08/03/17 14:02 PT with INR INR Sodium Potassium Chloride Carbon Dioxide Anion Gap BUN Creatinine Creat Clearance w eGFR Random Glucose Calcium Total Bilirubin AST ALT Alkaline Phosphatase Creatine Kinase Troponin I B-Natriuretic Peptide Total Protein Albumin Urine Color Straw Urine Appearance Clear Urine pH 6.0 Ur Specific [place] 1.010 Urine Protein Negative Urine Glucose (UA) Negative Urine Ketones Negative Urine Blood Negative Urine Nitrite Negative Urine Bilirubin Negative Urine Urobilinogen Negative Ur Leukocyte Esterase Negative Blood Type Antibody Screen Crossmatch 08/03/17 15:45 RBC 2.74 L MCV 96.3 H MCHC 33.4 RDW 19.6 H D MPV 8.0 Neutrophils % 53.3 D Lymphocytes % 23.7 D Monocytes % 13.3 H Eosinophils % 8.9 H D Basophils % 0.8 <Rosalina Wheeler - Last Filed: 08/03/17 18:36> *DC/Admit/Observation/Transfer - Discharge Dispostion Admit: Yes <Charles Aponte - Last Filed: 08/03/17 18:34> <Rosalina Wheeler - Last Filed: 08/03/17 18:36> Diagnosis at time of Disposition: Anemia Pneumonia Qualifiers: Pneumonia type: due to unspecified organism Laterality: unspecified laterality Lung location: unspecified part of lung Qualified Code(s): J18.9 - Pneumonia, unspecified organism - Discharge Dispostion Condition at time of disposition: Unchanged/Unknown - Referrals Referrals: Jewel Nassar MD [Primary Care Provider] -
[2017-08-03 16:19] LABS: BASOPHIL 0.8 % (0-2.0); EOSINOPHIL 8.9 % (0-4.5); MCH 32.2 pg (25.7-33.7); MCHC 33.4 g/dl (32.0-36.0); MEAN CELL VOLUME 96.3 fl (80-96); NEUTROPHILS 53.3 % (42.8-82.8); PLATELET COUNT 298 K/MM3 (134-434); RDW 19.6 % (11.6-15.6); WHITE BLOOD COUNT 5.6 K/mm3 (4.0-10.0)
[2017-08-03 16:23] LABS: ANION GAP 7 (8-16); BILIRUBIN,TOTAL 0.3 mg/dL (0.2-1.0); CALCIUM 8.6 mg/dL (8.5-10.1); CO2 25 mmol/L (21-32); CREATININE 1.3 mg/dL (0.55-1.02); GLUCOSE,RANDOM 90 mg/dL (74-106); SGOT/AST 11 U/L (15-37); SGPT/ALT 12 U/L (12-78)
[2017-08-03 16:25] LABS: ALK PHOS 74 U/L (45-117); CPK 67 IU/L (26-192); TROPONIN I < 0.02 ng/ml (0.00-0.05)
[2017-08-03 17:15] LABS: URINE LEUK ESTERASE Negative (NEGATIVE)
[2017-08-03] MEDS ORDERED: CEFTRIAXONE 1 GM in DEXTROSE 5%-WATER - 50 ML IVPB ONE (18:33)
[2017-08-03] MEDS ORDERED: AZITHROMYCIN IVPB 500 MG in DEXTROSE 5%-WATER - 250 ML IVPB ONE (18:33)
[2017-08-03] MEDS ORDERED: AZITHROMYCIN IVPB 250 ML IVPB ONE (19:09)
[2017-08-03] MEDS ORDERED: CEFTRIAXONE 50 ML ONE (19:09)
[2017-08-03] MEDS ORDERED: ACETAMINOPHEN 325 MG TABLET (FP) PO PRN (19:23)
[2017-08-03] MEDS ORDERED: POLYETHYLENE GLYCOL 3350 119 GM BTL PO PRN (19:27)
[2017-08-03] MEDS ORDERED: MECLIZINE HCL 25 MG TABLET (FP) PO PRN (19:27)
[2017-08-03] MEDS ORDERED: SODIUM CHLORIDE 1,000 ML IV SCH (19:30)
--- NOTE | 2017-08-03 19:49 | PN ---
Teaching Attending Note Name of Resident: Azalia Dukes ATTENDING PHYSICIAN STATEMENT I saw and evaluated the patient. I reviewed the resident's note and discussed the case with the resident. I agree with the resident's findings and plan as documented. SUBJECTIVE: 87 yo F with pmhx of htn, anemia on iron (refused colo/egd in , appendectomy, choleycystectomy, vertigo, CAD, HLD, GERD, anxiety, hypothyriodism , vit. d def, l. sided ptosis, who presents from [facility] w hgb 7.1 in thier labs from this past Thursday. She DENIES any chest pain, pressure, dizziness, lightheadedness or shortness of breath. States he stoold are dark due to iron and she has not noticed any bright red blood. OBJECTIVE: Physical: VS: Vital Signs Period Temp Pulse Resp BP Sys/[place] Pulse Ox Last 24 Hr 97.9 F-97.9 F 55-55 20-20 183-184/62-65 96-97 GEN: NAD, resting in bed, able to speak full sentences HEENT: NCAT, PERRL, throat without erythema or exudates CARD: RRR S1, S2 RESP: Mildly decreased breath sounds at bases ABD: BSx4, NTD to palpation EXT: +2 pitting edema, bilateral and equal Rectal- Deferred by pt. CBCD WBC 5.6 K/mm3 (4.0-10.0) D 08/03/17 15:45 RBC 2.74 M/mm3 (3.60-5.2) L 08/03/17 15:45 Hgb 8.8 GM/dL (10.7-15.3) L 08/03/17 15:45 Hct 26.4 % (32.4-45.2) L 08/03/17 15:45 MCV 96.3 fl (80-96) H 08/03/17 15:45 MCHC 33.4 g/dl (32.0-36.0) 08/03/17 15:45 RDW 19.6 % (11.6-15.6) H D 08/03/17 15:45 Plt Count 298 K/MM3 (134-434) D 08/03/17 15:45 MPV 8.0 fl (7.5-11.1) 08/03/17 15:45 CMP Sodium 140 mmol/L (136-145) 08/03/17 15:51 Potassium 4.2 mmol/L (3.5-5.1) 08/03/17 15:51 Chloride 108 mmol/L (98-107) H 08/03/17 15:51 Carbon Dioxide 25 mmol/L (21-32) 08/03/17 15:51 Anion Gap 7 (8-16) L 08/03/17 15:51 BUN 22 mg/dL (7-18) H 08/03/17 15:51 Creatinine 1.3 mg/dL (0.55-1.02) H 08/03/17 15:51 Creat Clearance w eGFR 38.66 (>60) 08/03/17 15:51 Random Glucose 90 mg/dL (74-106) 08/03/17 15:51 Calcium 8.6 mg/dL (8.5-10.1) 08/03/17 15:51 Total Bilirubin 0.3 mg/dL (0.2-1.0) D 08/03/17 15:51 AST 11 U/L (15-37) L 08/03/17 15:51 ALT 12 U/L (12-78) D 08/03/17 15:51 Alkaline Phosphatase 74 U/L (45-117) 08/03/17 15:51 Total Protein 6.0 g/dl (6.4-8.2) L 08/03/17 15:51 Albumin 3.0 g/dl (3.4-5.0) L 08/03/17 15:51 CARDIAC ENZYMES Creatine Kinase 67 IU/L (26-192) 08/03/17 15:51 Troponin I < 0.02 ng/ml (0.00-0.05) 08/03/17 15:51 CXR- Left Basilar Opacity EKG: Pending Home Medications Medication Instructions Recorded Tramadol HCl 50 mg PO TID PRN #10 tablet MDD 3 10/14/16 Acetaminophen [Tylenol .Regular 650 mg PO Q4H PRN #0 tablet 07/06/17 Strength -] Amlodipine Besylate [Norvasc -] 10 mg PO DAILY tablet 07/06/17 Ascorbic Acid [Vitamin C -] 500 mg PO BID tablet 07/06/17 Ferrous Sulfate [Feosol] 325 mg PO DAILY #30 tab 07/06/17 Meclizine HCl [Antivert -] 25 mg PO Q6H PRN #0 tablet 07/06/17 Polyethylene Glycol 3350 [Miralax 17 gm PO DAILY PRN #1 bottle 07/06/17 119 gm Btl -] Apple Cider Vinegar 300 mg PO DAILY 08/03/17 Atenolol [Tenormin -] 50 mg PO DAILY 08/03/17 Docusate Sodium [Colace -] 200 mg PO HS 08/03/17 Levothyroxine [Synthroid -] 75 mcg PO 0600 08/03/17 Mirtazapine [Remeron -] 15 mg PO DAILY 08/03/17 Omeprazole 20 mg PO DAILY 08/03/17 ASSESSMENT AND PLAN: 87 yo F with pmhx of htn, anemia on iron (refused colo/egd in , appendectomy, choleycystectomy, vertigo, CAD, HLD, GERD, anxiety, hypothyriodism , vit. d def, l. sided ptosis, who presents with anemia, found to have a pneumonia 1.) Pneumonia- - Given Cef/Azithro in ED, if worsening can broaden coverage for HCAP - Urine Ags - Flu swab 2.) LE edema - Inc BNP - Echo complete - Lasix - Trend trop/ekg - May be due to Norvasc 3.) Normocytic Anemia - Fe Studies/B12/folate if not already done - Stool Occult - EGD/[place] done in 07/12 - Tranfuse hgb <7 4.) HTN - Hold Norvasc, can try Hctz 5.) Hypothyriodism - Chk TSH - C/w Synthroid 6.) CAD? - C/w home meds 7.) GILA/?CKD - Cr improving - Monitor 8.) Dvt Ppx - SCDs Place in Med-Sx
[2017-08-03] MEDS ORDERED: AZITHROMYCIN IVPB 250 MG in DEXTROSE 5%-WATER - 250 ML IVPB ONE (19:50)
[2017-08-03] MEDS ORDERED: FUROSEMIDE 40 MG/4 ML INJECTABLE VIAL IVPUSH ONE (19:54)
--- NOTE | 2017-08-03 19:57 | HP ---
CHIEF COMPLAINT: sent over from [place] due to low blood count PCP: Dr. Nassar HISTORY OF PRESENT ILLNESS: This is a 87 year old female sent over from [place] due to hemoglobin 7.1. Repeat hemoglobin in ER reveals >8. She denies lightheadedness weakness, chest pains, palpitations, dyspnea on exertion, fever, chills, sore throat, urinary symptoms. Patient does endorse non productive cough that started a few days ago , increased bilateral leg swelling, and dark stools. Ms. Richards was recently treated here a [facility] fro UTI, GILA and inability to ambulate due to arthritis. During previous visit, she was also anemic, seen by gastroenterology but refused a colonoscopy. She has never had colonoscopy/EGD, no family hx of colon cancer. ER course was notable for: CXR in left basilar infiltrate Recent Travel: no PAST MEDICAL HISTORY: Coronary artery disease, Hypertension, Hyperlipidemia, LVH, GERD, IBS, Chronic anxiety, Ch. LBP, Hypothyroidism. Breast nodule, urinary incontinence PAST SURGICAL HISTORY: cataract, appendectomy, hysterectomy Social History: Smoking:no Alcohol:no Drugs: no Family History: 2 sons, 2 daughters, no hx of [place] Allergies No Known Allergies Allergy (Verified 06/27/17 13:28) HOME MEDICATIONS: Home Medications Medication Instructions Recorded Tramadol HCl 50 mg PO TID PRN #10 tablet MDD 3 10/14/16 Acetaminophen [Tylenol .Regular 650 mg PO Q4H PRN #0 tablet 07/06/17 Strength -] Amlodipine Besylate [Norvasc -] 10 mg PO DAILY tablet 07/06/17 Ascorbic Acid [Vitamin C -] 500 mg PO BID tablet 07/06/17 Ferrous Sulfate [Feosol] 325 mg PO DAILY #30 tab 07/06/17 Meclizine HCl [Antivert -] 25 mg PO Q6H PRN #0 tablet 07/06/17 Polyethylene Glycol 3350 [Miralax 17 gm PO DAILY PRN #1 bottle 07/06/17 119 gm Btl -] Apple Cider Vinegar 300 mg PO DAILY 08/03/17 Atenolol [Tenormin -] 50 mg PO DAILY 08/03/17 Docusate Sodium [Colace -] 200 mg PO HS 08/03/17 Levothyroxine [Synthroid -] 75 mcg PO 0600 08/03/17 Mirtazapine [Remeron -] 15 mg PO DAILY 08/03/17 Omeprazole 20 mg PO DAILY 08/03/17 REVIEW OF SYSTEMS CONSTITUTIONAL: Absent: fever, chills, diaphoresis, generalized weakness, malaise, loss of appetite, weight change HEENT: Absent: rhinorrhea, nasal congestion, throat pain, throat swelling, difficulty swallowing, mouth swelling, ear pain, eye pain, visual changes CARDIOVASCULAR: Absent: chest pain, syncope, palpitations, irregular heart rate, lightheadedness , peripheral edema RESPIRATORY: Positive: cough Absent: shortness of breath, dyspnea with exertion, orthopnea, wheezing, stridor , hemoptysis GASTROINTESTINAL: Absent: abdominal pain, abdominal distension, nausea, vomiting, diarrhea, constipation, melena, hematochezia GENITOURINARY: Absent: dysuria, frequency, urgency, hesitancy, hematuria, flank pain, genital pain MUSCULOSKELETAL: Absent: myalgia, arthralgia, joint swelling, back pain, neck pain SKIN: Absent: rash, itching, pallor HEMATOLOGIC/IMMUNOLOGIC: Absent: easy bleeding, easy bruising, lymphadenopathy, frequent infections ENDOCRINE: Absent: unexplained weight gain, unexplained weight loss, heat intolerance, cold intolerance NEUROLOGIC: Absent: headache, focal weakness or paresthesias, dizziness, unsteady gait, seizure, mental status changes, bladder or bowel incontinence PSYCHIATRIC: Absent: anxiety, depression, suicidal or homicidal ideation, hallucinations. PHYSICAL EXAMINATION Vital Signs - 24 hr 08/03/17 08/03/17 13:46 19:48 Temperature 97.9 F 97.9 F Pulse Rate 55 L Pulse Rate [ 55 L Apical] Respiratory 20 20 Rate Blood Pressure 184/62 Blood Pressure 183/65 [Left Arm] O2 Sat by Pulse 96 97 Oximetry (%) GENERAL: Awake, alert, and fully oriented, in no acute distress. HEAD: Normal with no signs of trauma. EYES: Pupils equal, round and reactive to light, extraocular movements intact, sclera anicteric, conjunctiva clear. No lid lag. EARS, NOSE, THROAT: Ears normal, nares patent, oropharynx clear without exudates. Moist mucous membranes. NECK: Normal range of motion, supple without lymphadenopathy, right JVD, or masses. LUNGS: Breath sounds equa. No wheezes, crackles throughout bilateral lung hagan. No accessory muscle use. HEART: Regular rate and rhythm, normal S1 and S2 without murmur, rub or gallop. ABDOMEN: Soft, nontender, not distended, normoactive bowel sounds, no guarding, no rebound, no masses. No hepatomegaly or splenomegaly. MUSCULOSKELETAL: Normal range of motion at all joints. No bony deformities or tenderness. No CVA tenderness. UPPER EXTREMITIES: 2+ pulses, warm, well-perfused. No cyanosis. No clubbing. No peripheral edema. LOWER EXTREMITIES: 2+ pulses, warm, well-perfused. No calf tenderness. bilateral 1+peripheral edema. NEUROLOGICAL: Cranial nerves II-XII intact. Normal speech. PSYCHIATRIC: Cooperative. Good eye contact. Appropriate mood and affect. SKIN: Warm, dry, normal turgor, no rashes or lesions noted, normal capillary refill. Laboratory Results - last 24 hr 08/03/17 08/03/17 08/03/17 14:02 15:45 15:45 WBC 5.6 D RBC 2.74 L Hgb 8.8 L Hct 26.4 L MCV 96.3 H MCH 32.2 MCHC 33.4 RDW 19.6 H D Plt Count 298 D MPV 8.0 Neutrophils % 53.3 D Lymphocytes % 23.7 D Monocytes % 13.3 H Eosinophils % 8.9 H D Basophils % 0.8 PT with INR 11.00 INR 1.00 Sodium Potassium Chloride Carbon Dioxide Anion Gap BUN Creatinine Creat Clearance w eGFR Random Glucose Calcium Total Bilirubin AST ALT Alkaline Phosphatase Creatine Kinase Troponin I B-Natriuretic Peptide Total Protein Albumin Urine Color Straw Urine Appearance Clear Urine pH 6.0 Ur Specific [place] 1.010 Urine Protein Negative Urine Glucose (UA) Negative Urine Ketones Negative Urine Blood Negative Urine Nitrite Negative Urine Bilirubin Negative Urine Urobilinogen Negative Ur Leukocyte Esterase Negative Blood Type Antibody Screen Crossmatch Spec Expiration Date 08/03/17 08/03/17 08/03/17 15:45 15:51 19:13 WBC RBC Hgb Hct MCV MCH MCHC RDW Plt Count MPV Neutrophils % Lymphocytes % Monocytes % Eosinophils % Basophils % PT with INR INR Sodium 140 Potassium 4.2 Chloride 108 H Carbon Dioxide 25 Anion Gap 7 L BUN 22 H Creatinine 1.3 H Creat Clearance w eGFR 38.66 Random Glucose 90 Calcium 8.6 Total Bilirubin 0.3 D AST 11 L ALT 12 D Alkaline Phosphatase 74 Creatine Kinase 67 Troponin I < 0.02 B-Natriuretic Peptide 1144.04 H Total Protein 6.0 L Albumin 3.0 L Urine Color Urine Appearance Urine pH Ur Specific [place] Urine Protein Urine Glucose (UA) Urine Ketones Urine Blood Urine Nitrite Urine Bilirubin Urine Urobilinogen Ur Leukocyte Esterase Blood Type O POSITIVE O POSITIVE Antibody Screen Negative Cancelled Crossmatch See Detail Spec Expiration Date Cancelled ASSESSMENT/PLAN: This is a 87 year old female with a past medical history above, sent over for anemia, found to have pneumonia. #PNA: -ceftriaxone/azithro IV -urine antigens -incentive spirometor #normocytic anemia; chronic -at baseline; if drops below 7 can transfuse -colonoscopy/egd last visit; 07/12; revealed diverticulosis, hemorrhoids, tubular polyps; rec repeat colonoscopy 3 years -f/u GI as outpatient -iron studies -FOBT #bilataral leg swelling -trend trop -ecg -echo -d/c norvasc -start HCTZ -1x lasix 40mg IVP #elevated creatinine, looks to be chronic; -at baseline #HTN #HLD; FEN: FLuids:po Electrolytes:wnl Diet:low Na VTE prophylaxis: scd GI prophylaxis protonix Dispo med surg Visit type - Emergency Visit Emergency Visit: Yes ED Registration Date: 08/03/17 Care time: The patient presented to the Emergency Department on the above date and was hospitalized for further evaluation of their emergent condition. - New Patient This patient is new to me today: Yes Date on this admission: 08/04/17 - Critical Care Critical Care patient: No
[2017-08-03] MEDS ORDERED: ASCORBIC ACID 500 MG TABLET (FP) PO SCH (22:00)
[2017-08-03] MEDS ORDERED: DOCUSATE SODIUM 100 MG CAPSULE (FP) PO SCH (22:00)
[2017-08-03] MEDS ORDERED: FUROSEMIDE 40 MG/4 ML INJECTABLE VIAL ONE (22:43)
[2017-08-03 23:13] LABS: MCH 31.8 pg (25.7-33.7); MEAN CELL VOLUME 96.2 fl (80-96); MEAN PLT VOLUME 7.6 fl (7.5-11.1); PLATELET COUNT 290 K/MM3 (134-434); RDW 19.5 % (11.6-15.6); WHITE BLOOD COUNT 5.8 K/mm3 (4.0-10.0)
[2017-08-04 00:16] VITALS: BMI 32.4
[2017-08-04] MEDS ORDERED: HEPARIN NA (PORCINE) 5,000 UNITS/ML 1ML VIAL SQ SCH (06:00)
[2017-08-04] MEDS: LEVOTHYROXINE NA 75 MCG TABLET (FP) PO SCH (06:10)
--- NOTE | 2017-08-04 06:10 | HOSP ---
Subjective - Review of Symptoms Events since last encounter: PRBCs not given earlier and currently on hold as Hgb > 7. Will continue to monitor for need for transfusion. Physical Examination Vital Signs: Vital Signs Temperature 98.2 F 08/04/17 02:00 Pulse Rate 64 08/04/17 02:00 Respiratory Rate 20 08/04/17 02:00 Blood Pressure 151/57 08/04/17 02:00 O2 Sat by Pulse Oximetry (%) 94 L 08/04/17 00:38 Labs: CBC, BMP 08/03/17 22:58 Visit type - Emergency Visit Emergency Visit: Yes ED Registration Date: 08/03/17 Care time: The patient presented to the Emergency Department on the above date and was hospitalized for further evaluation of their emergent condition. - New Patient This patient is new to me today: Yes Date on this admission: 08/04/17 - Critical Care Critical Care patient: No
[2017-08-04 08:43] LABS: BASOPHIL 1.2 % (0-2.0); EOSINOPHIL 6.6 % (0-4.5); MCH 31.8 pg (25.7-33.7); MEAN CELL VOLUME 96.3 fl (80-96); MEAN PLT VOLUME 7.6 fl (7.5-11.1); NEUTROPHILS 57.8 % (42.8-82.8); PLATELET COUNT 323 K/MM3 (134-434); RDW 19.6 % (11.6-15.6)
[2017-08-04 09:03] LABS: ANION GAP 9 (8-16); CO2 25 mmol/L (21-32); CREATININE 1.4 mg/dL (0.55-1.02); GLUCOSE,RANDOM 84 mg/dL (74-106); MAGNESIUM 2.4 mg/dL (1.8-2.4); PHOSPHOROUS 3.9 mg/dL (2.5-4.9)
[2017-08-04] MEDS ORDERED: FERROUS SO4 325 MG TABLET (FP) PO SCH (10:00)
[2017-08-04] MEDS ORDERED: amLODIPine BESYLATE 5 MG TABLET (FP) PO SCH (10:00)
[2017-08-04] MEDS ORDERED: ATENOLOL 50 MG TABLET (FP) PO SCH (10:00)
[2017-08-04] MEDS ORDERED: CEFTRIAXONE 1 GM in DEXTROSE 5%-WATER - 100 ML IVPB SCH (10:00)
[2017-08-04] MEDS ORDERED: PT OWN MED DRAWER 7, Y5N ONE (10:16)
[2017-08-04] MEDS ORDERED: CEFTRIAXONE 1 G/50 ML PREMIX 50 ML IVPB SCH ×2 (10:40→10:45)
[2017-08-04] MEDS: ATENOLOL 50 MG TABLET (FP) PO SCH (10:54)
[2017-08-04] MEDS: ASCORBIC ACID 500 MG TABLET (FP) PO SCH ×2 (10:54→21:02)
[2017-08-04] MEDS: HYDROCHLOROTHIAZIDE 25 MG TABLET (FP) PO SCH ×2 (10:54→12:23)
--- NOTE | 2017-08-04 12:43 | PN ---
Progress Note, Physician Chief Complaint: Ms Richards says she is doing well. She has chronic pain in her legs that is unchanged. No cp, sob, n/v. - Current Medication List Current Medications: Active Medications Acetaminophen (Tylenol -) 650 mg PO Q4H PRN PRN Reason: FEVER OR PAIN Ascorbic Acid (Vitamin C -) 500 mg PO BID [facility] Last Admin: 08/04/17 10:54 Dose: 500 mg Atenolol (Tenormin -) 50 mg PO DAILY [facility] Last Admin: 08/04/17 10:54 Dose: 50 mg Docusate Sodium (Colace -) 200 mg PO HS [facility] Ferrous Sulfate (Feosol -) 325 mg PO DAILY@1300 [facility] Levothyroxine Sodium (Synthroid -) 75 mcg PO DAILY@0700 [facility] Last Admin: 08/04/17 06:10 Dose: 75 mcg Meclizine HCl (Antivert -) 25 mg PO Q6H PRN PRN Reason: DIZZINESS Mirtazapine (Remeron -) 15 mg PO HS [facility] Polyethylene Glycol (Miralax (For Daily Use) -) 17 gm PO DAILY PRN PRN Reason: CONSTIPATION Tramadol HCl (Ultram -) 50 mg PO TID PRN PRN Reason: PAIN LEVEL 6-10 - Objective Vital Signs: Vital Signs Temperature 37.0 C 08/04/17 08:00 Pulse Rate 54 L 08/04/17 08:00 Respiratory Rate 18 08/04/17 08:00 Blood Pressure 139/61 08/04/17 08:00 O2 Sat by Pulse Oximetry (%) 95 08/04/17 04:00 Constitutional: Yes: Well Nourished, No Distress, Calm Cardiovascular: Yes: Regular Rate and Rhythm. No: Gallop, Murmur, Rub Respiratory: Yes: Regular, CTA Bilaterally, On Nasal O2. No: Rales, Rhonchi, Wheezes Gastrointestinal: Yes: Normal Bowel Sounds, Soft. No: Distention, Tenderness Extremities: Yes: WNL Edema: No Labs: CBC, BMP 08/04/17 07:15 08/04/17 07:15 INR, PTT INR 1.00 (0.82-1.09) 08/03/17 15:45 Problem List - Problems (1) Pneumonia Assessment/Plan: -I am not convinced patient has pneumonia -was on full course of antibiotics here, per daughter antibiotics was continued at [facility] -patient with possible infiltrate on chest x-ray, but no other signs of sepsis -no leukocytosis, no fevers, no cough, no malaise -will obtain a PA/Lat chest x-ray to evaluate possible infiltrate -since urine antigens negative and no signs of sepsis, will stop antibiotics -? hypoxia, obtain pre and post oxygen saturations Code(s): J18.9 - PNEUMONIA, UNSPECIFIED ORGANISM Qualifiers: Pneumonia type: due to unspecified organism Laterality: unspecified laterality Lung location: unspecified part of lung Qualified Code(s): J18.9 - Pneumonia, unspecified organism; J18.9 - Pneumonia, unspecified organism (2) Anemia Assessment/Plan: -at baseline -continue iron supplementation Code(s): D64.9 - ANEMIA, UNSPECIFIED Qualifiers: (3) Acute kidney failure Assessment/Plan: -patient not with AKF -currently is at baseline -will hold HCTZ, suspect outpatient rise in creatinine secondary to HCTZ -monitor Code(s): N17.9 - ACUTE KIDNEY FAILURE, UNSPECIFIED Qualifiers: Acute renal failure type: unspecified Qualified Code(s): N17.9 - Acute kidney failure, unspecified; N17.9 - Acute kidney failure, unspecified; N17.9 - Acute kidney failure, unspecified (4) Hypertension Assessment/Plan: -continue atenolol -monitor Code(s): I10 - ESSENTIAL (PRIMARY) HYPERTENSION
[2017-08-04] MEDS: FERROUS SO4 325 MG TABLET (FP) PO SCH (13:48)
[2017-08-04] MEDS: traMADol HCL 50 MG TABLET PO PRN (20:09)
[2017-08-04] MEDS: DOCUSATE SODIUM 100 MG CAPSULE (FP) PO SCH (21:01)
[2017-08-04] MEDS: MIRTAZAPINE 15 MG TABLET (FP) PO SCH (21:02)
--- NOTE | 2017-08-04 22:38 | EKG ---
Test Reason : Blood Pressure : / mmHG Vent. Rate : 052 BPM Atrial Rate : 052 BPM P-R Int : 218 ms QRS Dur : 086 ms QT Int : 468 ms P-R-T Axes : 060 035 040 degrees QTc Int : 435 ms BASELINE ARTIFACT SINUS BRADYCARDIA WITH 1ST DEGREE A-V BLOCK POSSIBLE LEFT ATRIAL ENLARGEMENT BORDERLINE ECG WHEN COMPARED WITH ECG OF 27-JUN-2017 14:19, [place] INTERVAL HAS INCREASED REPEAT EKG IF CLINICALLY INDICATED Confirmed by SANDRO REILLY MD ([id number]) on 08/04/2017 10:38:24 PM Referred By: Confirmed By:SANDRO REILLY MD
[2017-08-05 06:08] LABS: SERUM IRON 71 ug/dL (27-139); TOTAL IRON BINDING CAPACITY 208 ug/dL (250-450); UIBC 137 ug/dL (118-369)
[2017-08-05] MEDS: LEVOTHYROXINE NA 75 MCG TABLET (FP) PO SCH (06:16)
[2017-08-05 07:19] LABS: EOSINOPHIL 10.1 % (0-4.5); MCH 32.3 pg (25.7-33.7); MCHC 33.5 g/dl (32.0-36.0); MEAN CELL VOLUME 96.6 fl (80-96); MEAN PLT VOLUME 7.6 fl (7.5-11.1); NEUTROPHILS 42.5 % (42.8-82.8); PLATELET COUNT 297 K/MM3 (134-434); RDW 19.6 % (11.6-15.6); WHITE BLOOD COUNT 5.2 K/mm3 (4.0-10.0)
[2017-08-05 08:20] LABS: ANION GAP 10 (8-16); CALCIUM 8.3 mg/dL (8.5-10.1); CO2 25 mmol/L (21-32); CREATININE 1.5 mg/dL (0.55-1.02); GLUCOSE,RANDOM 78 mg/dL (74-106); MAGNESIUM 2.5 mg/dL (1.8-2.4); PHOSPHOROUS 3.9 mg/dL (2.5-4.9)
[2017-08-05] MEDS: ASCORBIC ACID 500 MG TABLET (FP) PO SCH ×2 (10:40→21:17)
[2017-08-05] MEDS: ATENOLOL 50 MG TABLET (FP) PO SCH (10:40)
[2017-08-05] MEDS: FERROUS SO4 325 MG TABLET (FP) PO SCH (11:29)
--- NOTE | 2017-08-05 13:13 | PN ---
Progress Note, Physician Chief Complaint: Ms Richards says she is doing well. Complains of being cold. No cp, sob, n/v. - Current Medication List Current Medications: Active Medications Acetaminophen (Tylenol -) 650 mg PO Q4H PRN PRN Reason: FEVER OR PAIN Ascorbic Acid (Vitamin C -) 500 mg PO BID [facility] Last Admin: 08/05/17 10:40 Dose: 500 mg Atenolol (Tenormin -) 50 mg PO DAILY [facility] Last Admin: 08/05/17 10:40 Dose: 50 mg Docusate Sodium (Colace -) 200 mg PO [facility] Last Admin: 08/04/17 21:01 Dose: 200 mg Ferrous Sulfate (Feosol -) 325 mg PO DAILY@1300 [facility] Last Admin: 08/04/17 13:48 Dose: 325 mg Levothyroxine Sodium (Synthroid -) 75 mcg PO DAILY@0700 [facility] Last Admin: 08/05/17 06:16 Dose: 75 mcg Meclizine HCl (Antivert -) 25 mg PO Q6H PRN PRN Reason: DIZZINESS Mirtazapine (Remeron -) 15 mg PO [facility] Last Admin: 08/04/17 21:02 Dose: 15 mg Polyethylene Glycol (Miralax (For Daily Use) -) 17 gm PO DAILY PRN PRN Reason: CONSTIPATION Tramadol HCl (Ultram -) 50 mg PO TID PRN PRN Reason: PAIN LEVEL 6-10 Last Admin: 08/04/17 20:09 Dose: 50 mg - Objective Vital Signs: Vital Signs Temperature 36.8 C 08/05/17 06:06 Pulse Rate 61 08/05/17 06:06 Respiratory Rate 21 08/05/17 06:06 Blood Pressure 145/60 08/05/17 06:06 O2 Sat by Pulse Oximetry (%) 95 08/04/17 22:00 Constitutional: Yes: Well Nourished, No Distress, Calm Cardiovascular: Yes: Regular Rate and Rhythm. No: Gallop, Murmur, Rub Respiratory: Yes: Regular, CTA Bilaterally. No: Rales, Rhonchi, Wheezes Gastrointestinal: Yes: Normal Bowel Sounds, Soft. No: Distention, Tenderness Extremities: Yes: WNL Edema: No Labs: CBC, BMP 08/05/17 06:20 08/05/17 06:20 INR, PTT INR 1.00 (0.82-1.09) 08/03/17 15:45 Problem List - Problems (1) Pneumonia Code(s): J18.9 - PNEUMONIA, UNSPECIFIED ORGANISM Qualifiers: Pneumonia type: due to unspecified organism Laterality: unspecified laterality Lung location: unspecified part of lung Qualified Code(s): J18.9 - Pneumonia, unspecified organism; J18.9 - Pneumonia, unspecified organism (2) Anemia Code(s): D64.9 - ANEMIA, UNSPECIFIED Qualifiers: (3) Acute kidney failure Code(s): N17.9 - ACUTE KIDNEY FAILURE, UNSPECIFIED Qualifiers: Acute renal failure type: unspecified Qualified Code(s): N17.9 - Acute kidney failure, unspecified; N17.9 - Acute kidney failure, unspecified; N17.9 - Acute kidney failure, unspecified (4) Hypertension Code(s): I10 - ESSENTIAL (PRIMARY) HYPERTENSION Assessment/Plan (1) Pneumonia Assessment/Plan: -repeat x-ray reviewed -still no other signs of infection -will not restart antibiotics unless other signs of sepsis Code(s): J18.9 - PNEUMONIA, UNSPECIFIED ORGANISM Qualifiers: Pneumonia type: due to unspecified organism Laterality: unspecified laterality Lung location: unspecified part of lung Qualified Code(s): J18.9 - Pneumonia, unspecified organism; J18.9 - Pneumonia, unspecified organism (2) Anemia Assessment/Plan: -decreased -transfuse 1 unit -hematology consult Code(s): D64.9 - ANEMIA, UNSPECIFIED Qualifiers: (3) Acute kidney failure Assessment/Plan: -holding HCTZ and ARB -creatinine increasing -nephrology consult Code(s): N17.9 - ACUTE KIDNEY FAILURE, UNSPECIFIED Qualifiers: Acute renal failure type: unspecified Qualified Code(s): N17.9 - Acute kidney failure, unspecified; N17.9 - Acute kidney failure, unspecified; N17.9 - Acute kidney failure, unspecified (4) Hypertension Assessment/Plan: -continue atenolol -monitor Code(s): I10 - ESSENTIAL (PRIMARY) HYPERTENSION
--- NOTE | 2017-08-05 16:27 | CONSULT ---
Consult Consult Specialty:: Hematology - History of Present Illness History of Present Illness: 87 yo F with pmhx of htn, anemia on iron , appendectomy, choleycystectomy, vertigo, CAD, HLD, GERD, anxiety, hypothyriodism, vit. d def, l. sided ptosis, who presents from [facility] w hgb 7.1 in thier labs from this past Thursday. She denies any chest pain, pressure, dizziness, lightheadedness or shortness of breath. States he stools are dark due to iron and she has not noticed any bright red blood. 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: Vertigo Cardio/Vascular: Yes: CAD, HTN, Hyperlipdemia, Other (LVH) Gastrointestinal: Yes: GERD, Hiatal Hernia, Irritable Bowel Disease Hepatobiliary: Yes: Other (gall bladder sludge) Renal/: Yes: Neurogenic Bladder Psych: Yes: Anxiety Musculoskeletal: Yes: Chronic low back pain, Osteoarthritis Endocrine: Yes: Hypothyroidism, Other (osteoporosis, vit d def) - Past Surgical History Past Surgical History: Yes: Appendectomy, Cataract Removal (bilateral), Hysterectomy (with BSO) - Alcohol/Substance Use Hx Alcohol Use: No - Smoking History Smoking history: Never smoked Have you smoked in the past 12 months: No Aproximately how many cigarettes per day: 0 - Social History 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 Home Medications - Allergies Allergies/Adverse Reactions: Allergies Allergy/AdvReac Type Severity Reaction Status Date / Time No Known Allergies Allergy Verified 06/27/17 13:28 - Home Medications Home Medications: Ambulatory Orders Tramadol HCl 50 mg PO TID PRN #10 tablet MDD 3 10/14/16 Acetaminophen [Tylenol .Regular Strength -] 650 mg PO Q4H PRN #0 tablet Amlodipine Besylate [Norvasc -] 10 mg PO DAILY tablet 07/06/17 Ascorbic Acid [Vitamin C -] 500 mg PO BID tablet 07/06/17 Ferrous Sulfate [Feosol] 325 mg PO DAILY #30 tab 07/06/17 Meclizine HCl [Antivert -] 25 mg PO Q6H PRN #0 tablet 07/06/17 Polyethylene Glycol 3350 [Miralax 119 gm Btl -] 17 gm PO DAILY PRN #1 bottle 09/11 Apple Cider Vinegar 300 mg PO DAILY 08/03/17 Atenolol [Tenormin -] 50 mg PO DAILY 08/03/17 Docusate Sodium [Colace -] 200 mg PO HS 08/03/17 Levothyroxine [Synthroid -] 75 mcg PO 0600 08/03/17 Mirtazapine [Remeron -] 15 mg PO DAILY 08/03/17 Omeprazole 20 mg PO DAILY 08/03/17 Family Disease History - Family Disease History Family Disease History: Other: Father ( 80's: unclear cause), Mother ( 49: unclear cause. ? liver problem), Son (2, 1 with parkinson's disease), Daughter (2, healthy) Physical Exam Vital Signs: Vital Signs Temperature 98.3 F 08/05/17 14:00 Pulse Rate 60 08/05/17 14:00 Respiratory Rate 17 08/05/17 14:00 Blood Pressure 152/66 08/05/17 14:00 O2 Sat by Pulse Oximetry (%) 95 08/04/17 22:00 Constitutional: Yes: Well Nourished, No Distress, Calm Eyes: Yes: Conjunctiva Clear, EOM Intact HENT: Yes: Atraumatic, Normocephalic Neck: Yes: Supple, Trachea Midline Cardiovascular: Yes: Regular Rate and Rhythm Respiratory: Yes: Regular, CTA Bilaterally Gastrointestinal: Yes: Normal Bowel Sounds, Soft Edema: No Neurological: Yes: Alert, Oriented Labs: CBC, BMP 08/05/17 06:20 08/05/17 06:20 Imaging - Results X-ray: Report Reviewed Assessment/Plan Reviewed Iron studies from the previous visit and this visit, Some mandaeism of iron stores noted. Will continue repletion of PO iron ,for blood transfusion today. Etiology of anemia, ?CKD ?underlying possible breast malignancy.Will await renal opine on ORI. supportive care for now. Needs breast mass biopsy as an out pt. Last visit CT a/p with no contrast was done and did not show any suspicious findings and also EGD and colonoscopy were unremarkable. will follow
[2017-08-05] MEDS: DOCUSATE SODIUM 100 MG CAPSULE (FP) PO SCH (21:17)
[2017-08-05] MEDS: MIRTAZAPINE 15 MG TABLET (FP) PO SCH (21:18)
--- NOTE | 2017-08-05 21:23 | CON.NEP ---
Consult Consult Specialty:: nephrology Referred by:: dr helms Reason for Consultation:: azotemia - History of Present Illness Chief Complaint: anemia. azotemia History of Present Illness: 87 y/o f admitted for eval of severe anemia, hgb 7 resident of a [place] she's referred for eval of azotemia she referred some episodes of lower abd discomfort but no urinary symptoms, no flank pains she is unclear if she had any prior problems. 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: Vertigo Cardio/Vascular: Yes: CAD, HTN, Hyperlipdemia, Other (LVH) Gastrointestinal: Yes: GERD, Hiatal Hernia, Irritable Bowel Disease Hepatobiliary: Yes: Other (gall bladder sludge) Renal/: Yes: Neurogenic Bladder Psych: Yes: Anxiety Musculoskeletal: Yes: Chronic low back pain, Osteoarthritis Endocrine: Yes: Hypothyroidism, Other (osteoporosis, vit d def) - Past Surgical History Past Surgical History: Yes: Appendectomy, Cataract Removal (bilateral), Hysterectomy (with BSO) - Alcohol/Substance Use Hx Alcohol Use: No - Smoking History Smoking history: Never smoked Have you smoked in the past 12 months: No Aproximately how many cigarettes per day: 0 - Social History 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 Home Medications - Allergies Allergies/Adverse Reactions: Allergies Allergy/AdvReac Type Severity Reaction Status Date / Time No Known Allergies Allergy Verified 06/27/17 13:28 - Home Medications Home Medications: Ambulatory Orders Tramadol HCl 50 mg PO TID PRN #10 tablet MDD 3 10/14/16 Acetaminophen [Tylenol .Regular Strength -] 650 mg PO Q4H PRN #0 tablet Amlodipine Besylate [Norvasc -] 10 mg PO DAILY tablet 07/06/17 Ascorbic Acid [Vitamin C -] 500 mg PO BID tablet 07/06/17 Ferrous Sulfate [Feosol] 325 mg PO DAILY #30 tab 07/06/17 Meclizine HCl [Antivert -] 25 mg PO Q6H PRN #0 tablet 07/06/17 Polyethylene Glycol 3350 [Miralax 119 gm Btl -] 17 gm PO DAILY PRN #1 bottle 09/11 Apple Cider Vinegar 300 mg PO DAILY 08/03/17 Atenolol [Tenormin -] 50 mg PO DAILY 08/03/17 Docusate Sodium [Colace -] 200 mg PO HS 08/03/17 Levothyroxine [Synthroid -] 75 mcg PO 0600 08/03/17 Mirtazapine [Remeron -] 15 mg PO DAILY 08/03/17 Omeprazole 20 mg PO DAILY 08/03/17 Family Disease History - Family Disease History Family Disease History: Other: Father ( 80's: unclear cause), Mother ( 49: unclear cause. ? liver problem), Son (2, 1 with parkinson's disease), Daughter (2, healthy) Review of Systems - Review of Systems Constitutional: reports: No Symptoms, Weakness (maybe) Eyes: reports: No Symptoms HENT: reports: No Symptoms Neck: reports: No Symptoms Cardiovascular: denies: Shortness of Breath Respiratory: denies: SOB Gastrointestinal: reports: Abdominal Pain (remote, and with no details, except it occurred in both lower q) Genitourinary: reports: Incontinence. denies: Dysuria, Flank Pain, Frequency, Urgency Breasts: reports: No Symptoms Reported Musculoskeletal: reports: No Symptoms Integumentary: reports: No Symptoms Endocrine: reports: No Symptoms Hematology/Lymphatic: reports: No Symptoms Psychiatric: reports: No Symptoms Nephrology Consult - Height Height: 5 ft - Weight Weight: 166 lb 3 oz - BMI Body Mass Index (BMI): 32.4 - Lab Results CBC,BMP: CBC, BMP 08/05/17 06:20 08/05/17 06:20 Anion Gap: Anion Gap Anion Gap 10 (8-16) 08/05/17 06:20 - Physical Examination Vital Signs: Vital Signs Temperature 98.6 F 08/05/17 20:34 Pulse Rate 68 08/05/17 20:34 Respiratory Rate 20 08/05/17 20:34 Blood Pressure 151/61 08/05/17 20:34 O2 Sat by Pulse Oximetry (%) 95 08/04/17 22:00 Constitutional: Yes: Well Nourished, No Distress, Calm Eyes: Yes: Conjunctiva Clear, EOM Intact, Ptosis HENT: Yes: WNL Neck: Yes: WNL Cardiovascular: Yes: WNL Respiratory: Yes: WNL Gastrointestinal: Yes: WNL Renal/: Yes: WNL Musculoskeletal: Yes: WNL Extremities: Yes: WNL Edema: No Peripheral Pulses WNL: Yes Integumentary: Yes: WNL Neurological: Yes: Alert, Oriented, Cran Nerves II-XII Intact. No: Facial Droop , Numbness Psychiatric: Yes: WNL, Alert, Oriented Assessment/Plan CHRONIC RENAL dISEASE - much worse since 1 year seems relatively stable over past few months current GFR 38 cc/min etiology unclear- may be related to aging and HTN, urine is bland c/w interstitial or vascular disease r/o an obstructive component- she had moderate bilateral hydronephrosis last month at the time of the study, she had a robbins catheter which cause confound prior obstructive process Chronic Anemia- severity of anemia is out of proportion with the degree of renal disease CKD is unlikely to be the explanation, it is worthwhile to look for other causes Plan- repeat renal and bladder sono without robbins cather in view of previous finding of moderate hydronephrosis to exclude possibility of a recurrent obstructive uropathy
[2017-08-06] MEDS: LEVOTHYROXINE NA 75 MCG TABLET (FP) PO SCH (06:08)
[2017-08-06] MEDS: traMADol HCL 50 MG TABLET PO PRN ×2 (06:25→21:09)
[2017-08-06 08:40] LABS: BASOPHIL 0.8 % (0-2.0); EOSINOPHIL 8.3 % (0-4.5); MCH 31.4 pg (25.7-33.7); MCHC 33.5 g/dl (32.0-36.0); MEAN CELL VOLUME 93.7 fl (80-96); MEAN PLT VOLUME 7.8 fl (7.5-11.1); NEUTROPHILS 58.4 % (42.8-82.8); PLATELET COUNT 288 K/MM3 (134-434); RDW 20.8 % (11.6-15.6); WHITE BLOOD COUNT 7.1 K/mm3 (4.0-10.0)
[2017-08-06 09:15] LABS: ANION GAP 10 (8-16); CALCIUM 8.6 mg/dL (8.5-10.1); CO2 24 mmol/L (21-32); CREATININE 1.3 mg/dL (0.55-1.02); GLUCOSE,RANDOM 85 mg/dL (74-106); MAGNESIUM 2.5 mg/dL (1.8-2.4); PHOSPHOROUS 3.9 mg/dL (2.5-4.9)
[2017-08-06] MEDS: ASCORBIC ACID 500 MG TABLET (FP) PO SCH ×2 (09:44→21:10)
[2017-08-06] MEDS: ATENOLOL 50 MG TABLET (FP) PO SCH (09:44)
[2017-08-06 11:49] LABS: ANISOCYTOSIS 2+; MACROCYTOSIS 1+; MICROCYTOSIS 1+
[2017-08-06] MEDS: FERROUS SO4 325 MG TABLET (FP) PO SCH (12:29)
--- NOTE | 2017-08-06 12:45 | PN ---
Progress Note, Physician Chief Complaint: Ms Richards says she is doing well. Complains of being cold. No cp, sob, n/v. - Current Medication List Current Medications: Active Medications Acetaminophen (Tylenol -) 650 mg PO Q4H PRN PRN Reason: FEVER OR PAIN Ascorbic Acid (Vitamin C -) 500 mg PO BID [facility] Last Admin: 08/06/17 09:44 Dose: 500 mg Atenolol (Tenormin -) 50 mg PO DAILY [facility] Last Admin: 08/06/17 09:44 Dose: 50 mg Docusate Sodium (Colace -) 200 mg PO [facility] Last Admin: 08/05/17 21:17 Dose: 200 mg Ferrous Sulfate (Feosol -) 325 mg PO DAILY@1300 [facility] Last Admin: 08/06/17 12:29 Dose: 325 mg Levothyroxine Sodium (Synthroid -) 75 mcg PO DAILY@0700 [facility] Last Admin: 08/06/17 06:08 Dose: 75 mcg Meclizine HCl (Antivert -) 25 mg PO Q6H PRN PRN Reason: DIZZINESS Mirtazapine (Remeron -) 15 mg PO [facility] Last Admin: 08/05/17 21:18 Dose: 15 mg Polyethylene Glycol (Miralax (For Daily Use) -) 17 gm PO DAILY PRN PRN Reason: CONSTIPATION Tramadol HCl (Ultram -) 50 mg PO TID PRN PRN Reason: PAIN LEVEL 6-10 Last Admin: 08/06/17 06:25 Dose: 50 mg - Objective Vital Signs: Vital Signs Temperature 37.0 C 08/06/17 06:05 Pulse Rate 67 08/06/17 06:05 Respiratory Rate 20 08/06/17 06:05 Blood Pressure 153/69 08/06/17 06:05 O2 Sat by Pulse Oximetry (%) 95 08/04/17 22:00 Constitutional: Yes: Well Nourished, No Distress, Calm Cardiovascular: Yes: Regular Rate and Rhythm. No: Gallop, Murmur, Rub Respiratory: Yes: Regular, CTA Bilaterally. No: Rales, Rhonchi, Wheezes Gastrointestinal: Yes: Normal Bowel Sounds, Soft. No: Distention, Tenderness Extremities: Yes: WNL Edema: No Labs: CBC, BMP 08/06/17 07:50 08/06/17 07:50 INR, PTT INR 1.00 (0.82-1.09) 08/03/17 15:45 Problem List - Problems (1) Pneumonia Code(s): J18.9 - PNEUMONIA, UNSPECIFIED ORGANISM Qualifiers: Pneumonia type: due to unspecified organism Laterality: unspecified laterality Lung location: unspecified part of lung Qualified Code(s): J18.9 - Pneumonia, unspecified organism; J18.9 - Pneumonia, unspecified organism (2) Anemia Code(s): D64.9 - ANEMIA, UNSPECIFIED Qualifiers: (3) Acute kidney failure Code(s): N17.9 - ACUTE KIDNEY FAILURE, UNSPECIFIED Qualifiers: Acute renal failure type: unspecified Qualified Code(s): N17.9 - Acute kidney failure, unspecified; N17.9 - Acute kidney failure, unspecified; N17.9 - Acute kidney failure, unspecified (4) Hypertension Code(s): I10 - ESSENTIAL (PRIMARY) HYPERTENSION (5) Hydronephrosis Code(s): N13.30 - UNSPECIFIED HYDRONEPHROSIS Assessment/Plan (1) Pneumonia Assessment/Plan: -repeat x-ray reviewed -still no other signs of infection -will not restart antibiotics unless other signs of sepsis Code(s): J18.9 - PNEUMONIA, UNSPECIFIED ORGANISM Qualifiers: Pneumonia type: due to unspecified organism Laterality: unspecified laterality Lung location: unspecified part of lung Qualified Code(s): J18.9 - Pneumonia, unspecified organism; J18.9 - Pneumonia, unspecified organism (2) Anemia Assessment/Plan: -case d/w hematology -possibly secondary to possible breast malignancy -proper response to transfusion Code(s): D64.9 - ANEMIA, UNSPECIFIED Qualifiers: (3) Acute kidney failure Assessment/Plan: -creatinine improved with transfusion -however ultrasound showing recurrence of hydronephrosis -appreciate nephrology assistance -will consult urology Code(s): N17.9 - ACUTE KIDNEY FAILURE, UNSPECIFIED Qualifiers: Acute renal failure type: unspecified Qualified Code(s): N17.9 - Acute kidney failure, unspecified; N17.9 - Acute kidney failure, unspecified; N17.9 - Acute kidney failure, unspecified (4) Hypertension Assessment/Plan: -continue atenolol -increasing -will place on amlodipine as well -amlodipine can cause edema, so if edema noted most likely secondary to amlodipine -holding benicar and HCTZ secondary to renal function Code(s): I10 - ESSENTIAL (PRIMARY) HYPERTENSION (5) Hydronephrosis -consult urology
--- NOTE | 2017-08-06 13:58 | PN ---
Progress Note (short form) - Note Progress Note: Patient seen and examined . In a chair. Feels better. No problems breathing. Constitutional: Yes: Well Nourished, No Distress, Calm Eyes: Yes: Conjunctiva Clear, EOM Intact HENT: Yes: Atraumatic, Normocephalic Neck: Yes: Supple, Trachea Midline Cardiovascular: Yes: Regular Rate and Rhythm Respiratory: Yes: Regular, CTA Bilaterally Breast: some skin changes present below the breast Gastrointestinal: Yes: Normal Bowel Sounds, Soft Edema: No Neurological: Yes: Alert, Oriented Temp Pulse Resp BP Pulse Ox 98.1 F 57 L 17 163/74 95 08/06/17 13:43 08/06/17 13:43 08/06/17 13:43 08/06/17 13:43 08/04/17 22:00 Current Medications Generic Name Dose Route Start Last Admin Trade Name Freq PRN Reason Stop Dose Admin Acetaminophen 650 mg 08/03/17 19:23 Tylenol - PO Q4H PRN FEVER OR PAIN Ascorbic Acid 500 mg 08/04/17 10:00 08/06/17 09:44 Vitamin C - PO 500 mg BID DEJAN Administration Atenolol 50 mg 08/04/17 10:00 08/06/17 09:44 Tenormin - PO 50 mg DAILY DEJAN Administration Docusate Sodium 200 mg 08/04/17 22:00 08/05/17 21:17 Colace - PO 200 mg HS DEJAN Administration Ferrous Sulfate 325 mg 08/04/17 13:00 08/06/17 12:29 Feosol - PO 325 mg DAILY@1300 DEJAN Administration Levothyroxine Sodium 75 mcg 08/04/17 07:00 08/06/17 06:08 Synthroid - PO 75 mcg DAILY@0700 DEJAN Administration Meclizine HCl 25 mg 08/03/17 19:27 Antivert - PO Q6H PRN DIZZINESS Mirtazapine 15 mg 08/04/17 22:00 08/05/17 21:18 Remeron - PO 15 mg HS DEJAN Administration Polyethylene Glycol 17 gm 08/03/17 19:27 Miralax (For Daily Use) - PO DAILY PRN CONSTIPATION Tramadol HCl 50 mg 08/03/17 19:27 08/06/17 06:25 Ultram - PO 50 mg TID PRN Administration PAIN LEVEL 6-10 CBC, BMP 08/06/17 07:50 08/06/17 07:50 Assessment/Plan Anemia/Normocytic/NC: Likely a part of ACD too, Will continue repletion of PO iron today is 9.6 Etiology of anemia, could also be an underlying possible breast malignancy. renal consult appreciated. supportive care for now. Needs breast mass biopsy as an out pt. Last visit CT a/p with no contrast was done and did not show any suspicious findings and also EGD and colonoscopy were unremarkable. will follow
[2017-08-06] MEDS: amLODIPine BESYLATE 5 MG TABLET (FP) PO SCH (17:45)
[2017-08-06] MEDS: MIRTAZAPINE 15 MG TABLET (FP) PO SCH (21:09)
[2017-08-06] MEDS: DOCUSATE SODIUM 100 MG CAPSULE (FP) PO SCH (21:10)
--- NOTE | 2017-08-06 22:41 | PN ---
Progress Note (short form) - Note Progress Note: above noted Current Medications Acetaminophen (Tylenol -) 650 mg PO Q4H PRN PRN Reason: FEVER OR PAIN Amlodipine Besylate (Norvasc -) 5 mg PO DAILY [facility] Last Admin: 08/06/17 17:45 Dose: 5 mg Ascorbic Acid (Vitamin C -) 500 mg PO BID [facility] Last Admin: 08/06/17 21:10 Dose: 500 mg Atenolol (Tenormin -) 50 mg PO DAILY [facility] Last Admin: 08/06/17 09:44 Dose: 50 mg Docusate Sodium (Colace -) 200 mg PO HS [facility] Last Admin: 08/06/17 21:10 Dose: 200 mg Ferrous Sulfate (Feosol -) 325 mg PO DAILY@1300 [facility] Last Admin: 08/06/17 12:29 Dose: 325 mg Levothyroxine Sodium (Synthroid -) 75 mcg PO DAILY@0700 [facility] Last Admin: 08/06/17 06:08 Dose: 75 mcg Meclizine HCl (Antivert -) 25 mg PO Q6H PRN PRN Reason: DIZZINESS Mirtazapine (Remeron -) 15 mg PO HS [facility] Last Admin: 08/06/17 21:09 Dose: 15 mg Polyethylene Glycol (Miralax (For Daily Use) -) 17 gm PO DAILY PRN PRN Reason: CONSTIPATION Tramadol HCl (Ultram -) 50 mg PO TID PRN PRN Reason: PAIN LEVEL 6-10 Last Admin: 08/06/17 21:09 Dose: 50 mg Last Vital Signs Temp Pulse Resp BP Pulse Ox 98.1 F 57 L 20 163/74 95 08/06/17 13:43 08/06/17 13:43 08/06/17 21:00 08/06/17 13:43 08/04/17 22:00 CBC, BMP 08/06/17 07:50 08/06/17 07:50 IMP- CKD, renal function declined since early 2016 there seems to be an acute component of obstruction improved s creatinine since admission noted R/O neurogenic bladder HTN- sys BP still high Plan/Recommendation- agree with urology eval consider urodynamics if she can cooperate may need intermittent bladder catheterization
[2017-08-07] MEDS: LEVOTHYROXINE NA 75 MCG TABLET (FP) PO SCH (06:14)
[2017-08-07 07:31] LABS: BASOPHIL 0.9 % (0-2.0); EOSINOPHIL 11.4 % (0-4.5); MCH 31.9 pg (25.7-33.7); MCHC 33.9 g/dl (32.0-36.0); MEAN PLT VOLUME 7.7 fl (7.5-11.1); NEUTROPHILS 39.4 % (42.8-82.8); PLATELET COUNT 285 K/MM3 (134-434); RDW 20.7 % (11.6-15.6); WHITE BLOOD COUNT 6.5 K/mm3 (4.0-10.0)
[2017-08-07 07:52] LABS: ANION GAP 8 (8-16); CALCIUM 8.5 mg/dL (8.5-10.1); CO2 25 mmol/L (21-32); CREATININE 1.7 mg/dL (0.55-1.02); GLUCOSE,RANDOM 77 mg/dL (74-106); MAGNESIUM 2.5 mg/dL (1.8-2.4); PHOSPHOROUS 4.3 mg/dL (2.5-4.9)
[2017-08-07 08:52] LABS: C-REACTIVE PROTEIN < 0.3 MG/DL (0.00-0.3)
--- NOTE | 2017-08-07 09:46 | CON.GU ---
Consult Consult Specialty:: Referred by:: Medicine Reason for Consultation:: hydronephrosis - History of Present Illness Chief Complaint: hydronephrosis History of Present Illness: 87 year old female with rising creatinine. She denies any urinary complaints chronically or acutely other than occasional stress incontinence which is not bothersome. Her creatinine has risen. In june [address] which showed no obstriuction but parapelvic cysts. 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 Cardio/Vascular: Yes: CAD, HTN, Hyperlipdemia, Other (LVH) Gastrointestinal: Yes: GERD, Hiatal Hernia, Irritable Bowel Disease Hepatobiliary: Yes: Other (gall bladder sludge) Renal/: Yes: Renal Inusuff, Neurogenic Bladder Psych: Yes: Anxiety Musculoskeletal: Yes: Chronic low back pain, Osteoarthritis Endocrine: Yes: Hypothyroidism, Other (osteoporosis, vit d def) - Past Surgical History Past Surgical History: Yes: Appendectomy, Cataract Removal (bilateral), Hysterectomy (with BSO) - Alcohol/Substance Use Hx Alcohol Use: No - Smoking History Smoking history: Never smoked Have you smoked in the past 12 months: No Aproximately how many cigarettes per day: 0 - 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 Home Medications - Allergies Allergies/Adverse Reactions: Allergies Allergy/AdvReac Type Severity Reaction Status Date / Time No Known Allergies Allergy Verified 06/27/17 13:28 - Home Medications Home Medications: Ambulatory Orders Tramadol HCl 50 mg PO TID PRN #10 tablet MDD 3 10/14/16 Acetaminophen [Tylenol .Regular Strength -] 650 mg PO Q4H PRN #0 tablet Amlodipine Besylate [Norvasc -] 10 mg PO DAILY tablet 07/06/17 Ascorbic Acid [Vitamin C -] 500 mg PO BID tablet 07/06/17 Ferrous Sulfate [Feosol] 325 mg PO DAILY #30 tab 07/06/17 Meclizine HCl [Antivert -] 25 mg PO Q6H PRN #0 tablet 07/06/17 Polyethylene Glycol 3350 [Miralax 119 gm Btl -] 17 gm PO DAILY PRN #1 bottle 09/11 Apple Cider Vinegar 300 mg PO DAILY 08/03/17 Atenolol [Tenormin -] 50 mg PO DAILY 08/03/17 Docusate Sodium [Colace -] 200 mg PO HS 08/03/17 Levothyroxine [Synthroid -] 75 mcg PO 0600 08/03/17 Mirtazapine [Remeron -] 15 mg PO DAILY 08/03/17 Omeprazole 20 mg PO DAILY 08/03/17 Family Disease History - Family Disease History Family Disease History: Other: Father ( 80's: unclear cause), Mother ( 49: unclear cause. ? liver problem), Son (2, 1 with parkinson's disease), Daughter (2, healthy) Review of Systems - Review of Systems Genitourinary: reports: Incontinence, Testicular Mass, Testicular Pain, Testicular Swelling. denies: No Symptoms, Burning, Discharge, Dysuria, Flank Pain, Frequency, Hematuria, Lesions, Menses, Pain, Urgency, Vaginal Bleeding, Other Physical Exam- Vital Signs: Vital Signs Temperature 98.0 F 08/07/17 05:00 Pulse Rate 57 L 08/07/17 05:00 Respiratory Rate 18 08/07/17 05:00 Blood Pressure 161/60 08/07/17 05:00 O2 Sat by Pulse Oximetry (%) 95 08/04/17 22:00 Gastrointestinal: Yes: WNL, Normal Bowel Sounds, Soft Renal/: No: Bladder Distention, CVA Tenderness - Left, CVA Tenderness - Right , Beasley Present, Hematuria Labs: CBC, BMP 08/07/17 05:35 08/07/17 05:35 Imaging - Results Cat Scan: Report Reviewed Ultrasound: Report Reviewed Problem List - Problems (1) Hydronephrosis Assessment/Plan: US may have overcalled hydro rather than cysts. Will order renal scan to evaluate for obstruction Code(s): N13.30 - UNSPECIFIED HYDRONEPHROSIS (2) Female stress incontinence Code(s): N39.3 - STRESS INCONTINENCE (FEMALE) (MALE)
[2017-08-07] MEDS: amLODIPine BESYLATE 5 MG TABLET (FP) PO SCH (09:54)
[2017-08-07] MEDS: ATENOLOL 50 MG TABLET (FP) PO SCH (09:54)
[2017-08-07] MEDS: ASCORBIC ACID 500 MG TABLET (FP) PO SCH ×2 (09:54→21:35)
--- NOTE | 2017-08-07 13:37 | PN ---
Progress Note, Physician Chief Complaint: Ms Richards says she is doing well. No cp, sob, n/v. - Current Medication List Current Medications: Active Medications Acetaminophen (Tylenol -) 650 mg PO Q4H PRN PRN Reason: FEVER OR PAIN Amlodipine Besylate (Norvasc -) 5 mg PO DAILY [facility] Last Admin: 08/07/17 09:54 Dose: 5 mg Ascorbic Acid (Vitamin C -) 500 mg PO BID [facility] Last Admin: 08/07/17 09:54 Dose: 500 mg Atenolol (Tenormin -) 50 mg PO DAILY [facility] Last Admin: 08/07/17 09:54 Dose: Not Given Docusate Sodium (Colace -) 200 mg PO HS [facility] Last Admin: 08/06/17 21:10 Dose: 200 mg Ferrous Sulfate (Feosol -) 325 mg PO DAILY@1300 [facility] Last Admin: 08/06/17 12:29 Dose: 325 mg Levothyroxine Sodium (Synthroid -) 75 mcg PO DAILY@0700 [facility] Last Admin: 08/07/17 06:14 Dose: 75 mcg Meclizine HCl (Antivert -) 25 mg PO Q6H PRN PRN Reason: DIZZINESS Mirtazapine (Remeron -) 15 mg PO [facility] Last Admin: 08/06/17 21:09 Dose: 15 mg Polyethylene Glycol (Miralax (For Daily Use) -) 17 gm PO DAILY PRN PRN Reason: CONSTIPATION Tramadol HCl (Ultram -) 50 mg PO TID PRN PRN Reason: PAIN LEVEL 6-10 Last Admin: 08/06/17 21:09 Dose: 50 mg - Objective Vital Signs: Vital Signs Temperature 36.6 C 08/07/17 09:00 Pulse Rate 59 L 08/07/17 11:28 Respiratory Rate 18 08/07/17 09:00 Blood Pressure 150/70 08/07/17 09:00 O2 Sat by Pulse Oximetry (%) 96 08/07/17 11:28 Constitutional: Yes: Well Nourished, No Distress, Calm Cardiovascular: Yes: Regular Rate and Rhythm. No: Gallop, Murmur, Rub Respiratory: Yes: Regular, CTA Bilaterally. No: Rales, Rhonchi, Wheezes Gastrointestinal: Yes: Normal Bowel Sounds, Soft. No: Distention, Tenderness Extremities: Yes: WNL Edema: No Labs: CBC, BMP 08/07/17 05:35 08/07/17 05:35 INR, PTT INR 1.00 (0.82-1.09) 08/03/17 15:45 Problem List - Problems (1) Pneumonia Code(s): J18.9 - PNEUMONIA, UNSPECIFIED ORGANISM Qualifiers: Pneumonia type: due to unspecified organism Laterality: unspecified laterality Lung location: unspecified part of lung Qualified Code(s): J18.9 - Pneumonia, unspecified organism; J18.9 - Pneumonia, unspecified organism (2) Anemia Code(s): D64.9 - ANEMIA, UNSPECIFIED Qualifiers: (3) Acute kidney failure Code(s): N17.9 - ACUTE KIDNEY FAILURE, UNSPECIFIED Qualifiers: Acute renal failure type: unspecified Qualified Code(s): N17.9 - Acute kidney failure, unspecified; N17.9 - Acute kidney failure, unspecified; N17.9 - Acute kidney failure, unspecified (4) Hypertension Code(s): I10 - ESSENTIAL (PRIMARY) HYPERTENSION (5) Hydronephrosis Code(s): N13.30 - UNSPECIFIED HYDRONEPHROSIS Assessment/Plan (1) Pneumonia Assessment/Plan: -repeat x-ray reviewed -still no other signs of infection -will not restart antibiotics unless other signs of sepsis Code(s): J18.9 - PNEUMONIA, UNSPECIFIED ORGANISM Qualifiers: Pneumonia type: due to unspecified organism Laterality: unspecified laterality Lung location: unspecified part of lung Qualified Code(s): J18.9 - Pneumonia, unspecified organism; J18.9 - Pneumonia, unspecified organism (2) Anemia Assessment/Plan: -case d/w hematology -possibly secondary to possible breast malignancy -proper response to transfusion Code(s): D64.9 - ANEMIA, UNSPECIFIED Qualifiers: (3) Acute kidney failure Assessment/Plan: -appreciate urology and nephrology assistance -continues to worsen -holding nephrotoxic agents -renal scan for hydronephrosis -recheck in am Code(s): N17.9 - ACUTE KIDNEY FAILURE, UNSPECIFIED Qualifiers: Acute renal failure type: unspecified Qualified Code(s): N17.9 - Acute kidney failure, unspecified; N17.9 - Acute kidney failure, unspecified; N17.9 - Acute kidney failure, unspecified (4) Hypertension Assessment/Plan: -continue atenolol -not controlled -increase amlodipine to 10mg -amlodipine can cause edema, so if edema noted most likely secondary to amlodipine -holding benicar and HCTZ secondary to renal function Code(s): I10 - ESSENTIAL (PRIMARY) HYPERTENSION (5) Hydronephrosis -urology consulted -follow up renal scan
[2017-08-07] MEDS ORDERED: amLODIPine BESYLATE 5 MG TABLET (FP) PO ONE (14:34)
[2017-08-07] MEDS: FERROUS SO4 325 MG TABLET (FP) PO SCH (15:32)
[2017-08-07] MEDS: DOCUSATE SODIUM 100 MG CAPSULE (FP) PO SCH (21:35)
[2017-08-07] MEDS: traMADol HCL 50 MG TABLET PO PRN (21:35)
[2017-08-07] MEDS: MIRTAZAPINE 15 MG TABLET (FP) PO SCH (21:36)
--- NOTE | 2017-08-07 23:46 | PN ---
Progress Note (short form) - Note Progress Note: above noted Urology eval noted Active Medications Acetaminophen (Tylenol -) 650 mg PO Q4H PRN PRN Reason: FEVER OR PAIN Amlodipine Besylate (Norvasc -) 10 mg PO DAILY [facility] Ascorbic Acid (Vitamin C -) 500 mg PO BID [facility] Last Admin: 08/07/17 21:35 Dose: 500 mg Atenolol (Tenormin -) 50 mg PO DAILY [facility] Last Admin: 08/07/17 09:54 Dose: Not Given Docusate Sodium (Colace -) 200 mg PO [facility] Last Admin: 08/07/17 21:35 Dose: 200 mg Ferrous Sulfate (Feosol -) 325 mg PO DAILY@1300 [facility] Last Admin: 08/07/17 15:32 Dose: 325 mg Levothyroxine Sodium (Synthroid -) 75 mcg PO DAILY@0700 [facility] Last Admin: 08/07/17 06:14 Dose: 75 mcg Meclizine HCl (Antivert -) 25 mg PO Q6H PRN PRN Reason: DIZZINESS Mirtazapine (Remeron -) 15 mg PO [facility] Last Admin: 08/07/17 21:36 Dose: 15 mg Polyethylene Glycol (Miralax (For Daily Use) -) 17 gm PO DAILY PRN PRN Reason: CONSTIPATION Tramadol HCl (Ultram -) 50 mg PO TID PRN PRN Reason: PAIN LEVEL 6-10 Last Admin: 08/07/17 21:35 Dose: 50 mg Last Vital Signs Temp Pulse Resp BP Pulse Ox 98.6 F 62 20 146/62 94 L 08/07/17 18:00 08/07/17 18:00 08/07/17 20:23 08/07/17 18:00 08/07/17 20:23 exam unremarkable CBC, BMP 08/07/17 05:35 08/07/17 05:35 IMP- R/O obstructive uropathy - she had 500 cc urine in bladder and was unable to void -underlying CKD, renal function declined since early 2017 -azotemia worsening after initial improvement R/o an acute component due to obstruction R/O significant neurogenic bladder HTN- sys BP still high Plan/Recommendation- trial of intermittent bladder catheterization consider d/c tramadol- 1-5% risk of urinary retention described
[2017-08-08] MEDS: LEVOTHYROXINE NA 75 MCG TABLET (FP) PO SCH (06:08)
[2017-08-08 07:20] LABS: BASOPHIL 1.2 % (0-2.0); EOSINOPHIL 11.5 % (0-4.5); MCH 31.6 pg (25.7-33.7); MCHC 33.4 g/dl (32.0-36.0); MEAN CELL VOLUME 94.8 fl (80-96); MEAN PLT VOLUME 7.7 fl (7.5-11.1); NEUTROPHILS 44.7 % (42.8-82.8); PLATELET COUNT 315 K/MM3 (134-434); RDW 20.5 % (11.6-15.6); WHITE BLOOD COUNT 6.5 K/mm3 (4.0-10.0)
[2017-08-08 07:56] LABS: ANION GAP 9 (8-16); CALCIUM 8.5 mg/dL (8.5-10.1); CO2 27 mmol/L (21-32); CREATININE 1.7 mg/dL (0.55-1.02); GLUCOSE,RANDOM 82 mg/dL (74-106); PHOSPHOROUS 4.6 mg/dL (2.5-4.9)
[2017-08-08 09:03] LABS: MAGNESIUM 2.4 mg/dL (1.8-2.4)
[2017-08-08] MEDS: ATENOLOL 50 MG TABLET (FP) PO SCH (09:10)
[2017-08-08] MEDS: ASCORBIC ACID 500 MG TABLET (FP) PO SCH ×2 (09:13→22:04)
[2017-08-08] MEDS: amLODIPine BESYLATE 5 MG TABLET (FP) PO SCH (09:13)
[2017-08-08] MEDS: traMADol HCL 50 MG TABLET PO PRN ×2 (09:13→22:03)
[2017-08-08] MEDS: FERROUS SO4 325 MG TABLET (FP) PO SCH (14:00)
--- NOTE | 2017-08-08 20:20 | PN ---
Physical Exam: SUBJECTIVE: Patient seen and examined sitting on edge of bed eating. Daughter present. Patient reports feeling much better. OBJECTIVE: Vital Signs Period Temp Pulse Resp BP Sys/Ellsworth Pulse Ox Last 24 Hr 97.7 F-98.5 F 58-65 19-20 140-154/60-87 94 GENERAL: The patient is awake, alert, and fully oriented, in no acute distress. HEAD: Normal with no signs of trauma. LUNGS: Breath sounds equal, clear to auscultation bilaterally, no wheezes, no crackles, no accessory muscle use. HEART: Regular rate and rhythm, S1, S2 without murmur, rub or gallop. ABDOMEN: Soft, nontender, nondistended, normoactive bowel sounds, no guarding, no rebound EXTREMITIES: 2+ pulses, warm, well-perfused, no edema. NEUROLOGICAL: Cranial nerves II through XII grossly intact. Normal speech, gait not observed. Laboratory Results - last 24 hr 08/08/17 08/08/17 06:30 06:30 WBC 6.5 RBC 3.09 L Hgb 9.8 L Hct 29.3 L MCV 94.8 MCH 31.6 MCHC 33.4 RDW 20.5 H Plt Count 315 MPV 7.7 Neutrophils % 44.7 Lymphocytes % 25.2 Monocytes % 17.4 H Eosinophils % 11.5 H Basophils % 1.2 Sodium 139 Potassium 4.1 Chloride 103 Carbon Dioxide 27 Anion Gap 9 BUN 35 H D Creatinine 1.7 H Random Glucose 82 Calcium 8.5 Phosphorus 4.6 Magnesium 2.4 Active Medications Generic Name Dose Route Start Last Admin Trade Name Freq PRN Reason Stop Dose Admin Acetaminophen 650 mg 08/03/17 19:23 Tylenol - PO Q4H PRN FEVER OR PAIN Amlodipine Besylate 10 mg 08/07/17 14:34 08/08/17 09:13 Norvasc - PO 10 mg DAILY [facility] Administration Ascorbic Acid 500 mg 08/04/17 10:00 08/08/17 09:13 Vitamin C - PO 500 mg BID DEJAN Administration Atenolol 50 mg 08/04/17 10:00 08/08/17 09:10 Tenormin - PO Not Given DAILY [facility] Docusate Sodium 200 mg 08/04/17 22:00 08/07/17 21:35 Colace - PO 200 mg HS DEJAN Administration Ferrous Sulfate 325 mg 08/04/17 13:00 08/08/17 14:00 Feosol - PO 325 mg DAILY@1300 DE[facility] Administration Levothyroxine Sodium 75 mcg 08/04/17 07:00 08/08/17 06:08 Synthroid - PO 75 mcg DAILY@0700 [facility] Administration Meclizine HCl 25 mg 08/03/17 19:27 Antivert - PO Q6H PRN DIZZINESS Mirtazapine 15 mg 08/04/17 22:00 08/07/17 21:36 Remeron - PO 15 mg HS [facility] Administration Polyethylene Glycol 17 gm 08/03/17 19:27 Miralax (For Daily Use) - PO DAILY PRN CONSTIPATION Tramadol HCl 50 mg 08/03/17 19:27 08/08/17 09:13 Ultram - PO 50 mg TID PRN Administration PAIN LEVEL 6-10 ASSESSMENT/PLAN Assessment/Plan (1) Rule out Pneumonia Assessment/Plan: -left basilar opacity but no fever, leukocytosis, cough, or malaise -continue to observe off antibiotics -should get repeat CXR in 6 weeks Code(s): J18.9 - PNEUMONIA, UNSPECIFIED ORGANISM Qualifiers: Pneumonia type: due to unspecified organism Laterality: unspecified laterality Lung location: unspecified part of lung Qualified Code(s): J18.9 - Pneumonia, unspecified organism; J18.9 - Pneumonia, unspecified organism (2) Anemia Assessment/Plan: -transfused 1U PRBC 08/05 with adequate response -h/h stable Code(s): D64.9 - ANEMIA, UNSPECIFIED Qualifiers: (3) Acute kidney failure (4) Urinary retention Assessment/Plan: -Cr 1.7, was 1.3 on admission, worsening azotemia; post-void residual 500cc's -not clear if this is hydro, awaiting dictation of nuclear renal scan -concern for some type of obstructive uropathy, urology recommends trial of intermittent bladder catheterization -straight cath q6h hours; if large amount of urine is drained, increase frequency Code(s): N17.9 - ACUTE KIDNEY FAILURE, UNSPECIFIED Qualifiers: Acute renal failure type: unspecified Qualified Code(s): N17.9 - Acute kidney failure, unspecified; N17.9 - Acute kidney failure, unspecified; N17.9 - Acute kidney failure, unspecified (5) Hypertension Assessment/Plan: -continue Toprol XL, diltiazem Code(s): I10 - ESSENTIAL (PRIMARY) HYPERTENSION Visit type - Emergency Visit Emergency Visit: Yes ED Registration Date: 08/03/17 Care time: The patient presented to the Emergency Department on the above date and was hospitalized for further evaluation of their emergent condition. - New Patient This patient is new to me today: Yes Date on this admission: 08/08/17 - Critical Care Critical Care patient: No
[2017-08-08] MEDS: DOCUSATE SODIUM 100 MG CAPSULE (FP) PO SCH (22:03)
[2017-08-08] MEDS: MIRTAZAPINE 15 MG TABLET (FP) PO SCH (22:03)
[2017-08-09] MEDS: LEVOTHYROXINE NA 75 MCG TABLET (FP) PO SCH (06:28)
[2017-08-09 07:44] LABS: BASOPHIL 0.6 % (0-2.0); EOSINOPHIL 9.8 % (0-4.5); MCH 31.6 pg (25.7-33.7); MCHC 33.5 g/dl (32.0-36.0); MEAN CELL VOLUME 94.4 fl (80-96); MEAN PLT VOLUME 7.3 fl (7.5-11.1); PLATELET COUNT 306 K/MM3 (134-434); RDW 19.9 % (11.6-15.6); WHITE BLOOD COUNT 7.4 K/mm3 (4.0-10.0)
[2017-08-09 08:17] LABS: ALBUMIN 2.9 g/dl (3.4-5.0); ALK PHOS 79 U/L (45-117); ANION GAP 10 (8-16); BILIRUBIN,TOTAL 0.3 mg/dL (0.2-1.0); CALCIUM 8.5 mg/dL (8.5-10.1); CO2 25 mmol/L (21-32); CREATININE 1.5 mg/dL (0.55-1.02); GLUCOSE,RANDOM 87 mg/dL (74-106); MAGNESIUM 2.6 mg/dL (1.8-2.4); PHOSPHOROUS 4.2 mg/dL (2.5-4.9); SGOT/AST 10 U/L (15-37); SGPT/ALT 11 U/L (12-78); TOT PROT 5.8 g/dl (6.4-8.2)
[2017-08-09] MEDS: amLODIPine BESYLATE 5 MG TABLET (FP) PO SCH (09:48)
[2017-08-09] MEDS: ASCORBIC ACID 500 MG TABLET (FP) PO SCH ×2 (09:48→22:17)
[2017-08-09] MEDS: ATENOLOL 50 MG TABLET (FP) PO SCH (09:48)
--- NOTE | 2017-08-09 10:58 | PN ---
Progress Note (short form) - Note Progress Note: awaiting Nuclear medicine scan report. creatinine is stable will follow Problem List - Problems (1) Hydronephrosis Code(s): N13.30 - UNSPECIFIED HYDRONEPHROSIS (2) Female stress incontinence Code(s): N39.3 - STRESS INCONTINENCE (FEMALE) (MALE)
[2017-08-09] MEDS: FERROUS SO4 325 MG TABLET (FP) PO SCH (13:32)
--- NOTE | 2017-08-09 14:48 | PN ---
Physical Exam: SUBJECTIVE: Patient seen and examined at the bedside. She was eating her lunch. States she feels well. OBJECTIVE: Vital Signs Period Temp Pulse Resp BP Sys/Ellsworth Pulse Ox Last 24 Hr 97.9 F-98.8 F 63-67 18-20 138-154/58-67 GENERAL: The patient is awake, alert, and fully oriented, in no acute distress. HEAD: Normal with no signs of trauma. EYES: PERRL, extraocular movements intact, sclera anicteric, conjunctiva clear. No ptosis. ENT: Ears normal, nares patent, oropharynx clear without exudates, moist mucous membranes. NECK: Trachea midline, full range of motion, supple. LUNGS: Breath sounds equal, clear to auscultation bilaterally, no wheezes, no crackles, no accessory muscle use. HEART: Regular rate and rhythm, S1, S2 without murmur, rub or gallop. ABDOMEN: Soft, nontender, nondistended, normoactive bowel sounds, no guarding, no rebound, no hepatosplenomegaly, no masses. EXTREMITIES: 2+ pulses, warm, well-perfused, no edema. NEUROLOGICAL: Normal speech, gait not observed. PSYCH: Normal mood, normal affect. SKIN: Warm, dry, normal turgor, no rashes or lesions noted Laboratory Results - last 24 hr 08/09/17 08/09/17 06:40 06:40 WBC 7.4 RBC 3.07 L Hgb 9.7 L Hct 29.0 L MCV 94.4 MCH 31.6 MCHC 33.5 RDW 19.9 H Plt Count 306 MPV 7.3 L Neutrophils % 53.0 Lymphocytes % 21.0 Monocytes % 15.6 H Eosinophils % 9.8 H Basophils % 0.6 Sodium 139 Potassium 4.3 Chloride 104 Carbon Dioxide 25 Anion Gap 10 BUN 33 H Creatinine 1.5 H Creat Clearance w eGFR 32.77 Random Glucose 87 Calcium 8.5 Phosphorus 4.2 Magnesium 2.6 H Total Bilirubin 0.3 AST 10 L ALT 11 L Alkaline Phosphatase 79 Total Protein 5.8 L Albumin 2.9 L Active Medications Generic Name Dose Route Start Last Admin Trade Name Freq PRN Reason Stop Dose Admin Acetaminophen 650 mg 08/03/17 19:23 Tylenol - PO Q4H PRN FEVER OR PAIN Amlodipine Besylate 10 mg 08/07/17 14:34 08/09/17 09:48 Norvasc - PO 10 mg DAILY [facility] Administration Ascorbic Acid 500 mg 08/04/17 10:00 08/09/17 09:48 Vitamin C - PO 500 mg BID DEJAN Administration Atenolol 50 mg 08/04/17 10:00 08/09/17 09:48 Tenormin - PO 50 mg DAILY [facility] Administration Docusate Sodium 200 mg 08/04/17 22:00 08/08/17 22:03 Colace - PO 200 mg HS DEJAN Administration Ferrous Sulfate 325 mg 08/04/17 13:00 08/09/17 13:32 Feosol - PO 325 mg DAILY@1300 [facility] Administration Levothyroxine Sodium 75 mcg 08/04/17 07:00 08/09/17 06:28 Synthroid - PO 75 mcg DAILY@0700 [facility] Administration Meclizine HCl 25 mg 08/03/17 19:27 Antivert - PO Q6H PRN DIZZINESS Mirtazapine 15 mg 08/04/17 22:00 08/08/17 22:03 Remeron - PO 15 mg HS [facility] Administration Polyethylene Glycol 17 gm 08/03/17 19:27 Miralax (For Daily Use) - PO DAILY PRN CONSTIPATION Tramadol HCl 50 mg 08/03/17 19:27 08/08/17 22:03 Ultram - PO 50 mg TID PRN Administration PAIN LEVEL 6-10 ASSESSMENT/PLAN: Patient is a 87 year old female who was sent over from her NH for hemoglobin 7.1 and found to have pneumonia. Pulmonary: Pneumonia A/P: Rule out pneumonia Patient tolerating room air, denies shortness of breath WBC stable, no fevers, no coughing, denies weakness Repeat chest outpatient within 6 weeks to monitor Hematology: Anemia, acute/low stable A/P: s/p transfusion of PRBC on 08/05 Monitor CBC Renal: Acute Renal Failure A/P: Creatinine stable @ 1.5 intermittent bladder catheterization q6 Awaiting offical read of NM scan Urology following Cardiology: Hypertension, chronic A/P: On Norvasc, Atenolol Monitor BP F.E.N. Fluids: Monitor PO intake Electrolytes: monitor labs Nutrition: low sodium Prophylaxis: DVT: SCDs GI: Miralax Disposition: full code. Visit type - Emergency Visit Emergency Visit: Yes ED Registration Date: 08/03/17 Care time: The patient presented to the Emergency Department on the above date and was hospitalized for further evaluation of their emergent condition. - New Patient This patient is new to me today: Yes Date on this admission: 08/09/17 - Critical Care Critical Care patient: No - Discharge Referral Referred to [facility] No
[2017-08-09] MEDS: MIRTAZAPINE 15 MG TABLET (FP) PO SCH (22:17)
[2017-08-09] MEDS: DOCUSATE SODIUM 100 MG CAPSULE (FP) PO SCH (22:17)
[2017-08-09] MEDS: traMADol HCL 50 MG TABLET PO PRN (22:25)
[2017-08-10 06:08] LABS: BASOPHIL 0.9 % (0-2.0); EOSINOPHIL 11.3 % (0-4.5); MCH 32.2 pg (25.7-33.7); MEAN CELL VOLUME 94.7 fl (80-96); MEAN PLT VOLUME 7.6 fl (7.5-11.1); NEUTROPHILS 42.3 % (42.8-82.8); PLATELET COUNT 314 K/MM3 (134-434); WHITE BLOOD COUNT 5.7 K/mm3 (4.0-10.0)
[2017-08-10] MEDS: LEVOTHYROXINE NA 75 MCG TABLET (FP) PO SCH (06:18)
[2017-08-10 06:40] LABS: ALBUMIN 2.9 g/dl (3.4-5.0); ANION GAP 8 (8-16); CALCIUM 8.2 mg/dL (8.5-10.1); CO2 26 mmol/L (21-32); GLUCOSE,RANDOM 77 mg/dL (74-106); SGOT/AST 7 U/L (15-37); SGPT/ALT 11 U/L (12-78)
[2017-08-10 06:46] LABS: ALK PHOS 72 U/L (45-117); BILIRUBIN,TOTAL 0.3 mg/dL (0.2-1.0); CREATININE 1.4 mg/dL (0.55-1.02); TOT PROT 5.6 g/dl (6.4-8.2)
[2017-08-10] MEDS: amLODIPine BESYLATE 5 MG TABLET (FP) PO SCH (10:08)
[2017-08-10] MEDS: ATENOLOL 50 MG TABLET (FP) PO SCH (10:08)
[2017-08-10] MEDS: ASCORBIC ACID 500 MG TABLET (FP) PO SCH ×2 (10:09→21:09)
--- NOTE | 2017-08-10 12:22 | PN ---
Progress Note, Physician Chief Complaint: Ms Richards says she is doing well. No cp, sob, n/v. - Current Medication List Current Medications: Active Medications Acetaminophen (Tylenol -) 650 mg PO Q4H PRN PRN Reason: FEVER OR PAIN Amlodipine Besylate (Norvasc -) 10 mg PO DAILY [facility] Last Admin: 08/10/17 10:08 Dose: 10 mg Ascorbic Acid (Vitamin C -) 500 mg PO BID [facility] Last Admin: 08/10/17 10:09 Dose: 500 mg Atenolol (Tenormin -) 50 mg PO DAILY [facility] Last Admin: 08/10/17 10:08 Dose: 50 mg Docusate Sodium (Colace -) 200 mg PO HS [facility] Last Admin: 08/09/17 22:17 Dose: 200 mg Ferrous Sulfate (Feosol -) 325 mg PO DAILY@1300 [facility] Last Admin: 08/09/17 13:32 Dose: 325 mg Levothyroxine Sodium (Synthroid -) 75 mcg PO DAILY@0700 [facility] Last Admin: 08/10/17 06:18 Dose: 75 mcg Meclizine HCl (Antivert -) 25 mg PO Q6H PRN PRN Reason: DIZZINESS Mirtazapine (Remeron -) 15 mg PO HS [facility] Last Admin: 08/09/17 22:17 Dose: 15 mg Polyethylene Glycol (Miralax (For Daily Use) -) 17 gm PO DAILY PRN PRN Reason: CONSTIPATION - Objective Vital Signs: Vital Signs Temperature 36.6 C 08/10/17 09:00 Pulse Rate 57 L 08/10/17 09:00 Respiratory Rate 18 08/10/17 09:00 Blood Pressure 182/63 08/10/17 09:00 O2 Sat by Pulse Oximetry (%) 94 L 08/07/17 20:23 Constitutional: Yes: Well Nourished, No Distress, Calm Cardiovascular: Yes: Regular Rate and Rhythm. No: Gallop, Murmur, Rub Respiratory: Yes: Regular, CTA Bilaterally. No: Rales, Rhonchi, Wheezes Gastrointestinal: Yes: Normal Bowel Sounds, Soft. No: Distention, Tenderness Extremities: Yes: WNL Edema: No Labs: CBC, BMP 08/10/17 05:25 08/10/17 05:25 INR, PTT INR 1.00 (0.82-1.09) 08/03/17 15:45 Problem List - Problems (1) Pneumonia Code(s): J18.9 - PNEUMONIA, UNSPECIFIED ORGANISM Qualifiers: Qualified Code(s): J18.9 - Pneumonia, unspecified organism; J18.9 - Pneumonia, unspecified organism (2) Anemia Code(s): D64.9 - ANEMIA, UNSPECIFIED Qualifiers: (3) Acute kidney failure Code(s): N17.9 - ACUTE KIDNEY FAILURE, UNSPECIFIED Qualifiers: Qualified Code(s): N17.9 - Acute kidney failure, unspecified; N17.9 - Acute kidney failure, unspecified; N17.9 - Acute kidney failure, unspecified (4) Hypertension Code(s): I10 - ESSENTIAL (PRIMARY) HYPERTENSION (5) Hydronephrosis Code(s): N13.30 - UNSPECIFIED HYDRONEPHROSIS Assessment/Plan (1) VRE UTI Assessment/Plan: -patient with retention over the weekend, urine culture growing VRE -on last admission had pansensitive e coli -according to daughter, was on multiple antibiotics at the [facility] for UTI -consult ID to evaluate need for antibiotics (2) Anemia Assessment/Plan: -case d/w hematology -possibly secondary to possible breast malignancy -proper response to transfusion Code(s): D64.9 - ANEMIA, UNSPECIFIED Qualifiers: (3) Acute kidney failure Assessment/Plan: -nephrology following -renal scan read, R kidney at 33% -will await nephrology recommendations Code(s): N17.9 - ACUTE KIDNEY FAILURE, UNSPECIFIED Qualifiers: Acute renal failure type: unspecified Qualified Code(s): N17.9 - Acute kidney failure, unspecified; N17.9 - Acute kidney failure, unspecified; N17.9 - Acute kidney failure, unspecified (4) Hypertension Assessment/Plan: -continue atenolol -amlodipine increased to 10mg this admission -monitor -amlodipine can cause edema, so if edema noted most likely secondary to amlodipine -holding benicar and HCTZ secondary to renal function Code(s): I10 - ESSENTIAL (PRIMARY) HYPERTENSION (5) Hydronephrosis -urology consulted and following -renal scan as above
--- NOTE | 2017-08-10 13:52 | CONSULT ---
Consultation: CONSULT REQUEST: INFECTIOUS DISEASE HISTORY OF PRESENT ILLNESS: Pt is an 87yo F with PMHx of CAD, HTN, HLD, ?CKD who presented from [place] due to low hemoglobin. During the hospital course she had a UA which was negative for any leuk. esterase or nitrite. A urine culture obtained showed +VREF with low colony counts. The patient denies ever having urinary symptoms of urgency, frequency, dysuria, hematuria. She denies toxic habits. She doesn't remember being seen by a urologist, denies recent instrumentation. She has had UTI's in the past, all quesada sensitive. On admission, she received one dose of Ceftriaxone + Azithromycin for possible PNA, but has not received any since. She has since denied fevers, chills, CP, SOB, abdominal pain. Home Medication List Medication Instructions Recorded Confirmed Type Apple Cider Vinegar 300 mg PO DAILY 08/03/17 08/03/17 History Atenolol [Tenormin -] 50 mg PO DAILY 08/03/17 08/03/17 History Docusate Sodium [Colace -] 200 mg PO HS 08/03/17 08/03/17 History Levothyroxine [Synthroid -] 75 mcg PO 0600 08/03/17 08/03/17 History Mirtazapine [Remeron -] 15 mg PO DAILY 08/03/17 08/03/17 History Omeprazole 20 mg PO DAILY 08/03/17 08/03/17 History REVIEW OF SYSTEMS: CONSTITUTIONAL: Absent: fever, chills, diaphoresis, generalized weakness, malaise, loss of appetite, weight change HEENT: Absent: rhinorrhea, nasal congestion, throat pain, throat swelling, difficulty swallowing, mouth swelling, ear pain, eye pain, visual changes CARDIOVASCULAR: Absent: chest pain, syncope, palpitations, irregular heart rate, lightheadedness , peripheral edema RESPIRATORY: Absent: cough, shortness of breath, dyspnea with exertion, orthopnea, wheezing, stridor, hemoptysis GASTROINTESTINAL: Absent: abdominal pain, abdominal distension, nausea, vomiting, diarrhea, constipation, melena, hematochezia GENITOURINARY: Absent: dysuria, frequency, urgency, hesitancy, hematuria, flank pain, genital pain MUSCULOSKELETAL: Absent: myalgia, arthralgia, joint swelling, back pain, neck pain SKIN: Absent: rash, itching, pallor HEMATOLOGIC/IMMUNOLOGIC: Absent: easy bleeding, easy bruising, lymphadenopathy, frequent infections ENDOCRINE: Absent: unexplained weight gain, unexplained weight loss, heat intolerance, cold intolerance NEUROLOGIC: Absent: headache, focal weakness or paresthesias, dizziness, unsteady gait, seizure, mental status changes, bladder or bowel incontinence PSYCHIATRIC: Absent: anxiety, depression, suicidal or homicidal ideation, hallucinations. PHYSICAL EXAMINATION Vital Signs Temperature 98.0 F 08/10/17 15:19 Pulse Rate 56 L 08/10/17 15:19 Respiratory Rate 18 08/10/17 15:19 Blood Pressure 158/67 08/10/17 15:19 O2 Sat by Pulse Oximetry (%) 94 L 08/07/17 20:23 GEN: Awake, Alert, NAD, forgetful at times, sitting on chair next to bed reading magazine HEENT: PERRLA, EOMi CV: S1, S2, RRR LUNG: CTABL ABD: Soft, NT, no suprapubic tenderness MSK: No flank tenderness, no erythema, minimal LE edema Active Medications Generic Name Dose Route Start Last Admin Trade Name Freq PRN Reason Stop Dose Admin Acetaminophen 650 mg 08/03/17 19:23 Tylenol - PO Q4H PRN FEVER OR PAIN Amlodipine Besylate 10 mg 08/07/17 14:34 08/10/17 10:08 Norvasc - PO 10 mg DAILY DEJAN Administration Ascorbic Acid 500 mg 08/04/17 10:00 08/10/17 10:09 Vitamin C - PO 500 mg BID DEJAN Administration Atenolol 50 mg 08/04/17 10:00 08/10/17 10:08 Tenormin - PO 50 mg DAILY DEJAN Administration Docusate Sodium 200 mg 08/04/17 22:00 08/09/17 22:17 Colace - PO 200 mg HS DEJAN Administration Ferrous Sulfate 325 mg 08/04/17 13:00 08/09/17 13:32 Feosol - PO 325 mg DAILY@1300 DEJAN Administration Levothyroxine Sodium 75 mcg 08/04/17 07:00 08/10/17 06:18 Synthroid - PO 75 mcg DAILY@0700 DEJAN Administration Meclizine HCl 25 mg 08/03/17 19:27 Antivert - PO Q6H PRN DIZZINESS Mirtazapine 15 mg 08/04/17 22:00 08/09/17 22:17 Remeron - PO 15 mg HS DEJAN Administration Polyethylene Glycol 17 gm 08/03/17 19:27 Miralax (For Daily Use) - PO DAILY PRN CONSTIPATION Microbiology 08/08/17 06:00 Urine - Urine - Catheterized Urine Culture - Final Vr Ec Faecium (10-20,000 CFU) 08/04/17 00:01 Blood - Peripheral Venous Blood Culture - Final NO GROWTH AFTER 5 DAYS INCUBATION 08/04/17 00:01 Blood - Peripheral Venous Blood Culture - Final NO GROWTH AFTER 5 DAYS INCUBATION ASSESSMENT/PLAN: Pt is an 87yo F with PMHx of CAD, HTN, HLD, ?CKD who presented from [place] due to low hemoglobin, found to have +VREF in the urine # VREF in Urine - Due to low colony counts, likely patient is simply colonized and it is unlikely causing cystitis - Patient is afebrile, no leukocytosis - Will not start treatment, unless patient spikes fevers (then --> daptomycin ) - Continue contact isolation Discussed w/ Dr Wilson. Will follow. Sonali Edge MD - PGY1 Infectious Disease Visit type - Emergency Visit Emergency Visit: No - New Patient This patient is new to me today: Yes Date on this admission: 08/10/17 - Critical Care Critical Care patient: No
[2017-08-10] MEDS: FERROUS SO4 325 MG TABLET (FP) PO SCH (14:21)
--- NOTE | 2017-08-10 14:35 | PN ---
Teaching Attending Note Name of Resident: Sonali Edge ATTENDING PHYSICIAN STATEMENT I saw and evaluated the patient. I reviewed the resident's note and discussed the case with the resident. I agree with the resident's findings and plan as documented. SUBJECTIVE:ID Patient is known to me from Sep this year when I saw and division manager her for E Coli UTI Got Ceftriaxone few days Now asymptomatic with low colony count VREF in urine culture 10-20K CFU Catheterized Laboratory Tests 08/07/17 08/10/17 08/10/17 05:35 05:25 05:25 WBC 5.7 Plt Count 314 ESR 34 H Creat Clearance w eGFR 35.49 during this admission obstruction OBJECTIVE:Lung Clear Cor S1 S2 RR Abd soft nontender Ext Mild edema LE ASSESSMENT AND PLAN: Hydronephrosis left with low colony count VREF asymptomatic Plan Contact ISOLATION VREF only with no treatment. Should she spike fever get blood cultures and give dose of Daptomycin 250mg as cannot give Linezolid with Remeron. Also give gram negative coverage gram of Cefepime devendra Wilson MD
[2017-08-10] MEDS: MIRTAZAPINE 15 MG TABLET (FP) PO SCH (21:09)
[2017-08-10] MEDS: DOCUSATE SODIUM 100 MG CAPSULE (FP) PO SCH (21:11)
--- NOTE | 2017-08-10 21:35 | PN ---
Progress Note (short form) - Note Progress Note: above noted CKD Bladder dysfunction Nuclear medicine scan to be reviewed by the urologist getting straight cath about 200cc volume obtained Current Medications Acetaminophen (Tylenol -) 650 mg PO Q4H PRN PRN Reason: FEVER OR PAIN Amlodipine Besylate (Norvasc -) 10 mg PO DAILY [facility] Last Admin: 08/10/17 10:08 Dose: 10 mg Ascorbic Acid (Vitamin C -) 500 mg PO BID [facility] Last Admin: 08/10/17 21:09 Dose: 500 mg Atenolol (Tenormin -) 50 mg PO DAILY [facility] Last Admin: 08/10/17 10:08 Dose: 50 mg Docusate Sodium (Colace -) 200 mg PO HS [facility] Last Admin: 08/10/17 21:11 Dose: Not Given Ferrous Sulfate (Feosol -) 325 mg PO DAILY@1300 [facility] Last Admin: 08/10/17 14:21 Dose: 325 mg Levothyroxine Sodium (Synthroid -) 75 mcg PO DAILY@0700 [facility] Last Admin: 08/10/17 06:18 Dose: 75 mcg Meclizine HCl (Antivert -) 25 mg PO Q6H PRN PRN Reason: DIZZINESS Mirtazapine (Remeron -) 15 mg PO HS [facility] Last Admin: 08/10/17 21:09 Dose: 15 mg Polyethylene Glycol (Miralax (For Daily Use) -) 17 gm PO DAILY PRN PRN Reason: CONSTIPATION Last Vital Signs Temp Pulse Resp BP Pulse Ox 98.0 F 56 L 18 158/67 94 L 08/10/17 15:19 08/10/17 15:19 08/10/17 15:19 08/10/17 15:19 08/07/17 20:23 lungs clear heart reg rate and rhythm abd soft CBC, BMP 08/10/17 05:25 08/10/17 05:25 IMP- Bladder dysfunction- R/O significant neurogenic bladder getting straight cath R/O obstructive uropathy - she had 500 cc urine in bladder and was unable to void -underlying CKD, renal function declined since early 2016 -azotemia worsening after initial improvement on admission seems to have an acute component due to obstruction HTN- sys BP still high Plan/Recommendation- continue intermittent bladder catheterization
[2017-08-11] MEDS: LEVOTHYROXINE NA 75 MCG TABLET (FP) PO SCH (06:03)
[2017-08-11 08:34] LABS: BASOPHIL 0.9 % (0-2.0); MCH 31.6 pg (25.7-33.7); MCHC 33.1 g/dl (32.0-36.0); MEAN CELL VOLUME 95.4 fl (80-96); MEAN PLT VOLUME 7.6 fl (7.5-11.1); NEUTROPHILS 44.2 % (42.8-82.8); PLATELET COUNT 318 K/MM3 (134-434); RDW 19.4 % (11.6-15.6); WHITE BLOOD COUNT 6.3 K/mm3 (4.0-10.0)
[2017-08-11 08:58] LABS: ANION GAP 9 (8-16); CALCIUM 8.6 mg/dL (8.5-10.1); CO2 26 mmol/L (21-32); GLUCOSE,RANDOM 84 mg/dL (74-106); MAGNESIUM 2.5 mg/dL (1.8-2.4)
[2017-08-11 08:59] LABS: CREATININE 1.4 mg/dL (0.55-1.02); PHOSPHOROUS 3.7 mg/dL (2.5-4.9)
[2017-08-11] MEDS: amLODIPine BESYLATE 5 MG TABLET (FP) PO SCH (10:10)
[2017-08-11] MEDS: ASCORBIC ACID 500 MG TABLET (FP) PO SCH ×2 (10:10→21:29)
[2017-08-11] MEDS: ATENOLOL 50 MG TABLET (FP) PO SCH (10:11)
--- NOTE | 2017-08-11 10:49 | PN ---
Progress Note, Physician Chief Complaint: Ms Richards is without complaint today. No cp, sob, n/v. Says she is urinating without straight cath. - Current Medication List Current Medications: Active Medications Acetaminophen (Tylenol -) 650 mg PO Q4H PRN PRN Reason: FEVER OR PAIN Last Admin: 08/10/17 23:49 Dose: 650 mg Amlodipine Besylate (Norvasc -) 10 mg PO DAILY [facility] Last Admin: 08/11/17 10:10 Dose: 10 mg Ascorbic Acid (Vitamin C -) 500 mg PO BID [facility] Last Admin: 08/11/17 10:10 Dose: 500 mg Atenolol (Tenormin -) 50 mg PO DAILY [facility] Last Admin: 08/11/17 10:11 Dose: 50 mg Docusate Sodium (Colace -) 200 mg PO [facility] Last Admin: 08/10/17 21:11 Dose: Not Given Ferrous Sulfate (Feosol -) 325 mg PO DAILY@1300 [facility] Last Admin: 08/10/17 14:21 Dose: 325 mg Levothyroxine Sodium (Synthroid -) 75 mcg PO DAILY@0700 [facility] Last Admin: 08/11/17 06:03 Dose: 75 mcg Meclizine HCl (Antivert -) 25 mg PO Q6H PRN PRN Reason: DIZZINESS Mirtazapine (Remeron -) 15 mg PO HS [facility] Last Admin: 08/10/17 21:09 Dose: 15 mg Polyethylene Glycol (Miralax (For Daily Use) -) 17 gm PO BID [facility] - Objective Vital Signs: Vital Signs Temperature 36.3 C L 08/11/17 03:00 Pulse Rate 57 L 08/11/17 03:00 Respiratory Rate 18 08/11/17 03:00 Blood Pressure 152/56 08/11/17 03:00 O2 Sat by Pulse Oximetry (%) 94 L 08/07/17 20:23 Constitutional: Yes: Well Nourished, No Distress, Calm Cardiovascular: Yes: Regular Rate and Rhythm. No: Gallop, Murmur, Rub Respiratory: Yes: Regular, CTA Bilaterally. No: Rales, Rhonchi, Wheezes Gastrointestinal: Yes: Normal Bowel Sounds, Soft. No: Distention, Tenderness Extremities: Yes: WNL Edema: No Labs: CBC, BMP 08/11/17 06:50 08/11/17 06:50 INR, PTT INR 1.00 (0.82-1.09) 08/03/17 15:45 Problem List - Problems (1) Pneumonia Code(s): J18.9 - PNEUMONIA, UNSPECIFIED ORGANISM Qualifiers: Pneumonia type: due to unspecified organism Laterality: unspecified laterality Lung location: unspecified part of lung Qualified Code(s): J18.9 - Pneumonia, unspecified organism; J18.9 - Pneumonia, unspecified organism (2) Anemia Code(s): D64.9 - ANEMIA, UNSPECIFIED Qualifiers: (3) Acute kidney failure Code(s): N17.9 - ACUTE KIDNEY FAILURE, UNSPECIFIED Qualifiers: Acute renal failure type: unspecified Qualified Code(s): N17.9 - Acute kidney failure, unspecified; N17.9 - Acute kidney failure, unspecified; N17.9 - Acute kidney failure, unspecified (4) Hypertension Code(s): I10 - ESSENTIAL (PRIMARY) HYPERTENSION (5) Hydronephrosis Code(s): N13.30 - UNSPECIFIED HYDRONEPHROSIS Assessment/Plan (1) VRE UTI Assessment/Plan: -appreciate ID assistance -currently holding on antibiotics as most likely colonization -no signs of sepsis, but begin antibiotics if has fevers or leukocytosis (2) Anemia Assessment/Plan: -case d/w hematology -possibly secondary to possible breast malignancy -proper response to transfusion Code(s): D64.9 - ANEMIA, UNSPECIFIED Qualifiers: (3) Acute kidney failure Assessment/Plan: -currently at baseline -appreciate nephrology assistance -monitor Code(s): N17.9 - ACUTE KIDNEY FAILURE, UNSPECIFIED Qualifiers: Acute renal failure type: unspecified Qualified Code(s): N17.9 - Acute kidney failure, unspecified; N17.9 - Acute kidney failure, unspecified; N17.9 - Acute kidney failure, unspecified (4) Hypertension Assessment/Plan: -continue atenolol and amlodipine -still elevated, however considering age does not need tight blood pressure control -if concern about renal function and needing tighter control, will add a third agent -consider hydralazine, will avoid diuretics and ACEI/ARBs secondary to renal function unless approved by nephrology -cannot increase beta blockers secondary to heart rate Code(s): I10 - ESSENTIAL (PRIMARY) HYPERTENSION (5) Hydronephrosis -case d/w urology about renal scan -will see today and follow up (6) Breast mass -will need outpatient biopsy (7) Constipation -noted patient has not had bowel movement since 08/07 -increase miralax to bid and schedule
[2017-08-11] MEDS: FERROUS SO4 325 MG TABLET (FP) PO SCH (14:20)
[2017-08-11] MEDS: POLYETHYLENE GLYCOL 3350 119 GM BTL PO SCH ×2 (14:20→21:29)
[2017-08-11] MEDS: DOCUSATE SODIUM 100 MG CAPSULE (FP) PO SCH (21:29)
[2017-08-11] MEDS: MIRTAZAPINE 15 MG TABLET (FP) PO SCH (21:29)
--- NOTE | 2017-08-11 23:47 | PN ---
Progress Note (short form) - Note Progress Note: above noted CKD Bladder dysfunction Nuclear medicine scan to be reviewed by the urologist getting straight cath about 200cc volume obtained Current Medications Acetaminophen (Tylenol -) 650 mg PO Q4H PRN PRN Reason: FEVER OR PAIN Last Admin: 08/10/17 23:49 Dose: 650 mg Amlodipine Besylate (Norvasc -) 10 mg PO DAILY [facility] Last Admin: 08/11/17 10:10 Dose: 10 mg Ascorbic Acid (Vitamin C -) 500 mg PO BID [facility] Last Admin: 08/11/17 21:29 Dose: 500 mg Atenolol (Tenormin -) 50 mg PO DAILY [facility] Last Admin: 08/11/17 10:11 Dose: 50 mg Docusate Sodium (Colace -) 200 mg PO [facility] Last Admin: 08/11/17 21:29 Dose: 200 mg Ferrous Sulfate (Feosol -) 325 mg PO DAILY@1300 [facility] Last Admin: 08/11/17 14:20 Dose: 325 mg Levothyroxine Sodium (Synthroid -) 75 mcg PO DAILY@0700 [facility] Last Admin: 08/11/17 06:03 Dose: 75 mcg Meclizine HCl (Antivert -) 25 mg PO Q6H PRN PRN Reason: DIZZINESS Mirtazapine (Remeron -) 15 mg PO HS [facility] Last Admin: 08/11/17 21:29 Dose: 15 mg Polyethylene Glycol (Miralax (For Daily Use) -) 17 gm PO BID [facility] Last Admin: 08/11/17 21:29 Dose: 17 gm Last Vital Signs Temp Pulse Resp BP Pulse Ox 97.9 F 71 18 161/67 98 08/11/17 18:00 08/11/17 18:00 08/11/17 18:00 08/11/17 18:00 08/11/17 09:00 No complaints lungs clear heart reg rate and rhythm abd soft Ext no edema CBC, BMP 08/11/17 06:50 08/11/17 06:50 IMP- Bladder dysfunction- R/O significant neurogenic bladder required straight cath for bladder vol 500cc and unable to void now seems to have less volume retained GILA (obstructive) Component-azotemia worsened after initial improvement on admission, now stable at s creat 1.4 -seems to have a question of acute component due to obstruction CKD-although she has underlying interstitial CKD , renal function was better one year ago, HTN- sys BP still tenedncy to be highhigh Plan/Recommendation- -continue to monitor for possible recurrence of obstructive uropathy, a risk for further renal damage -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
[2017-08-12] MEDS: LEVOTHYROXINE NA 75 MCG TABLET (FP) PO SCH (06:23)
[2017-08-12 07:54] LABS: BASOPHIL 0.9 % (0-2.0); EOSINOPHIL 8.2 % (0-4.5); MCH 31.7 pg (25.7-33.7); MCHC 33.3 g/dl (32.0-36.0); MEAN CELL VOLUME 95.1 fl (80-96); MEAN PLT VOLUME 7.4 fl (7.5-11.1); NEUTROPHILS 54.9 % (42.8-82.8); PLATELET COUNT 298 K/MM3 (134-434); RDW 19.5 % (11.6-15.6)
[2017-08-12 08:05] LABS: CALCIUM 8.9 mg/dL (8.5-10.1); MAGNESIUM 2.5 mg/dL (1.8-2.4)
[2017-08-12 08:08] LABS: ANION GAP 9 (8-16); CO2 25 mmol/L (21-32); CREATININE 1.3 mg/dL (0.55-1.02); GLUCOSE,RANDOM 83 mg/dL (74-106); PHOSPHOROUS 3.4 mg/dL (2.5-4.9)
[2017-08-12] MEDS: ATENOLOL 50 MG TABLET (FP) PO SCH (09:45)
[2017-08-12] MEDS: ASCORBIC ACID 500 MG TABLET (FP) PO SCH (09:45)
[2017-08-12] MEDS: amLODIPine BESYLATE 5 MG TABLET (FP) PO SCH (09:45)
[2017-08-12] MEDS: POLYETHYLENE GLYCOL 3350 119 GM BTL PO SCH (09:46)
--- NOTE | 2017-08-12 11:18 | PN ---
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 Renal function on that side is at 33%, creatinine is stable. based on patient's age and co-morbiditied would defer any surgical correction at this time. If creatinine worsens can reconsider ureteral stenting and endopyelotomy Problem List - Problems (1) Hydronephrosis Code(s): N13.30 - UNSPECIFIED HYDRONEPHROSIS (2) Female stress incontinence Code(s): N39.3 - STRESS INCONTINENCE (FEMALE) (MALE)
--- NOTE | 2017-08-12 12:09 | DS ---
Physical Examination Vital Signs: Vital Signs Temperature 36.8 C 08/12/17 06:17 Pulse Rate 60 08/12/17 06:17 Respiratory Rate 20 08/12/17 06:17 Blood Pressure 154/70 08/12/17 04:00 O2 Sat by Pulse Oximetry (%) 98 08/11/17 21:00 Constitutional: Yes: Well Nourished, No Distress, Calm Cardiovascular: Yes: Regular Rate and Rhythm. No: Gallop, Murmur, Rub Respiratory: Yes: Regular, CTA Bilaterally. No: Rales, Rhonchi, Wheezes Gastrointestinal: Yes: Normal Bowel Sounds, Soft. No: Distention, Tenderness Extremities: Yes: WNL Edema: No Labs: CBC, BMP 08/12/17 06:00 08/12/17 06:00 Discharge Summary Reason For Visit: ANEMIA; PNEUMONIA Current Active Problems Female stress incontinence (Acute) Hydronephrosis (Acute) Pneumonia (Acute) Anemia (Chronic) Hospital Course: (1) VRE urine colonization (2) Anemia Code(s): D64.9 - ANEMIA, UNSPECIFIED Qualifiers: (3) Acute kidney failure Code(s): N17.9 - ACUTE KIDNEY FAILURE, UNSPECIFIED Qualifiers: Acute renal failure type: unspecified Qualified Code(s): N17.9 - Acute kidney failure, unspecified; N17.9 - Acute kidney failure, unspecified; N17.9 - Acute kidney failure, unspecified (4) HTN Code(s): I10 - ESSENTIAL (PRIMARY) HYPERTENSION (5) Hydronephrosis (6) Breast mass (7) Constipation Ms Richards is an 87 year old female who [facility] in from the [facility] with concern for anemia and renal failure. She was admitted with pneumonia, but on review patient had no signs/symptoms of pneumonia and her antibiotics were discontinued. On admission her renal function was at baseline, however it decreased and nephrology was consulted. There was concern for hydronephrosis and urology consulted, renal scan performed and showed chronic damage to her right kidney. Her renal function normalized. She also was anemic and she was transfused. She was seen by hematology and felt it was possibly secondary to right breast mass which needs to be biopsied as an outpatient. She was found to have colonization of her urine with VRE, ID saw and she was not started on antibiotics. She has hypertension and she should continue her medications as outlined in this discharge. She is currently safe for discharge home. 37 minutes spent in preparation of this discharge Condition: Stable - Instructions Diet, Activity, Other Instructions: regular diet. Up with assistance, further activity per PT Referrals: Franco Juarez MD [Staff Physician] - Jewel Nassar MD [Primary Care Provider] - [facility]position[facility] - Home Medications Comprehensive Discharge Medication List: Ambulatory Orders Acetaminophen [Tylenol .Regular Strength -] 650 mg PO Q4H PRN #0 tablet Amlodipine Besylate [Norvasc -] 10 mg PO DAILY tablet 07/06/17 Ascorbic Acid [Vitamin C -] 500 mg PO BID tablet 07/06/17 Ferrous Sulfate [Feosol] 325 mg PO DAILY #30 tab 07/06/17 Meclizine HCl [Antivert -] 25 mg PO Q6H PRN #0 tablet 07/06/17 Polyethylene Glycol 3350 [Miralax 119 gm Btl -] 17 gm PO DAILY PRN #1 bottle 09/11 Apple Cider Vinegar 300 mg PO DAILY 08/03/17 Atenolol [Tenormin -] 50 mg PO DAILY 08/03/17 Docusate Sodium [Colace -] 200 mg PO HS 08/03/17 Levothyroxine [Synthroid -] 75 mcg PO 0600 08/03/17 Mirtazapine [Remeron -] 15 mg PO DAILY 08/03/17 Omeprazole 20 mg PO DAILY 08/03/17 Tramadol HCl 50 mg PO TID PRN #1 tablet MDD 3 08/12/17
[2017-08-12] MEDS: FERROUS SO4 325 MG TABLET (FP) PO SCH (13:24)
[2017-08-12 14:01] VITALS: BP 156/73; PULSE 69; TEMP 97.9
== END 2017-08-12 14:07 | DRG 812 ==
LOC: JER 13:06 → JERBED 18:35 → J6S 22:59 → J8W 08-10 19:36
PROVIDERS: ADMIT Internal Medicine; ATTEND Internal Medicine
PROC: 30233N1 Transfusion of Nonautologous Red Blood Cells into Peripheral Vein, Percutaneous Approach (ICD-10-PCS; principal; 2017-08-05)
DX: D64.9 Anemia, unspecified (principal); N17.9 Acute kidney failure, unspecified; N13.30 Unspecified hydronephrosis; E78.5 Hyperlipidemia, unspecified; N39.3 Stress incontinence (female) (male); N63.0 Unspecified lump in unspecified breast; K59.00 Constipation, unspecified; I12.9 Hypertensive chronic kidney disease with stage 1 through stage 4 chronic kidney disease, or unspecified chronic kidney disease; N18.9 Chronic kidney disease, unspecified
CPT/HCPCS: 36415; 36430; 71010-TC; 71020-TC; 76775-TC; 76856-TC; 78708-TC; 80048; 80053; 81003; 82272; 82728; 83540; 83550; 83735; 83880; 84100; 84443; 84484; 85025; 85027; 85044; 85610; 85651; 86140; 86850; 86900; 86901; 86922; 87040; 87086; 87186; 87899; 93005; 93010; 93306-TC; 94761; 97116-GP; 97161-GP; 99284-25; A9562; P9038; P9058

== ENCOUNTER → 2017-08-14 | Day surgery (SDC) | payer MEDICARE ==
--- NOTE | 2017-08-17 15:08 | PATH ---
Surgical Pathology Report Patient Name: JOSELUIS DUMONT [facility]. Rec. #: [id number] /Age/Gender: 1930 (Age: 87) / F Account: [id number] Location: [facility] RADIOLOGY U Taken: 08/14/2017 Received: 08/14/2017 Reported: 08/17/2017 Physicians: Demario Sherman M.D. 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 MICROCALCIFICATIONS PRESENT IN BOTH INVASIVE AND IN SITU CARCINOMA. BREAST PROGNOSTIC MARKERS ARE PENDING AND WILL BE REPORTED AN ADDENDUM. Electronically Signed Sarah Liu M.D. Addendum Reported: 08/18/2017 Addendum Diagnosis Results of Estrogen Receptor (ER) and Progesterone Receptor (HI) studies performed at [facility] are as follows: ER (clone [id number] mouse monoclonal antibody by [employer]): 99 % nuclear staining with strong intensity (Positive). HI (clone16 mouse monoclonal antibody by [employer]): 95 % nuclear staining with moderate to strong intensity (Positive). Results of Her2 (IHC) & Ki-67 studies performed at [place], [place] ([id number]) and interpreted at [facility] are as follows: Her2 IHC (EP3 from [employer], formerly known as [id number], using [employer] Polymer Refine detection kit): 1+, negative Ki-67: < 5% (low proliferative index) Positive and negative controls (internal if applicable) show appropriate results. Formalin fixation and cold ischemic times are within current ASCO/CAP recommendations for ER, HI and Her2 testing. Sarah Liu M.D. Gross Description Received in formalin labeled "left breast biopsy 3:00, 5cmfn," is a 1.8 x 1.6 x 0.2 cm aggregate of multiple small-yellow, irregular to cylindrical portions of fibroadipose tissue. The formalin is filtered and the specimen is entirely submitted in one cassette. Time to formalin fixation: 15 minutes Total formalin fixation time: Approximately 6 hours. [id number]/14/2017
== END | disposition home or self-care (01) ==
LOC: FRADUS-SUR 12:16
PROVIDERS: ATTEND Surgery Surgical Oncology
PROC: 0HBU3ZX Excision of Left Breast, Percutaneous Approach, Diagnostic (ICD-10-PCS; principal; 2017-08-14)
DX: C50.812 Malignant neoplasm of overlapping sites of left female breast (principal); D05.12 Intraductal carcinoma in situ of left breast; N63.20 Unspecified lump in the left breast, unspecified quadrant
CPT/HCPCS: 19083; 87899; 88305-TC; 88342-TC; A4648; G0206-TC

== ENCOUNTER 2017-09-08 08:35 | Day surgery (SDC) | payer MEDICARE ==
--- NOTE | 2017-09-02 17:35 | HP ---
Admitting History and Physical - Primary Care Physician PCP: Amara Farfan - Admission Chief Complaint: Left breast cancer History of Present Illness: 87 year old female from group home in a wheel chair who felt left breast mass. On 05/27/2017 mammogram showed 1.5 cm nodule with microcalcifications at 3: 00 in the left breast. the mass was also seen on Us and a 5mm mass was noted left subareolar region which was found to be a probably benign superficial mass. Left breast ER/FL US core biopsy at 3:00 showed invasive ductal carcinoma. 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: Vertigo Cardiovascular: Yes: CAD, HTN, Hyperlipdemia, Other (LVH) Gastrointestinal: Yes: GERD, Hiatal Hernia, Irritable Bowel Disease Hepatobiliary: Yes: Other (gall bladder sludge) Renal/: Yes: Renal Inusuff, Neurogenic Bladder Heme/Onc: Yes: Anemia Psych: Yes: Anxiety Musculoskeletal: Yes: Chronic low back pain, Osteoarthritis Endocrine: Yes: Hypothyroidism, Other (osteoporosis, vit d def) - Past Surgical History Past Surgical History: Yes: Appendectomy, Cataract Removal (bilateral), Hysterectomy (with BSO) - Smoking History Smoking history: Never smoked Have you smoked in the past 12 months: No Aproximately how many cigarettes per day: 0 - Alcohol/Substance Use Hx Alcohol Use: No - Social History 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 Home Medications - Allergies Allergies/Adverse Reactions: Allergies Allergy/AdvReac Type Severity Reaction Status Date / Time No Known Allergies Allergy Verified 06/27/17 13:28 - Home Medications Home Medications: Ambulatory Orders Acetaminophen [Tylenol .Regular Strength -] 650 mg PO Q4H PRN #0 tablet Amlodipine Besylate [Norvasc -] 10 mg PO DAILY tablet 07/06/17 Ascorbic Acid [Vitamin C -] 500 mg PO BID tablet 07/06/17 Ferrous Sulfate [Feosol] 325 mg PO DAILY #30 tab 07/06/17 Meclizine HCl [Antivert -] 25 mg PO Q6H PRN #0 tablet 07/06/17 Polyethylene Glycol 3350 [Miralax 119 gm Btl -] 17 gm PO DAILY PRN #1 bottle 09/11 Apple Cider Vinegar 300 mg PO DAILY 08/03/17 Atenolol [Tenormin -] 50 mg PO DAILY 08/03/17 Docusate Sodium [Colace -] 200 mg PO HS 08/03/17 Levothyroxine [Synthroid -] 75 mcg PO 0600 08/03/17 Mirtazapine [Remeron -] 15 mg PO DAILY 08/03/17 Omeprazole 20 mg PO DAILY 08/03/17 Tramadol HCl 50 mg PO TID PRN #1 tablet MDD 3 08/12/17 Family Disease History - Family Disease History Family Disease History: Other: Father ( 80's: unclear cause), Mother ( 49: unclear cause. ? liver problem), Son (2, 1 with parkinson's disease), Daughter (2, healthy) Physical Examination Constitutional: Yes: No Distress Breast(s): Yes: Other (Symmetrical There are 3 small superficial lateral left areolar,possible epidermal cysts. post bx changes but no plapable mass or adenopathy) Problem List - Problems (1) Breast cancer, left breast Code(s): C50.912 - MALIGNANT NEOPLASM OF UNSPECIFIED SITE OF LEFT FEMALE BREAST Qualifiers: Breast location: overlapping sites of breast Patient sex: female Assessment/Plan Left breast wide excision with mammogram needle localization intraop radiation, possible left breast excisional biopsy of areolar densities
[2017-09-07 14:58] VITALS: BMI 32.4
[2017-09-08] MEDS ORDERED: MIDAZOLAM HCL 2 MG/2 ML SINGLE DOSE VIAL ONE (11:44)
[2017-09-08] MEDS ORDERED: LIDOCAINE HCL 1%, 10 MG/ML (20ML VIAL) ONE (12:09)
[2017-09-08] MEDS ORDERED: ISOSULFAN BLUE 10 MG/ML VIAL SQ ONE (12:09)
[2017-09-08] MEDS ORDERED: BUPIVACAINE HCL/PF 2.5 MG/ML - 30 ML VIAL IJ ONE (12:09)
[2017-09-08] MEDS ORDERED: PROPOFOL 20 ML ONE ×3 (12:32→15:23)
[2017-09-08] MEDS ORDERED: ROCURONIUM BROMIDE 50 MG/5 ML VIAL ONE (12:32)
[2017-09-08] MEDS ORDERED: DEXAMETHASONE SOD PHOSPHATE 4 MG/1 ML VIAL ONE (12:50)
[2017-09-08] MEDS ORDERED: ONDANSETRON 4 MG/2 ML VIAL ONE (12:50)
[2017-09-08] MEDS ORDERED: ceFAZolin SODIUM 1 GM VIAL ONE (12:59)
[2017-09-08] MEDS ORDERED: KETOROLAC TROMETHAMINE 30 MG/1 ML VIAL IVPUSH PRN (14:27)
[2017-09-08] MEDS ORDERED: ONDANSETRON 4 MG/2 ML VIAL IVPUSH PRN ×2 (14:27→16:08)
[2017-09-08] MEDS ORDERED: DEXTROSE 5%-0.45% SALINE 1,000 ML IV SCH (14:30)
[2017-09-08] MEDS ORDERED: GUM MASTIC/STORAX/MSAL/ALCOHOL 1 DRP DROPSBTL MC ONE (15:31)
--- NOTE | 2017-09-08 16:59 | OP ---
DATE OF OPERATION: 09/08/2017 PREOPERATIVE DIAGNOSIS: Left breast cancer. POSTOPERATIVE DIAGNOSIS: Left breast cancer. PROCEDURE: Left wide excision and intraoperative radiotherapy. SURGEON: Amara Farfan MD MIDDLEWARE CONSULTANT: BIJU Barfield ANESTHESIA: General. ESTIMATED BLOOD LOSS: Minimal. DRAINS: None. FINDINGS: See procedure. INDICATION FOR PROCEDURE: The patient is an 87-year-old woman who had not had a mammogram since 2009. She felt a mass in the left breast and was seen by her primary physician who sent her for diagnostic imaging. The imaging showed a 1.5-cm suspicious nodule in the left breast. Biopsy showed ER/NM positive, HER2-negative invasive ductal cancer. She came in with her daughter for consultation and was recommended breast conservation with lumpectomy, no scott evaluation, and IORT. She agreed to this procedure and is going to the operating room today. DESCRIPTION OF PROCEDURE: The patient was identified in the holding area. Informed consent was obtained. The left breast was identified with a marker. She was taken to the operating room and placed on the operating table in the supine position. She was intubated. She received antibiotics prior to surgery. Prior to surgery, she had gone to [facility] where she underwent localization of the mass in the left breast. Once she was intubated, the left breast was prepped and draped in the usual fashion. A timeout was performed. The localizing wire could be seen in the left lower outer quadrant. A curvilinear incision was made just above the wire. The incision was deepened using electrocautery. The patient also had a hematoma which developed after the biopsy. The tip of the needle was identified. The dissection continued around the needle until the needle and the surrounding tissue were completely from the remaining breast parenchyma. The needle was then disassembled and brought into the operative field, and the specimen was removed. It was labeled with a long lateral stitch and a short superior stitch. A specimen radiograph showed the specimen was included. Additional margins were then removed from the anterior, posterior, superior, inferior, medial, and lateral portions of the biopsy cavity and labeled with a silk suture at the biopsy cavity side. Most of the hematoma was removed as well. The cavity was then examined, and hemostasis was achieved. Measurement of the cavity showed that a 5-cm probe was appropriate. A pursestring suture of 0 Vicryl was placed in the subcutaneous tissue. The probe was then attached and covered with a sterile drape. The probe was placed into the wound cavity and secured with the pursestring suture. Intraoperative ultrasound showed more than 1 cm coverage in the 3, 12, and 9 o'clock positions but slightly less than 1 cm coverage at the 6 o'clock position. Coverage was deemed adequate, and treatment then was given for 52 minutes. After the treatment, the probe was removed, and the wound was closed using interrupted sutures of 2-0 plain for the deep tissue, interrupted sutures of 3-0 Vicryl for the dermis, and a running subcuticular closure of 4-0 Biosyn for the skin. The wound was cleaned and covered with a sterile gauze dressing. A surgical bra was then applied. The patient was extubated and taken to the PACU in satisfactory condition. Demario [id number]
[2017-09-09 06:24] VITALS: BP 165/53; PULSE 76; TEMP 98.3
--- NOTE | 2017-09-09 13:46 | OP ---
DATE OF OPERATION: 09/08/2017 PREOPERATIVE DIAGNOSIS: Left breast cancer. POSTOPERATIVE DIAGNOSIS: Left breast cancer. PROCEDURE: Post lumpectomy intraoperative radiation therapy for left breast cancer. ATTENDING PHYSICIAN: Amara Farfan MD COMMUNITY HEALTH COUNSELOR/RADIATION ONCOLOGIST: Benedict Ontiveros MD ANESTHESIA: General. COMPLICATIONS: None. INDICATIONS: The patient is an 87-year-old woman with a clinical stage 1 T1c N0 M0 ER positive HER2 negative moderately differentiated invasive ductal carcinoma of the left breast who has elected breast conservation with intraoperative radiation therapy on the [facility] trial. PROCEDURE: Dr. Amara Farfan performed left lumpectomy, which she has dictated. After excision of additional margins, the lumpectomy cavity was prepared and sized with a 5.0 cm diameter spherical applicator. The applicator was placed into the surgical cavity and the surrounding tissues were cinched around the applicator with a Vicryl pursestring suture. I performed a clinical and ultrasound simulation to ensure that the applicator was located within the operative bed with closure apposition of the surrounding breast tissue to the surface of the applicator. I also ensured that there was an adequate distance between the applicator and the chest wall and the applicator and the skin with a minimum separation of 0.9 cm at the 6 o'clock aspect by placing saline-soaked gauze between the skin and breast tissue. Shielding material was placed over the breast to reduce scatter radiation. The patient then received a dose of 20 Gy prescribed to 0 mm from the applicator surface with 50 kV x-rays using the Intrabeam system. Prior to treatment, the system was double checked with appropriate physics food quality tester measures. The total time required for the treatment was 52 minutes 39 seconds at a dose rate of 0.38 Gy per minute. When the treatment was completed, a survey of the patient and room confirmed that the Intrabeam source was off. There were no complications or unplanned interruptions. Dr. Farfan and her real estate assistant removed the radiation applicator from the patient and completed the surgery. The patient will be discharged to the recovery room following the surgery. BENEDICT ONTIVEROS M.D. [id number] cc: Amara Farfan MD [facility]
--- NOTE | 2017-09-11 17:38 | PATH ---
Surgical Pathology Report Patient Name: JOSELUIS DUMONT [facility]. Rec. #: [id number] /Age/Gender: 1930 (Age: 87) / F Account: [id number] Location: [facility] AMBULATORY Taken: 09/08/2017 Received: 09/08/2017 Reported: 09/11/2017 Physicians: Amara Farfan M.D. Specimen(s) Received A: LEFT BREAST WIDE EXCISION B: SUPERIOR MARGIN LEFT BREAST C: MEDIAL MARGIN LEFT BREAST D: DEEP POSTERIOR MARGIN LEFT BREAST E: INFERIOR MARGIN LEFT BREAST F: LATERAL MARGIN LEFT BREAST G: ANTERIOR MARGIN LEFT BREAST H: FINAL INFERIOR MARGIN LEFT BREAST I: LEFT SUB AREOLAR MASS Clinical History Left breast CA Final Diagnosis A. breast, left, wide excision: Invasive ductal carcinoma, well differentiated (tubule score: 2/3, nuclear grade: 2/3, mitotic score: 1/3; total Madhav score: 5/9). Invasive carcinoma measures 6 mm in greatest dimension, microscopically, WITH prominent associated calcifications. Ductal carcinoma in situ (DCIS), papillary and cribriform type, intermediate nuclear grade with associated calcifications, is present IN ASSOCIATION WITH invasive carcinoma AND AWAY FROM IT. Surgical margins are uninvolved by invasive carcinoma; invasive carcinoma is at 2 mm from the closest (anterior) margin. DCIS is close to (< 1 mm) the anterior and lateral margins. SEE specimenS C-h fOR final margins. No lymphovascular invasion is identified. Prior biopsy SITE changes are present. Pathologic stage (pTNM): pt1b (m) pNx. (SEE NOTE). See also invasive carcinoma case summary below. Note : "pT" designation is based on additional separate focus of invasive carcinoma present in specimen I. B. breast, left, superior margin, excision: Benign breast tissue showing prominent calcifications withIN blood vessels Reich. C. breast, left, medial margin, excision: Benign fibroadipose tissue. D. breast, left, DEEP posterior margin, excision: Benign breast tissue. E. breast, left, inferior margin, excision: Benign breast tissue. F. breast, left, lateral margin, excision: Focal ductal carcinoma in situ (DCIS), INTERMEDIATE NUCLEAR GRADE, spanning < 1 mm. DCIS is at 2 mm from the closest new margin. Remaining breast tissue shows prior biopsy site changes and prominent calcifications within blood vessel reich. G. breast, left, anterior margin, excision: Focal ductal carcinoma in situ (DCIS), spanning < 1 mm. DCIS is close to (< 1 mm) the new margin. H. breast, left, final inferior margin, excision: BENIGN breast tissue showing prior biopsy site changes. I. subareolar mass, left, excision: Invasive ductal carcinoma, well differentiated, with prominent associated calcifications, measuring 4 mm in greatest dimension, microscopically. Invasive carcinoma extends to the inked transected tissue edge. Comments Breast Invasive Carcinoma: Surgical Pathology Cancer Case Summary Based on AJCC/UICC TNM, 7th edition Procedure _X_ Excision with image-guided localization Specimen Laterality _X_ Left Tumor Size: Size of Largest Invasive Carcinoma: 6 mm Tumor Focality _X_ Multiple foci of invasive carcinoma Number of foci: 2 Sizes of individual foci: 6 mm, 4 mm Macroscopic and Microscopic Extent of Tumor Nipple _X_ Not applicable (excisions less than total mastectomy) Ductal Carcinoma In Situ (DCIS) _X_ DCIS is present _X_ as a major component (>25% of tumor, extensive intraductal component) Histologic Type of Invasive Carcinoma : _X_ Invasive carcinoma of no special type (ductal, not otherwise specified) Histologic Grade: (Madhav Histologic Score) Tubular Differentiation _X_ Score 2 Nuclear Pleomorphism _X_ Score 2 Mitotic Rate _X_ Score 1 Overall Grade _X_ Grade 1: scores of 3, 4, or 5 (well differentiated) Margins _X_ Margin(s) positive for invasive carcinoma: Invasive carcinoma extends to an undesignated margin in specimen I. _X__ Margin(s) close to (< 1 mm) DCIS: anterior (G) Lymph-Vascular Invasion _X_ Not identified Pathologic Staging (pTNM) Primary Tumor (Invasive Carcinoma): pT1b (m) Regional Lymph Nodes (pN): pNx Biomarker Studies Results of ER and IA studies performed on prior biopsy (D11618) at [facility] are as follows: ER (clone [id number] mouse monoclonal antibody by [employer]): 99 % nuclear staining with strong intensity (Positive). IA (clone16 mouse monoclonal antibody by [employer]): 95 % nuclear staining with moderate to strong intensity (Positive). Results of Her2 (IHC) & Ki-67 studies performed on prior biopsy ( [id number]) at [place], [place] ( [id number]) are as follows: Her2 IHC (EP3 from [employer], formerly known as [id number], using [employer] Polymer Refine detection kit): 1+ (Negative). Ki67: < 5% (low proliferative index). Electronically Signed Rochelle Bergeron M.D. Gross Description A. Received in formalin, labeled "left breast wide excision," is a 3.5 x 2.7 x 2.1 cm. small-yellow, irregular, portion of fibroadipose tissue with a needle localization wire present. There is a short suture marking the superior aspect and a long suture marking the lateral aspect, per the surgeon. There is no skin present. The specimen displays a hemorrhagic defect at the lateral aspect. The specimen is inked as follows: superior and lateral blue; inferior green; medial yellow; anterior red; deep black. The specimen is serially sectioned from superior to inferior. Sectioning reveals a hemorrhagic biopsy cavity abutting the lateral margin as well as an additional smaller hemorrhagic biopsy cavity abutting the medial margin. The biopsy cavities are surrounded by firm fibrous tissue. The specimen is entirely and sequentially submitted in 7 cassettes with the superior margin in cassette 1 and the inferior margin in cassette 7 (larger biopsy cavity in cassettes 2-6; smaller biopsy cavity in cassettes 4-6). Time to formalin fixation: 5 minutes Total formalin fixation time: Approximately 29 hours. B. Received in formalin labeled "superior margin left breast," is a 1.3 x 1.0 x 0.8 cm irregular portion of fibroadipose tissue with a suture marking the biopsy cavity side, per the surgeon. The new margin is inked green and the specimen is serially sectioned. The specimen is entirely submitted in 2 cassettes. C. Received in formalin labeled "medial margin left breast," is a 2.3 x 1.8 x 0.7 cm irregular portion of fibroadipose tissue with a suture marking the biopsy cavity side, per the surgeon. The new margin is inked green and the specimen is serially sectioned. The specimen is entirely submitted in 3 cassettes. D. Received in formalin labeled "deep posterior margin left breast," is a 1.6 x 1.0 x 0.8 cm irregular portion of fibroadipose tissue with a suture marking the biopsy cavity side, per the surgeon. The new margin is inked green and the specimen is serially sectioned. The specimen is entirely submitted in 2 cassettes. E. Received in formalin labeled "inferior margin left breast," is a 2.8 x 1.0 and 0.9 cm irregular portion of fibroadipose tissue with a suture marking the biopsy cavity side, per the surgeon. The new margin is inked green and the specimen is serially sectioned. The specimen is entirely submitted in 3 cassettes. F. Received in formalin labeled "lateral margin left breast," is a 3.6 x 2.1 x 1.8 cm irregular portion of fibroadipose tissue with a suture marking the biopsy cavity side, per the surgeon. The new margin is inked green and the specimen is serially sectioned. The specimen is entirely and sequentially submitted in 8 cassettes. G. Received in formalin labeled "anterior margin left breast," is a 1.8 x 1.5 x 0.7 cm irregular portion of fibroadipose tissue with a suture marking the biopsy cavity side, per the surgeon. The new margin is inked green and the specimen is serially sectioned. The specimen is entirely submitted in 2 cassettes. H. Received in formalin labeled "final inferior margin left breast," is a 2.7 x 1.2 x 0.9 cm irregular portion of fibroadipose tissue with a suture marking the biopsy cavity side, per the surgeon. The new margin is inked green and the specimen is serially sectioned. The specimen is entirely submitted in 3 cassettes. I. Received in formalin labeled "left subareolar mass," is a 1.0 x 0.8 x 0.4 cm irregular, unoriented portion of fibroadipose tissue. There is no needle localization wire present. There is no skin present. The specimen is inked green and serially sectioned. Sectioning reveals a 0.4 x 0.3 x 0.3 cm small, firm nodule. Separately received within the same container is a 0.7 x 0.3 cm small, irregular portion of firm tissue. The specimen is entirely submitted in 2 cassettes as follows: 1-tissue with nodule; 2-separate portion of tissue. 09/09/2017 saudi09/09/2017
== END 2017-09-09 10:50 ==
LOC: FASU 08:35 → FM/S 20:00 → FASU 09-09 10:50
PROVIDERS: ATTEND Surgery
PROC: DMY07ZZ Contact Radiation of Left Breast (ICD-10-PCS; principal; 2017-09-08 13:00)
PROC: 0HBU0ZZ Excision of Left Breast, Open Approach (ICD-10-PCS; 2017-09-08 13:00)
DX: C50.512 Malignant neoplasm of lower-outer quadrant of left female breast (principal); I10 Essential (primary) hypertension; I25.10 Atherosclerotic heart disease of native coronary artery without angina pectoris; E78.5 Hyperlipidemia, unspecified; E03.9 Hypothyroidism, unspecified; K21.9 Gastro-esophageal reflux disease without esophagitis; K44.9 Diaphragmatic hernia without obstruction or gangrene; K58.9 Irritable bowel syndrome, unspecified; N28.9 Disorder of kidney and ureter, unspecified; N31.9 Neuromuscular dysfunction of bladder, unspecified; D64.9 Anemia, unspecified; M54.5 Low back pain; G89.29 Other chronic pain; M19.90 Unspecified osteoarthritis, unspecified site; M81.0 Age-related osteoporosis without current pathological fracture; E55.9 Vitamin D deficiency, unspecified; Z90.710 Acquired absence of both cervix and uterus
CPT/HCPCS: 19281; 76641-TC-50; 77290; 77300; 77316; 77332; 77370-TC; 77424; 94760; C9726

== ENCOUNTER 2018-10-26 08:30 | Emergency (ER) | payer MEDICARE ==
--- NOTE | 2018-10-26 08:31 | PDOC ---
History of Present Illness - General Stated Complaint: HIGH BLOOD PRESSURE Time Seen by Provider: 10/26/18 08:31 History Source: Patient, Family (Daughter at bedside) Exam Limitations: No Limitations - History of Present Illness Initial Comments: HPI: 88 y/o female BIBEMS complaining of a difficult to describe sensation in chest that feels like heart is slow or something as well as hard to describe but things under my skin all over my body. Symptoms woke pt from sleep twice tonight. Resolved spontaneously after the first episode. Became concerned at the second episode and called for daughter who in turn called for an ambulance. Pt reports this has been an acute on chronic occurrence with an estimated five episodes over the past several months. Each episode has been self limiting but never occured in pairs. Denies associated weakness; daughter observed pt walking with walker while awaiting EMS without difficult or change from baseline. Denies h/o arrthymia. Endorses frequent urination and bilateral lower abdominal pain after voiding; daughter reports this is a chronic problem over the past several years and has been evaluated by PCP multiple times as an outpatient. Pt takes Lasix. Reports missing a few doses occasionally. Denies recent change in medication regimen. Lives at home with family. Denies recent or history of EtOH intake/abuse. PCP: Dr. Nassar Medical Hx: - HTN - Anemia of Chronic Disease - CKD, Stage 3 - Neurogenic Bladder - Hypothyroidism - Osteoarthritis - HLD Surgical Hx: - Appendectomy - Hysterectomy - Cataract Removal Past History - Past Medical History Allergies/Adverse Reactions: Allergies Allergy/AdvReac Type Severity Reaction Status Date / Time No Known Allergies Allergy Verified 05/01/18 16:28 Home Medications: Ambulatory Orders Amlodipine Besylate [Norvasc -] 10 mg PO DAILY tablet 07/06/17 Ascorbic Acid [Vitamin C -] 500 mg PO BID tablet 07/06/17 Meclizine HCl [Antivert -] 25 mg PO Q6H PRN #0 tablet 07/06/17 Levothyroxine [Synthroid -] 75 mcg PO 0600 08/03/17 Tramadol HCl 50 mg PO TID PRN #1 tablet MDD 3 08/12/17 Cyanocobalamin [Vitamin B12 -] 1,000 mcg PO DAILY 05/01/18 Donepezil HCl 5 mg PO HS 05/01/18 Metoprolol Succinate 25 mg PO BID 05/01/18 Vitamin E 200 unit PO DAILY 05/01/18 Bacitracin - [Bacitracin Topical Ointment -] 1 applic TP DAILY tube 05/11/18 Ceftriaxone [Rocephin -] 2 gm IVPB DAILY 42 Days vial 05/11/18 Docusate Sodium [Colace -] 100 mg PO TID capsule 05/11/18 Hydrocortisone 2.5% Topical Cr [Anusol-Hc -] 1 applic TP BID tube 05/11/18 Pantoprazole Sodium [Protonix -] 40 mg PO DAILY 30 Days tablet.ec 05/11/18 Picc Line Flush [Picc Line Flush -] 8 ml IVPUSH PRN PRN ml 05/11/18 Potassium Chloride [K-Dur -] 20 meq PO BID tablet.er 05/11/18 Sucralfate Oral Suspension [Carafate Oral Suspension -] 1 gm PO BID 30 Days ml 05/11/18 Anemia: Yes Asthma: No Cancer: Yes (L BREAST) Cardiac Disorders: No CVA: No COPD: No CHF: No DVT: Yes Dementia: No Diabetes: No GI Disorders: No Disorders: No HTN: Yes Hypercholesterolemia: No Liver Disease: No Seizures: No Thyroid Disease: Yes (hypothyroidism) - Surgical History Abdominal Surgery: Yes Appendectomy: Yes Cardiac Surgery: No Cholecystectomy: No Lung Surgery: No Neurologic Surgery: No Orthopedic Surgery: No - Immunization History Immunization Up to Date: Yes - Suicide/Smoking/Psychosocial Hx Smoking Status: No Smoking History: Never smoked Have you smoked in the past 12 months: No Number of Cigarettes Smoked Daily: 0 Hx Alcohol Use: No Drug/Substance Use Hx: No Substance Use Type: None Hx Substance Use Treatment: No Review of Systems - Review of Systems Able to Perform ROS?: Yes Comments:: In addition to that documented in the HPI above, the additional ROS was obtained : Constitutional: Denies fevers or chills Eyes: Denies vision changes ENMT: Denies sore throat CV: Denies chest pain Resp: Denies SOB GI: Denies vomiting or diarrhea : Per HPI MSK: Denies recent trauma Skin: Denies new rashes Neuro: Denies new numbness or tingling or weakness Endocrine: Endorses chronic polyuria Heme: Denies bleeding or bruising *Physical Exam - Physical Exam Comments: Constitutional: Well-developed, well-nourished, nontoxic elderly female in no acute distress or obvious discomfort. Found semi-fowlers on hospital bed. Alert and oriented x4. Answered all questions appropriately and completely. Speech was non-labored, non-pressured. Head: Normocephalic. No obvious external signs of trauma. Eyes: Pupils 2mm and PERRL bilaterally. EOMI. Sclerae white. EARS: Hearing grossly intact. NOSE: No nasal discharge. THROAT: Oral cavity and pharynx normal. No inflammation, swelling, exudate, or lesions. Neck: Supple, trachea is midline. Cardiovascular: Regular rate and regular rhythm. No murmur, rubs, clicks, or gallops. Peripheral pulses: Radial pulses full. Respiratory: Breathing unlabored. Equal chest rise and fall. Clear to auscultation bilaterally. No stridor, no wheezing, no rhonchi. Gastrointestinal: abdomen is soft and non-distended. No overlying skin lesions or obvious signs of trauma. Neuro: Alert and oriented. Moving all four extremities spontaneously. No focal deficits. Cranial nerves intact. Sensation to all four extremities intact. Proximal and distal strength 5/5. Engine Research Engineer strength 5/5 - equal and symmetric. Plantar flexion and dorsiflexion 5/5. Normal rapid alternating movements, heel to capps, and finger to nose. Skin: Warm, dry, and intact. No bruising, rashes, or other lesions. Psych: Affect: appropriate. Mood: normal. ED Treatment Course - LABORATORY CBC & Chemistry Diagram: 10/26/18 09:17 10/26/18 09:17 Medical Decision Making - Medical Decision Making *Reviewed vital signs, nursing notes, and prior visit documentation (if available). 88 y/o female complaining of vague chest sensation and formication. Multiple self-resolving occurrences over past few months. Concerned today because of multiple episodes in one day. Non-drinker. Low suspicion for ACS, arrhythmia, metabolic disturbance, hyperthyroidism. Given age and vague nature of symptoms, will obtain EKG, CBC, CMP, Troponin, TSH, UA, Urine Culture, and CXR. EKG: Sinus bradycardia with a ventricular rate of 58 bpm. Normal axis. Normal intervals. No ST segment elevation or depression. No hyperacute T waves. No pathologic Q waves. No delta waves or signs of Brugada. CBC unremarkable for anemia or leukocytosis. CMP unremarkable for electrolyte derangement. LFTs not elevated. BUN and Cr at pts baseline per historical [employer] lab values. TSH within normal limits. Low suspicion for hyper/hypothyroidism versus synthroid dosing error. Portable CXR unremarkable for acute cardiopulmonary process. No interval changes from previous study April 2018. Pt reasessed. Reports her symptoms have resolved and she feels ready to go home. Unable to identify cause of symptoms. Suspect likely psychogenic but will refer pt to PCP for outpatient evaluation. Discussed imaging and laboratory results with pt and daughter. Answered all questions. Provided return precautions. Pt expressed verbal understanding and agreement with plan to discharge home with outpatient follow up. *DC/Admit/Observation/Transfer Diagnosis at time of Disposition: Formication - Discharge Dispostion Disposition: HOME Condition at time of disposition: Stable Decision to Admit order: No - Referrals Referrals: Jewel Nassar MD [Primary Care Provider] - - Patient Instructions Additional Instructions: You were seen today for an abnormal feeling in your chest and over your body. Your EKG, xray, and blood work was normal. Your symptoms are not likely to be related to your heart or your blood. Your symptoms are less likely to be life threatening. Follow up with your primary care doctor within the next week or as needed to make sure you are healing. You will need to call to make an appointment. Go to the nearest emergency department if your condition worsens or you feel like you need additional emergency evaluation. - Post Discharge Activity
--- NOTE | 2018-10-26 08:32 | PDOC ---
Attending Attestation - Resident Resident Name: Lawrence Garcia - HPI HPI: 10/26/18 10:19 Pt presents to the ED complaining of a several month history of "funny feelings " that start in her chest and spread to the rest of her body. Denies pain, but states that it feels as though "things are moving through her veins". Denies itching. States that these sensations only happen at night when she is trying to sleep. - Physicial Exam PE: 10/26/18 11:12 Agree with resident exam. patient is alert and oriented x 3 and is in no acute distress. Lungs are clear. Heart has regular rate and rhythm without murmurs. abdomen is soft, non tender and non distended. Skin exam is normal. - Medical Decision Making 10/26/18 11:23 pt presents to the ED complaining of a several month history of formication that occurs when she is trying to rest only. No chest or abdominal pain, no nausea vomiting or fever and no skin findings. History is not consistent with serious causes of formication such as alcohol withdrawal or parkinson's disease. Lab work done to rule out ACS or electrolyte disturbance and is negative. Will discharge home with instructions to follow up with her PMD. 10/26/18 11:33
[2018-10-26 08:42] VITALS: BP 152/54; PULSE 58; TEMP 98.1; BMI 31.1
[2018-10-26 09:24] LABS: BASO % 0.8 % (0-2.0); EOS % 7.3 % (0-4.5); HEMATOCRIT 34.6 % (32.4-45.2); LYMPH % 29.8 % (8-40); MCH 29.7 pg (25.7-33.7); MCHC 31.7 g/dl (32.0-36.0); MEAN CELL VOLUME 93.7 fl (80-96); MEAN PLT VOLUME 7.4 fl (7.5-11.1); MONO % 14.8 % (3.8-10.2); NEUT % 47.3 % (42.8-82.8); PLATELET COUNT 342 K/MM3 (134-434); RDW 16.8 % (11.6-15.6)
[2018-10-26 09:48] LABS: PHOSPHOROUS 3.1 mg/dL (2.5-4.9)
[2018-10-26 09:59] LABS: ALBUMIN 3.6 g/dl (3.4-5.0); ALK PHOS 121 U/L (45-117); ANION GAP 8 MMOL/L (8-16); BILIRUBIN,TOTAL 0.2 mg/dL (0.2-1); BLOOD UREA NITROGEN 18 mg/dL (7-18); CALCIUM 8.7 mg/dL (8.5-10.1); CHLORIDE 103 mmol/L (98-107); CO2 28 mmol/L (21-32); CREATININE 1.6 mg/dL (0.55-1.3); GLUCOSE,RANDOM 71 mg/dL (74-106); MAGNESIUM 2.1 mg/dL (1.8-2.4); POTASSIUM 3.6 mmol/L (3.5-5.1); SGOT/AST 20 U/L (15-37); SGPT/ALT 16 U/L (13-61); SODIUM 139 mmol/L (136-145); TOT PROT 6.9 g/dl (6.4-8.2)
[2018-10-26 10:11] LABS: URINE APPEARANCE CLEAR; URINE BILIRUBIN NEGATIVE (<2.0 mg/dL); URINE COLOR COLORLESS; URINE GLUCOSE (UA) NEGATIVE (NEGATIVE); URINE KETONE NEGATIVE (NEGATIVE); URINE LEUK ESTERASE NEGATIVE (NEGATIVE); URINE NITRITE NEGATIVE (NEGATIVE); URINE PROTEIN NEGATIVE (NEGATIVE); URINE UROBILINOGEN NEGATIVE mg/dL (0.2-1.0)
[2018-10-26 10:24] LABS: EPI CELLS RARE /HPF (FEW); URINE BACTERIA RARE /hpf (NONE SEEN)
--- NOTE | 2018-10-27 19:01 | EKG ---
Test Reason : Blood Pressure : / mmHG Vent. Rate : 058 BPM Atrial Rate : 058 BPM P-R Int : 234 ms QRS Dur : 088 ms QT Int : 498 ms P-R-T Axes : 054 -06 023 degrees QTc Int : 488 ms SINUS BRADYCARDIA WITH 1ST DEGREE A-V BLOCK CANNOT RULE OUT ANTERIOR INFARCT , AGE UNDETERMINED ABNORMAL ECG WHEN COMPARED WITH ECG OF 10-MAY-2018 08:59, PREMATURE VENTRICULAR COMPLEXES ARE NO LONGER PRESENT IN INTERVAL HAS INCREASED NONSPECIFIC T WAVE ABNORMALITY NO LONGER EVIDENT IN LATERAL LEADS Confirmed by GIOVANNI ROB MD ([id number]) on 10/27/2018 7:01:26 PM Referred By: Confirmed By:GIOVANNI ROB MD
== END 2018-10-26 12:04 | disposition home or self-care (01) ==
LOC: JER 08:30 → SUPCPDRO 08:30 → JER 12:04
DX: R20.2 Paresthesia of skin (principal); I12.9 Hypertensive chronic kidney disease with stage 1 through stage 4 chronic kidney disease, or unspecified chronic kidney disease; N18.3 Chronic kidney disease, stage 3 (moderate); E03.9 Hypothyroidism, unspecified; D64.9 Anemia, unspecified; E78.5 Hyperlipidemia, unspecified; M19.90 Unspecified osteoarthritis, unspecified site; N31.9 Neuromuscular dysfunction of bladder, unspecified
CPT/HCPCS: 36415; 71045-TC-FY; 80053; 81003; 81015; 83735; 84100; 84443; 84484; 85025; 87086; 93005; 93010; 99283-25